=== PATIENT | female | born 1990 | race Caucasian/White ===

== ENCOUNTER 2018-02-11 17:34 | Inpatient (IN) ==
[2018-02-11] MEDS ORDERED: Diphtheria/Tetanus/Pertussis Vaccine Inj 0.5 ML Syringe IM ONE (17:42)
[2018-02-11] MEDS ORDERED: Midazolam Inj 5 MG/ML 1 ML Vial ONE (17:42)
--- NOTE | 2018-02-11 17:49 | XR ---
EXAM DATE: 02/11/2018 5:45 PM EST AGE/SEX: 89 years / Female INDICATIONS: Trauma alert. Seizure and dog attack. CLINICAL DATA: This is the patient's initial encounter. Patient reports that signs and symptoms have been present for 1 day and indicates a pain score of Nonresponsive. MEDICAL/SURGICAL HISTORY: Non-responsive. Non-responsive. COMPARISON: No prior exams available for comparison. FINDINGS: Endotracheal tube has its tip 2 cm above the chilo. The heart is normal. The pulmonary vascular kathryn joseph is normal. The lungs are clear. CONCLUSION: 1. Endotracheal tube in good position 2 cm above the chilo. 2. No acute focal pulmonary infiltrate or pulmonary vascular congestion. Electronically signed by: Michael Jones MD Board Certified Radiologist 02/11/2018 5:47 PM EST
[2018-02-11] MEDS ORDERED: Protamine Sulfate Inj 50 MG/5 ML Vial ONE (17:54)
[2018-02-11] MEDS ORDERED: Heparin 10,000 UNITS/10 ML Vial (for IV use) ONE (17:54)
[2018-02-11] MEDS ORDERED: Heparin - SQ 10,000 UNITS/ML Vial ONE (17:54)
[2018-02-11 17:57] LABS: Baso % (Auto) 0.2 % (0.0-2.0); Eos # (Auto) 0.1 th/mm3 (0.0-0.4); Eos % (Auto) 0.4 % (0.0-4.0); Hematocrit 38.4 % (35.0-46.0); Hemoglobin 13.2 gm/dL (11.6-15.3); Lymph # (Auto) 3.1 th/mm3 (1.0-4.8); Lymph % (Auto) 17.7 % (9.0-44.0); Mean Corpuscular HGB Conc 34.4 % (32.0-36.0); Mean Corpuscular Hemoglobin 33.9 pg (27.0-34.0); Mean Corpuscular Volume 98.4 fL (80.0-100.0); Mean Platelet Volume 8.7 fL (7.0-11.0); Mono # (Auto) 0.9 th/mm3 (0.0-0.9); Mono % (Auto) 5.1 % (0.0-8.0); Neut # (Auto) 13.4 th/mm3 (1.8-7.7); Neut % (Auto) 76.6 % (16.0-70.0); Platelet Count 206 th/mm3 (150-450); Red Cell Distribution Width 12.6 % (11.6-17.2); White Blood Count 17.5 th/mm3 (4.0-11.0)
[2018-02-11 18:10] LABS: Activated Partial Thrombo Time 25.6 sec (23.4-31.7); INR 1.1 Ratio; Prothrombin Time 11.4 sec (9.8-11.6)
--- NOTE | 2018-02-11 18:18 | ED ---
HPI General Stated Complaint: Trauma Alert Time Seen by Provider: 02/11/18 18:06 Source: EMS Mode of arrival: EMS Limitations: other History of Present Illness HPI narrative: The patient is a 27-year-old female who presents to the emergency department via EMS as a trauma alert. According to EMS the patient apparently had a seizure at home, has a known history of seizures, but during the course of the seizure there was several pit bulls in the room. A bystander stated that the pit bulls became excited and 1 of them attacked the patient, biting her in the right neck and left face. EMS states they had to wait approximately 5-10 minutes for the dog to be cleared out of the room prior to assessing the patient. They stated initially the patient was out running around stating she was short of breath. Over the course of the next 5-10 minutes they noted the patient started to deteriorate, became lethargic, and started "gurgling blood "out of the neck and mouth. Therefore, EMS intubated the patient in the field to protect her airway. The patient was noted to be tachycardic in the field with a heart rate in the 120s. EMS did not know if the patient had any allergies to medications or what medication she took for seizures. Upon arrival the patient is unable to answer any questions. Related Data Allergies Allergy/AdvReac Type Severity Reaction Status Date / Time No Allergy Information Allergy Unverified 02/11/18 17:34 Available Review of Systems ROS Unobtainable ROS Unobtainable: unobtainable due to endotracheal tube and other Exam Narrative Exam Narrative: GENERAL: Approximately 33-11[age]-old female who arrives intubated. SKIN: Multiple lacerations and dog bites to the left aspect of the face extending up behind the left ear. Some of these do involve subcutaneous tissue. Multiple puncture wounds to the right aspect of the neck, the most superior one does have a small amount of air bubbles every time the patient has a breath via bag valve mask. HEAD: Multiple dog bites to the left face and right neck. EYES: Pupils equal and round. 3 mm bilateral and reactive. ENT: No nasal bleeding or discharge. Mucous membranes pink and moist. Visible superficial lacerations to the tongue. Tongue ring noted. NECK: Multiple dog bites to the right aspect of the neck. Mild subcutaneous air noted. CARDIOVASCULAR: Regular, tachycardic with a heart rate in the 120s. RESPIRATORY: No accessory muscle use. Clear to auscultation. Breath sounds equal bilaterally. GASTROINTESTINAL: Abdomen soft, non-tender, nondistended. No rigidity noted. MUSCULOSKELETAL: No obvious deformities. No clubbing. No cyanosis. No edema. No visible bites to the extremities. NEUROLOGICAL: Intubated. Eyes closed, nonverbal, does move her arms at times, pulling toward the endotracheal tube prior to sedation. Back: No obvious dog bites to the back. PSYCHIATRIC: Unable to assess. Course Initial Documented Vital Signs Pulse Oximetry 100 02/11/18 18:01 Last Documented Vital Signs Pulse Oximetry 100 02/11/18 18:01 Critical Care Time Critical Care Time: Yes Total Critical Care Time: 35 Attestation: Aggregate critical care time was 35 minutes. Time to perform other separately billable procedures was not included in the critical care time. My time did not include minutes spent treating any other patients simultaneously or on activities that did not directly contribute to the patient's treatment. The services I provided to this patient were to treat and/or prevent clinically significant deterioration that could result in: Anoxia, hypoxia, aspiration, infection, subcutaneous emphysema, air embolism. I provided critical care services requiring my management, as noted below: Chart data review, documentation time, medication orders and management, vital sign assessments/reviewing monitor data, ordering and reviewing lab tests, ordering and interpreting/reviewing x-rays and diagnostic studies, care of the patient and discussion of the patient with the admitting physicians. Medical Decision Making MDM Narrative Medical decision making narrative: Upon arrival the trauma surgeon, Dr. Mccarthy, was present when the patient arrived. The patient was intubated in the field, airway and breathing were intact, there were bilateral breath sounds noted prior to transfer. The patient was transferred to the [facility], 2 large-bore IVs were established, labs are drawn and sent, and the patient was placed on cardiac telemetry monitoring and continuous pulse oximetry monitoring. Chest x- ray was obtained revealing appropriate endotracheal depth, no obvious pneumothorax, small amount of subcutaneous emphysema in the left aspect of the neck noted. The patient was logrolled off the backboard and the back was inspected. The patient received a tetanus shot, Unasyn 3 g intravenously, Keppra 1 g intravenously, IV fluids, propofol 50 mics intravenously, and Versed 5 mg intravenously for sedation. I discussed the patient with the plastic surgeon, Dr. Mireles, who recommended we call [facility] for the complex facial lacerations. Therefore, I discussed the patient with Dr. Severino, F, who will evaluate the patient in the operating room with Dr. Mccarthy. The patient will be admitted to the intensive surgical care unit under the care of the trauma surgeon, Dr. Mccarthy. Medical Screen Exam Complete: Yes Emergency Medical Condition: Yes Differential Diagnosis Differential Diagnosis: Differential diagnosis includes arterial injury, venous injury, esophageal injury, subcutaneous emphysema, complex facial laceration, seizure. Lab Data Result diagrams: 02/11/18 17:36 Lab Results 02/11/18 02/11/18 02/11/18 Range/Units 17:36 17:36 17:36 WBC 17.5 H (4.0-11.0) th/mm3 RBC 3.90 L (4.00-5.30) mil/mm3 Hgb 13.2 (11.6-15.3) gm/dL POC Hgb (Calc) 12.6 (11.6-15.3) g/dL Hct 38.4 (35.0-46.0) % POC Hct 37.0 (35-46.0) % MCV 98.4 (80.0-100.0) fL MCH 33.9 (27.0-34.0) pg MCHC 34.4 (32.0-36.0) % RDW 12.6 (11.6-17.2) % Plt Count 206 (150-450) th/mm3 MPV 8.7 (7.0-11.0) fL Neut % (Auto) 76.6 H (16.0-70.0) % Lymph % (Auto) 17.7 (9.0-44.0) % Payne % (Auto) 5.1 (0.0-8.0) % Eos % (Auto) 0.4 (0.0-4.0) % Baso % (Auto) 0.2 (0.0-2.0) % Neut # (Auto) 13.4 H (1.8-7.7) th/mm3 Lymph # (Auto) 3.1 (1.0-4.8) th/mm3 Payne # (Auto) 0.9 (0.0-0.9) th/mm3 Eos # (Auto) 0.1 (0.0-0.4) th/mm3 Baso # (Auto) 0.0 (0.0-0.2) th/mm3 WBC Differential . Differential Comment Auto diff final PT 11.4 (9.8-11.6) sec INR 1.1 Ratio APTT 25.6 (23.4-31.7) sec POC Sodium 142 (137-144) mmol/L POC Potassium 3.2 L (3.6-5.0) mmol/L POC Chloride 106 (102-111) mmol/L POC BUN 10 (5-21) mg/dL POC Creatinine 0.9 (0.6-1.3) mg/dL POC Glucose 129 H (68-110) mg/dL Imaging Data Attestation: I personally reviewed and interpreted this imaging study as follows : My impression: Chest x-ray reveals endotracheal tube is in good position. No obvious pneumothorax. Radiologist's impression: Chest X-Ray 02/11/18 17:35 CONCLUSION: 1. Endotracheal tube in good position 2 cm above the chilo. 2. No acute focal pulmonary infiltrate or pulmonary vascular congestion. Discharge Plan Discharge Disposition Patient Disposition: ED Admit(ED Internal Use Only) Discharge Condition Condition: Stable Discharge Order Discharge Orders: ED Use Only Admit Order (Routine); Ordered 02/11/18 Ordered By: Félix Martin Discharge Details Diagnosis: Dog bite of multiple sites of scalp and neck Physicians Team ED Provider: Félix Martin Primary Care Provider: UNKNOWN, Attending Provider: Anish Meneses Status ED Status: Admitted Patient
[2018-02-11] MEDS: Ampicillin/Sulbactam Inj 1,500 MG IV.SIG SCH ×2 (18:26)
[2018-02-11] MEDS ORDERED: Post-op Orders (for Pharmacy) OTHER ONE (19:26)
[2018-02-11] MEDS ORDERED: Bisacodyl 10 MG Supp RECTAL PRN (19:26)
[2018-02-11] MEDS ORDERED: Naloxone Inj 0.4 MG/ML Vial IV.PUSH PRN (19:26)
[2018-02-11] MEDS ORDERED: Propofol 1000 mg/100 ml Inj 1,000 MG/100 ML BOTTLE IV.CONT PRN (19:33)
[2018-02-11] MEDS ORDERED: levETIRAcetam 1000mg/100mL Inj 100 ML IV.SIG SCH (19:33)
[2018-02-11] MEDS ORDERED: fentaNYL 10 mcg/mL Premix Drip 2,500 MCG/250 ML BAG IV.SIG PRN (19:34)
[2018-02-11] MEDS ORDERED: Sodium Chloride 0.9% 2 ML Flush PRN IV.FLUSH (19:36)
--- NOTE | 2018-02-11 20:05 | MH ---
cc: Anish Meneses MD DATE OF ADMISSION: 02/11/2018 ADMITTING PHYSICIAN: Anish Meneses MD, of trauma surgery. REASON FOR ADMISSION: Seizure and dog bites to the neck. HISTORY OF PRESENT ILLNESS: This is a 27-year-old female who presents as a priority 1 trauma alert who was brought by EMS. Apparently, the patient had a seizure at home and then was bitten by her dog in the neck numerous times. On arrival, the patient is on a spinal board with a C-collar in place and intubated. PAST MEDICAL HISTORY: Seizures. The patient has been multiple times to this institution. Once I had the name, I looked her up. The patient has been on multiple medications. There is also a medical history of noncompliance with her medications, according to family. PAST SURGICAL HISTORY: I do not see any surgical history in the old records. PHYSICAL EXAMINATION: GENERAL: Reveals a 27-year-old female. HEENT: Normocephalic. No trauma to the head; however, trauma to the face and neck. Pupils are equal and reactive. Extraocular muscles cannot be tested. The patient is orally intubated. NECK: The patient has multiple small lacerations on the left side of the neck which are superficial. On the right side of the neck, the patient has deep lacerations which are bleeding dark venous blood and clearly are located around the area of the jugular and carotid. Dressing is immediately reapplied. CHEST: Bilateral breath sounds. No signs of trauma to the chest. HEART: Regular rhythm. The patient is hemodynamically stable. ABDOMEN: Soft. No rebound. No guarding. No masses. No signs of trauma to the abdomen. The patient does have a bunch of scratches over her chest and abdomen. Some of them are old and some are newer. EXTREMITIES: The patient has bilateral femoral, popliteal, dorsalis pedis and posterior tibial pulses and bilateral brachial, ulnar and radial pulses. BACK: Normal. NEUROLOGIC: The patient is now intubated and ventilated; however, she does move all 4 extremities and tried to rip her tube out. Therefore, she had to be sedated. IMPRESSION AND RECOMMENDATIONS: A patient with multiple dog bites post seizure. The patient will be immediately taken to the operating room due to the depth and bleeding of the right side of the neck injuries. Plastic surgery has been consulted to come up there and help with repair of this. I do not believe initially the patient has any carotid injury, but probably has some branches of the jugular vein injured and I do not know what else. After all well and done, the patient will undergo a CT scan of the head and a CT of the neck soft tissues to evaluate this further. Right now, the patient needs to go to the operating room. CRITICAL CARE TIME: 38 minutes. MD YANCY Lloyd/cheyanne , 07:43 PM , 07:51 PM MTDPolly
--- NOTE | 2018-02-11 20:11 | MP ---
cc: Anish Meneses MD DATE OF OPERATION: 02/11/2018 PREOPERATIVE DIAGNOSIS: Dog bites to the right and left neck, deeper on the right. POSTOPERATIVE DIAGNOSIS: Dog bites to the right and left neck, deeper on the right. OPERATIVE PROCEDURE: Exploration of the right neck with ligation of various branches of the jugular vein and irrigation of the neck tissues with drain placement. SURGEON: Anish Meneses MD ANESTHESIA: General. ESTIMATED BLOOD LOSS: 30 mL. It should be noted that an oral maxillofacial plastic surgeon was treating the left side of the neck and this is described in separate dictation. DESCRIPTION OF PROCEDURE: The patient was prepped and draped in the usual fashion. Then, a right presternocleidomastoid incision was made and deepened down through the platysma to the level of the muscle. The carotid sheath was opened and the common carotid, internal and external carotid arteries are intact. The jugular vein was intact. In the posterior triangle of the neck just between the borders of the trapezius posteriorly, sternocleidomastoid anteriorly and clavicle inferiorly, there were a lot of damaged muscle and fibers torn, probably belonging to the posterior and scalenus muscle and middle scalenus muscle. The splenius muscle was probably also torn. The tears reached down almost to the ligaments of the cervical spine, and in the process, obviously, nerves had been injured as well. I could not locate the accessory nerve here considering the amount of damage. The devitalized muscle was debrided. Small branches of the jugular vein and the carotid artery going posteriorly were clamped and ligated with 2-0 Vicryl and then the area was once more explored. The injuries did not going to the pharynx, which was good. A 7 flat ASHTYN was placed now in the area. Tissues were loosely approximated over it with 3-0 Vicryl in layers and then the skin was closed by plastic surgery. The patient tolerated the procedure well. After the completion of procedure, the patient will go for a CT scan of the head and neck to assess this better, and once she was extubated in the next day, then we will see what the neurologic function is and how much damage was done to the tissues by the bites. MD YANCY Lloyd/cheyanne , 07:47 PM , 07:54 PM
[2018-02-11] MEDS ORDERED: fentaNYL Citrate Inj 100 MCG/2 ML Ampul ONE (21:12)
--- NOTE | 2018-02-11 21:12 | P.OP ---
- Preoperative Diagnosis (1) Dog bite of face (2) Dog bite of multiple sites of scalp and neck - Postoperative Diagnosis (1) Dog bite of multiple sites of scalp and neck (2) Dog bite of face Date of procedure: 02/11/18 Procedure: - Primary closure (layered) of multiple bilateral face and neck lacerations (12- 20cm) Anesthesia: GETA Surgeon: Tee Severino DDS, MD Estimated blood loss (mL): 50 IV fluids (mL): 2,500 Urine output (mL): 100 Pathology: none sent Operation and Findings: Indications for procedure: - The maxillofacial surgery service was consulted intraoperatively for evaluation and management of multiple lacerations to the bilateral neck and face following a dog bite injury. Operative Findings: - Multiple lacerations of the bilateral face and neck extending to the level of the platysma and sternocleidomastoid muscles - Most superior laceration (1cm in length) of the left face extended to the parotid gland. Unable to visualize facial nerve within the wound. - Avulsed tissue in the left post-auricular region. Procedure details: Upon arrival to the operative room, the patient was already intubated oroendotracheally and was positioned supine. Due to the emergent nature of the concomitant neck exploration with the trauma surgery service, informed consent was not obtained preoperatively for closure of the neck and face lacerations. A second timeout was made. The patient was prepped and draped in a usual office supervisor manner. All wounds were then irrigated with copious normal saline. The most superior laceration of the left face was explored and the parotid gland was visualized. No specific facial nerve branches/trunk could be identified. The wounds on the left side of the face were closed in layers with 3-0 Vicryl suture for the deepest layer (platysma and sternocleidomastoid muscle) in an interrupted fashion. The subcutaneous tissue was closed with 4-0 Monocryl in an interrupted fashion. The skin was then reapproximated with 5-0 fast absorbing suture in both a running and interrupted fashion. There appeared to be an avulsive injury of the left post-auricular skin and the tissue was rearranged to obtain primary closure. Next, following exploration of the right neck by the trauma surgery service, attention was turned to the right neck. Multiple superficial lacerations were irrigated with normal saline and closed with 5-0 fast absorbing suture in an interrupted and running fashion. The explored neck wound with a ASHTYN drain that was placed by the trauma surgery service was then closed in layers following irrigation with 3-0 Vicryl, 4-0 Monocryl in an interrupted fashion and 5-0 fast absorbing suture in a running fashion. The ASHTYN drain was secured in place with 1 , 3-0 Nylon drain suture. The remaining lacerations of the right neck were irrigated and closed in layers with 3-0 Vicryl, 4-0 Monocryl sutures in an interrupted fashion and 5-0 fast absorbing suture in a running fashion. The patient was cleansed and dried. Bacitracin was applied to the bilateral neck /face wounds and Xeroform gauze was placed over the bacitracin. Gauze and a Kerlix dressing were placed. The patient was then turned back to the Anesthesia team, where she remained intubated and was transported to the ICU for continued wound care and neurological monitoring.
[2018-02-11] MEDS ORDERED: Propofol Inj 500 MG/50 ML Vial ONE (21:18)
[2018-02-11] MEDS: Sod Chloride 0.9% Inj 1,000 ML IV.CONT SCH (21:30)
[2018-02-11] MEDS: levETIRAcetam 1000mg/100mL Inj 100 ML IV.SIG SCH (21:57)
[2018-02-11] MEDS: Pantoprazole Inj 40 MG Vial IV.PUSH SCH (21:57)
[2018-02-11] MEDS: lamoTRIgine 100 MG Tablet PO SCH (21:58)
[2018-02-11] MEDS: Sodium Chloride 0.9% 2 ML Flush BID IV.FLUSH SCH (21:58)
[2018-02-11] MEDS: Senna/Docusate Sodium 8.6/50 MG Tablet PO SCH (21:58)
[2018-02-11] MEDS: Vancomycin Inj 1,000 MG in Sodium Chlor 0.9% Inj 250 ML IV.SIG SCH (22:26)
--- NOTE | 2018-02-11 23:08 | CT ---
EXAM DATE: 02/11/2018 11:00 PM EST AGE/SEX: 89 years / Female INDICATIONS: Trauma. Seizures with fall. CLINICAL DATA: This is the patient's initial encounter. Patient reports that signs and symptoms have been present for 1 day and indicates a pain score of Nonresponsive. MEDICAL/SURGICAL HISTORY: Non-responsive. Non-responsive. RADIATION DOSE: 38.43 CTDI (mGy) [place]PAR[place] [facility] [place], 02/11/2018. . TECHNIQUE: CT of the head without contrast. Using automated exposure control and adjustment of the mA and/or kV according to patient size, radiation dose was kept as low as reasonably achievable to ob tain optimal diagnostic quality images. DICOM format image data is available electronically for revi ew and comparison. FINDINGS: Cerebrum: The ventricles are normal for age. No evidence of midline shift, mass lesion, hemorrhage o r acute infarction. No extraaxial fluid collections are seen. Posterior Fossa: The cerebellum and brainstem are intact. The 4th ventricle is midline. The cerebe llopontine angle is unremarkable. Extracranial: The visualized portion of the orbits is intact. Subcutaneous emphysema extending from the cervical soft tissues towards the skull base. Skull: The calvaria is intact. No evidence of skull fracture. CONCLUSION: 1. No acute intracranial abnormality. 2. Cervical soft tissue emphysema extending towards the skull base. Please see CT neck report for ad ditional details. . Electronically signed by: Stanley Enrique MD Board Certified Radiologist 02/11/2018 11:06 PM E
--- NOTE | 2018-02-11 23:20 | CT ---
EXAM DATE: 02/11/2018 11:01 PM EST AGE/SEX: 89 years / Female INDICATIONS: Trauma. Dog bite to neck CLINICAL DATA: This is the patient's initial encounter. Patient reports that signs and symptoms have been present for 1 day and indicates a pain score of Nonresponsive. MEDICAL/SURGICAL HISTORY: Non-responsive. Non-responsive. RADIATION DOSE: 15.71 CTDI (mGy) COMPARISON: No prior exams available for comparison. TECHNIQUE: Helical acquisition was performed using a multirow detector CT scanner during the adminis tration of 75 ml Omnipaque 350 (iohexol) nonionic water-soluble contrast as a single exam dose. Usi ng automated exposure control and adjustment of the mA and/or kV according to patient size, radiation dose was kept as low as reasonably achievable to obtain optimal diagnostic quality images. DICOM fo rmat image data is available electronically for review and comparison. FINDINGS: There is extensive subcutaneous emphysema extending from the base of the anterior neck cephalad bilat erally. This reaches the inferior periauricular region on the left and parotid region on the right. S ubcutaneous at the same extends to the parapharyngeal space and oropharynx. There is an apparent ante rior lower cervical soft tissue drain which extends cephalad adjacent to the transverse process of C4 on the right. There is an ET tube in place which terminates at the level of the clavicles. There is obliteration of the laryngeal and oropharyngeal air with obliteration of the tissue planes consistent with diffuse edema. The right thyroid cartilage is displaced posteriorly with respect to the left. T here is no definitive evidence for contrast extravasation. There is circumferential mild to moderate narrowing of the distal right common carotid artery just below the bulb. There is mild luminal irregu larity in the bulb likely reflecting posterior plaque. Carotid branches appear grossly intact. The ju gular veins are patent bilaterally. No evidence for contrast extravasation on delayed imaging. Visual ized lung apices are clear without pneumothorax. Osseous structures appear intact without definitive evidence for acute bony fracture. CONCLUSION: 1. Extensive anterior cervical soft tissue injury with diffuse subcutaneous emphysema extending to n ear the skull base, as described above. 2. There is an ET tube in good position. There is obliteration of the laryngeal and oropharyngeal ai r and fat planes consistent with diffuse edema. 3. Suspect right thyroid cartilage injury which appears displaced posteriorly. 4. Focal circumferential mild to moderate narrowing of the distal right common carotid artery just b elow the bulb. No definitive evidence for dissection or active hemorrhage at this time. Cannot exclud e focal vasospasm. Electronically signed by: Stanley Enrique MD Board Certified Radiologist 02/11/2018 11:18 PM E
[2018-02-12] MEDS ORDERED: Clindamycin 600 mg/NS Premix 600 MG/50 ML PIGGYBACK IV.SIG SCH
[2018-02-12 00:42] LABS: ABG Base Excess -2.7 mmol/L (-2-2); ABG PCO2 41 mmHg (38-42); ABG PO2 219 mmHg (61-120)
[2018-02-12] MEDS ORDERED: Midazolam 100 MG/100 ML Inj 100 MG/100 ML BAG IV.CONT PRN (00:58)
[2018-02-12] MEDS ORDERED: Sod Chloride 0.9% Inj 1,000 ML IV.SIG ONE (01:00)
[2018-02-12] MEDS: Ampicillin/Sulbactam Inj 1,500 MG IV.SIG SCH ×10 (01:43→21:05)
[2018-02-12 05:01] LABS: Baso % (Auto) 0.2 % (0.0-2.0); Hematocrit 27.7 % (35.0-46.0); Lymph # (Auto) 0.9 th/mm3 (1.0-4.8); Lymph % (Auto) 10.8 % (9.0-44.0); Mean Corpuscular Hemoglobin 34.7 pg (27.0-34.0); Mean Corpuscular Volume 96.5 fL (80.0-100.0); Mean Platelet Volume 8.4 fL (7.0-11.0); Mono # (Auto) 0.6 th/mm3 (0.0-0.9); Mono % (Auto) 7.6 % (0.0-8.0); Neut # (Auto) 6.7 th/mm3 (1.8-7.7); Neut % (Auto) 81.4 % (16.0-70.0); Platelet Count 113 th/mm3 (150-450); Red Blood Count 2.87 mil/mm3 (4.00-5.30); Red Cell Distribution Width 12.8 % (11.6-17.2); White Blood Count 8.3 th/mm3 (4.0-11.0)
[2018-02-12 05:27] LABS: Calcium 6.9 mg/dL (8.5-10.1); Carbon Dioxide 23.5 meq/L (21.0-32.0); Potassium 3.9 meq/L (3.5-5.1)
[2018-02-12 05:43] LABS: Albumin 2.8 g/dL (3.4-5.0); Calcium-Albumin Corrected 7.9 mg/dL (8.5-10.1)
--- NOTE | 2018-02-12 07:35 | P.CON ---
History of Present Illness Service: Oral & Maxillofacial Surgery Consult date: 02/11/18 Requesting Physician: Anish Meneses Reason for Consult: Dog bite to face and neck Primary Care Provider: UNKNOWN Chief Complaint: s/p dog bite History of Present Illness: Per report upon arrival to the operating room, the patient is a 29 something year old female with a history of seizure disorder who suffered a seizure and was attacked by one or multiple pit bulls. She was intubated on the scene and transported to [facility]. Due to the continued bleeding from the right neck wounds, she was taken emergently to the operating room for wound exploration. I arrived in the operating room to find the patient intubated and under general anesthetic in the supine position on the operating room table. The Oral & Maxillofacial Surgery Service was consulted for evaluation and management of the multiple facial and neck lacerations sustained during the injury. Review of Systems unobtainable due to endotracheal tube, unobtainable due to mental condition PMFSH - History History Provided By: Patternmaker Sample / EMT Medications and Allergies Active Medications: Active Medications Al Hydroxide/Mg Hydroxide (Milk Of Magnesia Liq) 30 ml PO Q12H PRN PRN Reason: Mild Constipation Albuterol (Duoneb Neb (Prn)) 1 ampul NEB Q2HR NEB PRN PRN Reason: SHORTNESS OF BREATH Albuterol (Duoneb Neb (Valdo)) 1 ampul NEB Q4HR NEB VALDO Bisacodyl (Dulcolax Supp) 10 mg RECTAL DAILY PRN PRN Reason: SEVERE CONSITIPATION Chlorhexidine Gluconate (Peridex 0.12% Oral Kit) 15 ml OROPHARYNG BID@0800, 2000 VALDO Enoxaparin Sodium (Lovenox Inj) 40 mg SQ Q24H VALDO Ampicillin Sodium/Sulbactam Sodium 1,500 mg/ Sodium Chloride 100 mls @ 200 mls/ hr IV.SIG Q6H VALDO Last Infusion: 02/12/18 07:03 Dose: Infused Clindamycin/Sodium Chloride (Cleocin 600 Mg/Ns Premix) 600 mg in 50 mls @ 100 mls/hr IV.SIG Q8H VALDO Stop: 02/12/18 16:29 Last Infusion: 02/12/18 01:43 Dose: Infused Sodium Chloride (Ns Inj) 1,000 mls @ 100 mls/hr IV.CONT .Q10H VALDO Last Admin: 02/11/18 21:30 Dose: 100 mls/hr Vancomycin HCl 1,000 mg/ (Sodium Chloride) 250 mls @ 250 mls/hr IV.SIG Q12H VALDO Stop: 02/12/18 10:59 Last Infusion: 02/11/18 23:49 Dose: Infused Fentanyl (Fentanyl 10 Mcg/Ml Premix Drip) 2,500 mcg in 250 mls @ 5 mls/hr IV.SIG TITRATE PRN; Protocol PRN Reason: Per Protocol Last Titration: 02/12/18 02:15 Dose: 100 mcg/hr, 10 mls/hr Propofol (Diprivan 1000 Mg/100 Ml Inj) 1,000 mg in 100 mls @ 1.893 mls/hr IV.CONT TITRATE PRN; Protocol PRN Reason: Per Protocol Last Titration: 02/12/18 02:15 Dose: 0 mcg/kg/min, 0 mls/hr Levetiracetam (Keppra 1000 Mg/100 Ml Premix) 100 mls @ 400 mls/hr IV.SIG Q12H [facility] Last Infusion: 02/11/18 22:26 Dose: Infused Midazolam HCl (Versed Inj) 100 mg in 100 mls @ 2 mls/hr IV.CONT TITRATE PRN; Protocol PRN Reason: See protocol Last Titration: 02/12/18 07:03 Dose: 4 mg/hr, 4 mls/hr Lactulose (Lactulose Liq) 30 ml PO DAILY PRN PRN Reason: SEVERE CONSITIPATION Lamotrigine (Lamictal) 100 mg PO BID [facility] Last Admin: 02/11/18 21:58 Dose: Not Given Miscellaneous Medication () 1 each OROPHARYNG 0000,0400,1200,1600 [facility] Naloxone HCl (Narcan Inj) 0.4 mg IV.PUSH UNSCH PRN PRN Reason: SEE LABEL COMMENTS Ondansetron HCl (Zofran Inj) 4 mg IV.PUSH Q6H PRN PRN Reason: NAUSEA OR VOMITING Pantoprazole Sodium (Protonix Inj) 40 mg IV.PUSH Q24H [facility] Last Admin: 02/11/18 21:57 Dose: 40 mg Senna/Docusate Sodium (Hanna-Colace) 1 tab PO BID [facility] Last Admin: 02/11/18 21:58 Dose: Not Given Sennosides (Senokot) 17.2 mg PO Q12H PRN PRN Reason: Moderate Constipation Sodium Chloride (Ns Flush) 2 ml IV.FLUSH BID VALDO Last Admin: 02/11/18 21:58 Dose: 2 ml Sodium Chloride (Ns Flush) 2 ml IV.FLUSH PRN PRN PRN Reason: FLUSH AFTER USING IV ACCESS Allergies Allergy/AdvReac Type Severity Reaction Status Date / Time No Allergy Information Allergy Unverified 02/11/18 17:34 Available Physical Exam Vital signs: Vital Signs 02/11/18 18:01 02/11/18 18:09 02/11/18 21:14 Temperature Pulse Rate 84 Respiratory Rate 15 Blood Pressure 101/54 L Pulse Oximetry 100 100 02/11/18 21:15 02/11/18 21:17 02/11/18 21:20 Temperature 98.9 F Pulse Rate 106 H 83 94 H Respiratory Rate 26 H 17 24 Blood Pressure 104/58 L 104/58 L 113/63 Pulse Oximetry 100 100 100 02/11/18 21:23 02/11/18 21:29 02/11/18 22:00 Temperature Pulse Rate 97 H 111 H 87 Respiratory Rate 28 H 46 H 21 Blood Pressure 111/62 122/62 Pulse Oximetry 100 100 100 02/11/18 22:03 02/11/18 23:00 02/12/18 00:00 Temperature 98.3 F Pulse Rate 86 101 H 65 Respiratory Rate 19 37 H 17 Blood Pressure 104/54 L 118/67 93/55 L Pulse Oximetry 100 100 100 02/12/18 00:05 02/12/18 00:36 02/12/18 01:00 Temperature Pulse Rate 62 79 Respiratory Rate 17 16 13 Blood Pressure 91/50 L 105/62 Pulse Oximetry 99 100 100 02/12/18 02:00 02/12/18 03:00 02/12/18 03:19 Temperature Pulse Rate 63 69 Respiratory Rate 16 16 16 Blood Pressure 89/53 L 98/61 L Pulse Oximetry 100 99 100 02/12/18 04:00 02/12/18 05:00 02/12/18 06:00 Temperature 98.2 F Pulse Rate 77 68 73 Respiratory Rate 16 16 16 Blood Pressure 105/67 93/52 L 91/51 L Pulse Oximetry 100 98 100 Intake & Output 02/11/18 02/12/18 02/12/18 18:59 06:59 18:59 Intake Total 1600 / 1600 100 / 100 Output Total 585 / 585 Balance 1015 / 1015 100 / 100 Weight 65.1 kg Intake: IV 1600 / 1600 100 / 100 Unasyn Inj 1,500 MG In NS Inj 200 / 200 100 / 100 100 ML @ 200 mls/hr IV.SIG Q6H VALDO Rx#:[id number] Cleocin 600 mg/NS Premix 600 mg 50 / 50 In 50 ml @ 100 mls/hr IV.SIG Q8H VALDO Rx#:[id number] NS Inj 1,000 ML @ As Directed 1000 / 1000 IV.SIG .Q0M ONE Rx#:[id number] Vancomycin Inj 1,000 MG In NS 250 / 250 Inj 250 ML @ 250 mls/hr IV.SIG Q12H VALDO Rx#:[id number] Keppra 1000 mg/100 mL Premix 100 / 100 100 ML @ 400 mls/hr IV.SIG Q12H VALDO Rx#:[id number] Output: Urine Amount (Catheter) 525 / 525 Indwelling Urethral Catheter 525 / 525 Wound Drainage 60 / 60 # 1 Right Neck 60 / 60 Other: Weight On Admission 63.1 kg Narrative: General: Intubated and under general anesthesia Neurological: Unable to assess cranial nerve function due to patient's mental status HEENT: Head/Face: Multiple lacerations of the bilateral neck and face extending to the level of the platysma, sternocleidomastoid, and left parotid gland, total length between 12-20cm. Unable to visualize facial nerve or any nerve branch involvement at the level of the most superior laceration of the left face, over the cheek. Cardiovascular: Regular rate Pulmonary: Mechanical breath sounds Abdomen: Soft, non-distended. Extremities: Warm, well perfused. - Urinary Catheter Management Indwelling Urethral Catheter Cath placed during this visit: yes Reason for continuing: Hourly intake/output Insertion date: 02/11/18 Results - Labs CBC & Chem 7: 02/12/18 04:50 02/12/18 04:50 Labs: Laboratory Results - last 24 hr 02/11/18 02/11/18 02/11/18 17:36 17:36 17:36 WBC 17.5 H RBC 3.90 L Hgb 13.2 POC Hgb (Calc) 12.6 Hct 38.4 POC Hct 37.0 MCV 98.4 MCH 33.9 MCHC 34.4 RDW 12.6 Plt Count 206 MPV 8.7 Prelim Diff (Auto) Neut % (Auto) 76.6 H Lymph % (Auto) 17.7 Dubois % (Auto) 5.1 Eos % (Auto) 0.4 Baso % (Auto) 0.2 Neut # (Auto) 13.4 H Lymph # (Auto) 3.1 Dubois # (Auto) 0.9 Eos # (Auto) 0.1 Baso # (Auto) 0.0 WBC Differential . Diff Scan Differential Comment Auto diff final PT 11.4 INR 1.1 APTT 25.6 Puncture Site Patient Temperature O2 Saturation ABG pH ABG pCO2 ABG pO2 ABG HCO3 ABG O2 Content ABG Base Excess ABG Methemoglobin Hemoglobin Carboxyhemoglobin O2 Delivery Device Vent Setting Inspired O2 Critical Value POC Sodium 142 Sodium POC Potassium 3.2 L Potassium POC Chloride 106 Chloride Carbon Dioxide Anion Gap POC BUN 10 BUN Creatinine POC Creatinine 0.9 Estimated GFR POC Glucose 129 H Random Glucose Calcium Calcium Adj for Albumin Albumin Blood Type Antibody Screen 02/11/18 02/12/18 02/12/18 17:36 00:25 04:50 WBC 8.3 D RBC 2.87 L Hgb 10.0 L D POC Hgb (Calc) Hct 27.7 L POC Hct MCV 96.5 MCH 34.7 H MCHC 36.0 RDW 12.8 Plt Count 113 L D MPV 8.4 Prelim Diff (Auto) Slide review pending Neut % (Auto) 81.4 H Lymph % (Auto) 10.8 Dubois % (Auto) 7.6 Eos % (Auto) 0.0 Baso % (Auto) 0.2 Neut # (Auto) 6.7 Lymph # (Auto) 0.9 L Dubois # (Auto) 0.6 Eos # (Auto) 0.0 Baso # (Auto) 0.0 WBC Differential . Diff Scan Auto diff confirmed Differential Comment . PT INR APTT Puncture Site Art line Patient Temperature 98.6 O2 Saturation 97 ABG pH 7.35 L ABG pCO2 41 ABG pO2 219 H ABG HCO3 22 ABG O2 Content 14.5 ABG Base Excess -2.7 L ABG Methemoglobin 1.5 Hemoglobin 10.3 L Carboxyhemoglobin 1.1 O2 Delivery Device Ventilator Vent Setting Prvc/ac Inspired O2 50 Critical Value No POC Sodium Sodium POC Potassium Potassium POC Chloride Chloride Carbon Dioxide Anion Gap POC BUN BUN Creatinine POC Creatinine Estimated GFR POC Glucose Random Glucose Calcium Calcium Adj for Albumin Albumin Blood Type A Positive Antibody Screen Negative 02/12/18 04:50 WBC RBC Hgb POC Hgb (Calc) Hct POC Hct MCV MCH MCHC RDW Plt Count MPV Prelim Diff (Auto) Neut % (Auto) Lymph % (Auto) Dubois % (Auto) Eos % (Auto) Baso % (Auto) Neut # (Auto) Lymph # (Auto) Dubois # (Auto) Eos # (Auto) Baso # (Auto) WBC Differential Diff Scan Differential Comment PT INR APTT Puncture Site Patient Temperature O2 Saturation ABG pH ABG pCO2 ABG pO2 ABG HCO3 ABG O2 Content ABG Base Excess ABG Methemoglobin Hemoglobin Carboxyhemoglobin O2 Delivery Device Vent Setting Inspired O2 Critical Value POC Sodium Sodium 144 POC Potassium Potassium 3.9 POC Chloride Chloride 114 H Carbon Dioxide 23.5 Anion Gap 7 POC BUN BUN 12 Creatinine 0.72 POC Creatinine Estimated GFR 70 L POC Glucose Random Glucose 134 H Calcium 6.9 L* Calcium Adj for Albumin 7.9 L Albumin 2.8 L Blood Type Antibody Screen - Imaging Impressions Head CT 02/11/18 00:00 CONCLUSION: 1. No acute intracranial abnormality. 2. Cervical soft tissue emphysema extending towards the skull base. Please see CT neck report for additional details. . Soft Tissue Neck CT 02/11/18 00:00 CONCLUSION: 1. Extensive anterior cervical soft tissue injury with diffuse subcutaneous emphysema extending to near the skull base, as described above. 2. There is an ET tube in good position. There is obliteration of the laryngeal and oropharyngeal air and fat planes consistent with diffuse edema. 3. Suspect right thyroid cartilage injury which appears displaced posteriorly. 4. Focal circumferential mild to moderate narrowing of the distal right common carotid artery just below the bulb. No definitive evidence for dissection or active hemorrhage at this time. Cannot exclude focal vasospasm. Chest X-Ray 02/11/18 17:35 CONCLUSION: 1. Endotracheal tube in good position 2 cm above the chilo. 2. No acute focal pulmonary infiltrate or pulmonary vascular congestion. Assessment and Plan - Assessment (1) Dog bite of face Code(s): S01.85XA - Open bite of other part of head, initial encounter; W54.0XXA - Bitten by dog, initial encounter Status: Acute (2) Dog bite of multiple sites of scalp and neck Code(s): S01.05XA - Open bite of scalp, initial encounter; S11.95XA - Open bite of unspecified part of neck, initial encounter; W54.0XXA - Bitten by dog, initial encounter Status: Acute - Plan 29 something y/o F with a history of seizure disorder who suffered a dog bite injury with multiple lacerations to the bilateral neck and face. Patient is now s/p exploration of the right neck and primary closure of bilateral neck and face lacerations on 02/11/18. A ASHTYN drain was also placed in the right neck. Recommendations: - Bacitracin, Xeroform, gauze and Kerlix to bilateral neck, change dressing once a day. - Continue antibiotic prophylaxis, if allergy status can be confirmed and patient is not allergic to penicillins, would prefer to use Unasyn 3g IV q6h with transition to PO Augmentin at discharge. If PCN allergic, OK with clindamycin - ASHTYN drain to be managed by trauma surgery service - Pain management per primary service. Thank you for this consultation. Please do not hesitate to contact me with any questions or concerns at [phone]. Tee Severino DDS, (2) Dog bite of multiple sites of scalp and neck Qualifiers: Encounter type: initial encounter Qualified Code(s): S01.05XA - Open bite of scalp, initial encounter; S11.95XA - Open bite of unspecified part of neck, initial encounter; W54.0XXA - Bitten by dog, initial encounter
[2018-02-12] MEDS: levETIRAcetam 1000mg/100mL Inj 100 ML IV.SIG SCH ×2 (07:54→20:57)
[2018-02-12] MEDS ORDERED: Chlorhexidine 0.12% Oral Kit 15 ML UDC OROPHARYNG SCH (08:00)
--- NOTE | 2018-02-12 11:53 | MB ---
cc: Althea Carrasco MD DATE: 02/12/2018 REASON FOR CONSULTATION: History of epilepsy. HISTORY OF PRESENT ILLNESS: This is a 27-year-old woman who came in as a trauma alert, status post dog bite, severe injury to her neck, intubated. Apparently had a seizure at home and brought in after the dog bite. She has on a spinal board with a C-collar and intubated. She has been here in the past, untold for epilepsy. Her mother states that her neurologist is in [place], and she has been sent to [place] for prolonged EEG. The results of that are unknown. She is ready to be extubated. PHYSICAL EXAMINATION: She is awake and alert. She is following commands. The pupils are reactive. The face looks fairly symmetrical. Cannot assess speech. Her neck is covered with bandages postop of wounds. She is moving everything equally. Follows commands as well. LABORATORY DATA: Labs were reviewed. Her hemoglobin today is 10. Chemistries: Calcium 6.9, adjusted for albumin 7.9, albumin is 2.8, glucose 134. IMAGING: CT head, nothing acute noted. She is placed on Keppra as she was n.p.o. 1 g every 12 hours. She also apparently takes lamotrigine 100 mg b.i.d. and possibly Trileptal, which really is unknown dose. Apparently, her boyfriend administers this medicine. She has a therapist who can verify that she takes that, but unfortunately on the phone the therapist was driving and could not call back. IMPRESSION: A 27-year-old woman with a possible history of epilepsy. Really unknown the extent of her epilepsy, but since childhood I am told. The patient will did undergo an EEG. Certainly, we can get an MRI. I see no problem from that perspective to get an MRI of the brain to make sure that there is nothing abnormal from that perspective. Last MRI on file here is from 2008. I will continue her lamotrigine 100 mg b.i.d. Continue her Keppra for now and if someone calls back and give us her medicine dose of Trileptal, consider restarting that. At some point in time, if she has a prolonged stay in the hospital those records from her neurologist at [place] should be sent over so we can see the final outcome of her prolonged EEG. Continue current medical care. Monitor for seizure and seizure precautions. Ativan to be used p.r.n. for any witnessed prolonged seizure. As stated, please restart her lamotrigine as soon as she is extubated and able to swallow, and if she is in fact on Trileptal restart that at her dose. MD KALIN Grider/shanelle , 11:29 AM , 11:35 AM
--- NOTE | 2018-02-12 11:54 | P.PNCC ---
Subjective Brief History: A patient with multiple dog bites post seizure. The patient will be immediately taken to the operating room due to the depth and bleeding of the right side of the neck injuries. Plastic surgery has been consulted to come up there and help with repair of this. I do not believe initially the patient has any carotid injury, but probably has some branches of the jugular vein injured and I do not know what else. After all well and done, the patient will undergo a CT scan of the head and a CT of the neck soft tissues to evaluate this further. Patient was taken to the operating room and underwent complex exploration of the right neck with exploration of carotid artery and ligation of various branches of same and jugular vein Noted was distraction of the muscular and nerve structures in the posterior triangle of the neck Patient is now in the ICU intubated ventilated and sedated Neurology was consulted for seizures and expert help from oromaxillofacial plastic surgery is greatly appreciated 24 Hour Review/Hospital Course: 02/12/2018 Sedation stopped patient is awake alert Successfully extubated Bilateral breath sounds good pulmonary function and hemodynamically stable Right pre-sternocleidomastoid incision is clean and dry Plastic surgery work appears to be very nice and clean DC ASHTYN Neurologic injuries to the right brachial plexus and surrounding structures will need to be assessed once patient is fully awake Neurology consult is greatly appreciated Seizure workup in progress Patient remains on Keppra and Lamictal and any other medications have been be deemed necessary by neurology We will start on diet Objective Vital Signs / I&O: Vital Signs 02/11/18 18:01 02/11/18 18:09 02/11/18 21:14 Temperature Pulse Rate 84 Respiratory Rate 15 Blood Pressure 101/54 L Pulse Oximetry 100 100 02/11/18 21:15 02/11/18 21:17 02/11/18 21:20 Temperature 98.9 F Pulse Rate 106 H 83 94 H Respiratory Rate 26 H 17 24 Blood Pressure 104/58 L 104/58 L 113/63 Pulse Oximetry 100 100 100 02/11/18 21:23 02/11/18 21:29 02/11/18 22:00 Temperature Pulse Rate 97 H 111 H 87 Respiratory Rate 28 H 46 H 21 Blood Pressure 111/62 122/62 Pulse Oximetry 100 100 100 02/11/18 22:03 02/11/18 23:00 02/12/18 00:00 Temperature 98.3 F Pulse Rate 86 101 H 65 Respiratory Rate 19 37 H 17 Blood Pressure 104/54 L 118/67 93/55 L Pulse Oximetry 100 100 100 02/12/18 00:05 02/12/18 00:36 02/12/18 01:00 Temperature Pulse Rate 62 79 Respiratory Rate 17 16 13 Blood Pressure 91/50 L 105/62 Pulse Oximetry 99 100 100 02/12/18 02:00 02/12/18 03:00 02/12/18 03:19 Temperature Pulse Rate 63 69 Respiratory Rate 16 16 16 Blood Pressure 89/53 L 98/61 L Pulse Oximetry 100 99 100 02/12/18 04:00 02/12/18 05:00 02/12/18 06:00 Temperature 98.2 F Pulse Rate 77 68 73 Respiratory Rate 16 16 16 Blood Pressure 105/67 93/52 L 91/51 L Pulse Oximetry 100 98 100 02/12/18 07:00 02/12/18 08:00 02/12/18 08:11 Temperature 98.4 F Pulse Rate 91 H 112 H 77 Respiratory Rate 25 H 34 H 14 Blood Pressure 98/52 L 125/56 L Pulse Oximetry 100 100 02/12/18 09:00 02/12/18 10:00 Temperature Pulse Rate 78 78 Respiratory Rate 14 Blood Pressure 97/56 L Pulse Oximetry 100 Intake & Output 02/11/18 02/12/18 02/12/18 18:59 06:59 18:59 Intake Total 1600 / 1600 100 / 100 Output Total 585 / 585 Balance 1015 / 1015 100 / 100 Weight 65.1 kg Intake: IV 1600 / 1600 100 / 100 Unasyn Inj 1,500 MG In NS Inj 200 / 200 100 / 100 100 ML @ 200 mls/hr IV.SIG Q6H MARY Rx#:[id number] Cleocin 600 mg/NS Premix 600 mg 50 / 50 In 50 ml @ 100 mls/hr IV.SIG Q8H MARY Rx#:[id number] NS Inj 1,000 ML @ As Directed 1000 / 1000 IV.SIG .Q0M ONE Rx#:[id number] Vancomycin Inj 1,000 MG In NS 250 / 250 Inj 250 ML @ 250 mls/hr IV.SIG Q12H MARY Rx#:[id number] Keppra 1000 mg/100 mL Premix 100 / 100 100 ML @ 400 mls/hr IV.SIG Q12H MARY Rx#:[id number] Output: Urine Amount (Catheter) 525 / 525 Indwelling Urethral Catheter 525 / 525 Wound Drainage 60 / 60 # 1 Right Neck 60 / 60 Other: Weight On Admission 63.1 kg Result Diagrams: 02/12/18 04:50 02/12/18 04:50 Imaging: Impressions Head CT 02/11/18 00:00 CONCLUSION: 1. No acute intracranial abnormality. 2. Cervical soft tissue emphysema extending towards the skull base. Please see CT neck report for additional details. . Soft Tissue Neck CT 02/11/18 00:00 CONCLUSION: 1. Extensive anterior cervical soft tissue injury with diffuse subcutaneous emphysema extending to near the skull base, as described above. 2. There is an ET tube in good position. There is obliteration of the laryngeal and oropharyngeal air and fat planes consistent with diffuse edema. 3. Suspect right thyroid cartilage injury which appears displaced posteriorly. 4. Focal circumferential mild to moderate narrowing of the distal right common carotid artery just below the bulb. No definitive evidence for dissection or active hemorrhage at this time. Cannot exclude focal vasospasm. Chest X-Ray 02/11/18 17:35 CONCLUSION: 1. Endotracheal tube in good position 2 cm above the chilo. 2. No acute focal pulmonary infiltrate or pulmonary vascular congestion. Disinhibition Score: 26.25 Aggression Score: 28.00 Lability Score: 23.32 Agitated Behavior Total Score: 25 Assessment and Plan Attestation: Critical care 34 minutes
[2018-02-12] MEDS ORDERED: Oral Hygiene Kit OROPHARYNG SCH (12:00)
[2018-02-12] MEDS: Vancomycin Inj 1,000 MG in Sodium Chlor 0.9% Inj 250 ML IV.SIG SCH (12:47)
[2018-02-12] MEDS: lamoTRIgine 100 MG Tablet PO SCH ×2 (12:48→20:59)
--- NOTE | 2018-02-12 12:58 | P.PN ---
Subjective Interval history: Extubated today, doing well on face mask. Reports some discomfort in her neck. AAOx3. Physical Exam Vital signs: Vital Signs 02/11/18 18:01 02/11/18 18:09 02/11/18 21:14 Temperature Pulse Rate 84 Respiratory Rate 15 Blood Pressure 101/54 L Pulse Oximetry 100 100 02/11/18 21:15 02/11/18 21:17 02/11/18 21:20 Temperature 98.9 F Pulse Rate 106 H 83 94 H Respiratory Rate 26 H 17 24 Blood Pressure 104/58 L 104/58 L 113/63 Pulse Oximetry 100 100 100 02/11/18 21:23 02/11/18 21:29 02/11/18 22:00 Temperature Pulse Rate 97 H 111 H 87 Respiratory Rate 28 H 46 H 21 Blood Pressure 111/62 122/62 Pulse Oximetry 100 100 100 02/11/18 22:03 02/11/18 23:00 02/12/18 00:00 Temperature 98.3 F Pulse Rate 86 101 H 65 Respiratory Rate 19 37 H 17 Blood Pressure 104/54 L 118/67 93/55 L Pulse Oximetry 100 100 100 02/12/18 00:05 02/12/18 00:36 02/12/18 01:00 Temperature Pulse Rate 62 79 Respiratory Rate 17 16 13 Blood Pressure 91/50 L 105/62 Pulse Oximetry 99 100 100 02/12/18 02:00 02/12/18 03:00 02/12/18 03:19 Temperature Pulse Rate 63 69 Respiratory Rate 16 16 16 Blood Pressure 89/53 L 98/61 L Pulse Oximetry 100 99 100 02/12/18 04:00 02/12/18 05:00 02/12/18 06:00 Temperature 98.2 F Pulse Rate 77 68 73 Respiratory Rate 16 16 16 Blood Pressure 105/67 93/52 L 91/51 L Pulse Oximetry 100 98 100 02/12/18 07:00 02/12/18 08:00 02/12/18 08:11 Temperature 98.4 F Pulse Rate 91 H 112 H 77 Respiratory Rate 25 H 34 H 14 Blood Pressure 98/52 L 125/56 L Pulse Oximetry 100 100 02/12/18 09:00 02/12/18 10:00 02/12/18 12:15 Temperature Pulse Rate 78 78 88 Respiratory Rate 14 12 Blood Pressure 97/56 L Pulse Oximetry 100 Intake & Output 02/11/18 02/12/18 02/12/18 18:59 06:59 18:59 Intake Total 1600 / 1600 100 / 100 Output Total 585 / 585 Balance 1015 / 1015 100 / 100 Weight 65.1 kg Intake: IV 1600 / 1600 100 / 100 Unasyn Inj 1,500 MG In NS Inj 200 / 200 100 / 100 100 ML @ 200 mls/hr IV.SIG Q6H MARY Rx#:[id number] Cleocin 600 mg/NS Premix 600 mg 50 / 50 In 50 ml @ 100 mls/hr IV.SIG Q8H MARY Rx#:[id number] NS Inj 1,000 ML @ As Directed 1000 / 1000 IV.SIG .Q0M ONE Rx#:[id number] Vancomycin Inj 1,000 MG In NS 250 / 250 Inj 250 ML @ 250 mls/hr IV.SIG Q12H MARY Rx#:[id number] Keppra 1000 mg/100 mL Premix 100 / 100 100 ML @ 400 mls/hr IV.SIG Q12H MARY Rx#:[id number] Output: Urine Amount (Catheter) 525 / 525 Indwelling Urethral Catheter 525 / 525 Wound Drainage 60 / 60 # 1 Right Neck 60 / 60 Other: Weight On Admission 63.1 kg Narrative: General: Awake, following commands. Neurological: CNV and CNVII intact bilaterally. HEENT: Head/Face: Repaired lacerations of the bilateral neck and face, sutures in place , hemostatic. Intraorally, no lacerations appreciated, normal salivary flow. Dental caries present on left mandibular molars. ASHTYN drain in place on right neck with sanguinous output. Cardiovascular: Regular rate Pulmonary: Normal work of breathing on face mask Abdomen: Soft, non-distended. Extremities: Warm, well perfused. - Urinary Catheter Management Indwelling Urethral Catheter Cath placed during this visit: yes Reason for continuing: Hourly intake/output Insertion date: 02/11/18 Results - Labs CBC & Chem 7: 02/12/18 04:50 02/12/18 04:50 Laboratory Results - last 24 hr 02/11/18 02/11/18 02/11/18 17:36 17:36 17:36 WBC 17.5 H RBC 3.90 L Hgb 13.2 POC Hgb (Calc) 12.6 Hct 38.4 POC Hct 37.0 MCV 98.4 MCH 33.9 MCHC 34.4 RDW 12.6 Plt Count 206 MPV 8.7 Prelim Diff (Auto) Neut % (Auto) 76.6 H Lymph % (Auto) 17.7 [place] % (Auto) 5.1 Eos % (Auto) 0.4 Baso % (Auto) 0.2 Neut # (Auto) 13.4 H Lymph # (Auto) 3.1 [place] # (Auto) 0.9 Eos # (Auto) 0.1 Baso # (Auto) 0.0 WBC Differential . Diff Scan Differential Comment Auto diff final PT 11.4 INR 1.1 APTT 25.6 Puncture Site Patient Temperature O2 Saturation ABG pH ABG pCO2 ABG pO2 ABG HCO3 ABG O2 Content ABG Base Excess ABG Methemoglobin Hemoglobin Carboxyhemoglobin O2 Delivery Device Vent Setting Inspired O2 Critical Value POC Sodium 142 Sodium POC Potassium 3.2 L Potassium POC Chloride 106 Chloride Carbon Dioxide Anion Gap POC BUN 10 BUN Creatinine POC Creatinine 0.9 Estimated GFR POC Glucose 129 H Random Glucose Calcium Calcium Adj for Albumin Albumin Nasal Screen MRSA (PCR) Blood Type Antibody Screen 02/11/18 02/11/18 02/12/18 17:36 21:20 00:25 WBC RBC Hgb POC Hgb (Calc) Hct POC Hct MCV MCH MCHC RDW Plt Count MPV Prelim Diff (Auto) Neut % (Auto) Lymph % (Auto) [place] % (Auto) Eos % (Auto) Baso % (Auto) Neut # (Auto) Lymph # (Auto) [place] # (Auto) Eos # (Auto) Baso # (Auto) WBC Differential Diff Scan Differential Comment PT INR APTT Puncture Site Art line Patient Temperature 98.6 O2 Saturation 97 ABG pH 7.35 L ABG pCO2 41 ABG pO2 219 H ABG HCO3 22 ABG O2 Content 14.5 ABG Base Excess -2.7 L ABG Methemoglobin 1.5 Hemoglobin 10.3 L Carboxyhemoglobin 1.1 O2 Delivery Device Ventilator Vent Setting Prvc/ac Inspired O2 50 Critical Value No POC Sodium Sodium POC Potassium Potassium POC Chloride Chloride Carbon Dioxide Anion Gap POC BUN BUN Creatinine POC Creatinine Estimated GFR POC Glucose Random Glucose Calcium Calcium Adj for Albumin Albumin Nasal Screen MRSA (PCR) Not detected Blood Type A Positive Antibody Screen Negative 02/12/18 02/12/18 04:50 04:50 WBC 8.3 D RBC 2.87 L Hgb 10.0 L D POC Hgb (Calc) Hct 27.7 L POC Hct MCV 96.5 MCH 34.7 H MCHC 36.0 RDW 12.8 Plt Count 113 L D MPV 8.4 Prelim Diff (Auto) Slide review pending Neut % (Auto) 81.4 H Lymph % (Auto) 10.8 [place] % (Auto) 7.6 Eos % (Auto) 0.0 Baso % (Auto) 0.2 Neut # (Auto) 6.7 Lymph # (Auto) 0.9 L [place] # (Auto) 0.6 Eos # (Auto) 0.0 Baso # (Auto) 0.0 WBC Differential . Diff Scan Auto diff confirmed Differential Comment . PT INR APTT Puncture Site Patient Temperature O2 Saturation ABG pH ABG pCO2 ABG pO2 ABG HCO3 ABG O2 Content ABG Base Excess ABG Methemoglobin Hemoglobin Carboxyhemoglobin O2 Delivery Device Vent Setting Inspired O2 Critical Value POC Sodium Sodium 144 POC Potassium Potassium 3.9 POC Chloride Chloride 114 H Carbon Dioxide 23.5 Anion Gap 7 POC BUN BUN 12 Creatinine 0.72 POC Creatinine Estimated GFR 70 L POC Glucose Random Glucose 134 H Calcium 6.9 L* Calcium Adj for Albumin 7.9 L Albumin 2.8 L Nasal Screen MRSA (PCR) Blood Type Antibody Screen - Imaging Impressions Head CT 02/11/18 00:00 CONCLUSION: 1. No acute intracranial abnormality. 2. Cervical soft tissue emphysema extending towards the skull base. Please see CT neck report for additional details. . Soft Tissue Neck CT 02/11/18 00:00 CONCLUSION: 1. Extensive anterior cervical soft tissue injury with diffuse subcutaneous emphysema extending to near the skull base, as described above. 2. There is an ET tube in good position. There is obliteration of the laryngeal and oropharyngeal air and fat planes consistent with diffuse edema. 3. Suspect right thyroid cartilage injury which appears displaced posteriorly. 4. Focal circumferential mild to moderate narrowing of the distal right common carotid artery just below the bulb. No definitive evidence for dissection or active hemorrhage at this time. Cannot exclude focal vasospasm. Chest X-Ray 02/11/18 17:35 CONCLUSION: 1. Endotracheal tube in good position 2 cm above the chilo. 2. No acute focal pulmonary infiltrate or pulmonary vascular congestion. Assessment and Plan - Assessment (1) Dog bite of face Code(s): S01.85XA - Open bite of other part of head, initial encounter; W54.0XXA - Bitten by dog, initial encounter Status: Acute (2) Dog bite of multiple sites of scalp and neck Code(s): S01.05XA - Open bite of scalp, initial encounter; S11.95XA - Open bite of unspecified part of neck, initial encounter; W54.0XXA - Bitten by dog, initial encounter Status: Acute - Plan 29 something y/o F with a history of seizure disorder who suffered a dog bite injury with multiple lacerations to the bilateral neck and face. Patient is now s/p exploration of the right neck and primary closure of bilateral neck and face lacerations on 02/11/18. A ASHTYN drain was also placed in the right neck. Recommendations: - Bacitracin, Xeroform, gauze and Kerlix to bilateral neck, change dressing once a day. Upon discharge, bacitracin for total of 5 days to the bilateral neck. Do not submerge incision for at least two weeks. OK to shower but do not direct shower stream to neck. - Continue antibiotic prophylaxis, if allergy status can be confirmed and patient is not allergic to penicillins, would prefer to use Unasyn 3g IV q6h with transition to PO Augmentin at discharge. If PCN allergic, OK with clindamycin - ASHTYN drain to be managed by trauma surgery service - Pain management per primary service. - Patient to follow-up 1 week after discharge [facility] with [facility] ([facility] [place] [address], ) Thank you for this consultation. Please do not hesitate to contact me with any questions or concerns at [phone]. Tee Seevrino DDS, (2) Dog bite of multiple sites of scalp and neck Qualifiers: Encounter type: initial encounter Qualified Code(s): S01.05XA - Open bite of scalp, initial encounter; S11.95XA - Open bite of unspecified part of neck, initial encounter; W54.0XXA - Bitten by dog, initial encounter
[2018-02-12] MEDS ORDERED: Influenza (Quadrivalent) Vaccine 0.5 ML Syringe IM ONE (15:30)
[2018-02-12] MEDS: Senna/Docusate Sodium 8.6/50 MG Tablet PO SCH ×2 (16:32→20:59)
[2018-02-12] MEDS: Sodium Chloride 0.9% 2 ML Flush BID IV.FLUSH SCH ×2 (16:33→20:59)
[2018-02-12] MEDS: Morphine Inj 4 MG/ML Vial IV.PUSH PRN ×2 (17:09→21:22)
--- NOTE | 2018-02-12 17:20 | MG ---
cc: Ole Wilkinson MD, PhD TEST NUMBER: [id number] TECHNIQUE: A 17-channel EEG. DESCRIPTION: The background rhythm shows generalized slowing in the delta frequency. There is a faster rhythm superimposed on this, which is beta activity, which I suspect is due to medication effect. I do not see any true epileptiform discharges or lateralizing features. INTERPRETATION: This is an abnormal study consistent with his significant encephalopathy. There is beta activity superimposed which I think is most likely medication effect. Ole Wilkinson MD, PhD MONIKA/ct , 04:41 PM , 04:46 PM
[2018-02-12] MEDS: Pantoprazole Inj 40 MG Vial IV.PUSH SCH (20:59)
[2018-02-12] MEDS: Enoxaparin Inj 40 MG/0.4 ML Syringe SQ SCH (21:05)
[2018-02-13] MEDS: Ampicillin/Sulbactam Inj 1,500 MG IV.SIG SCH ×8 (01:07→18:01)
[2018-02-13] MEDS: Morphine Inj 4 MG/ML Vial IV.PUSH PRN ×6 (01:11→20:27)
--- NOTE | 2018-02-13 02:12 | XR ---
EXAM DATE: 02/13/2018 2:02 AM EST AGE/SEX: 27 years / Female INDICATIONS: Shortness of breath. CLINICAL DATA: This is the patient's subsequent encounter. Patient reports that signs and symptoms h ave been present for 3 days and indicates a pain score of Nonresponsive. MEDICAL/SURGICAL HISTORY: Non-responsive. Non-responsive. COMPARISON: C, CHEST 1V SINGLE AP, 02/11/2018. . FINDINGS: No significant new focal pleural or parenchymal opacities. Patient has been extubated. The cardiomedi astinal contours are unremarkable. Osseous structures are intact. CONCLUSION: 1. Status post extubation without acute abnormality. Electronically signed by: Stanley Enrique MD Board Certified Radiologist 02/13/2018 2:10 AM PIERRE Dodd
[2018-02-13 04:00] LABS: Baso % (Auto) 0.4 % (0.0-2.0); Eos % (Auto) 0.6 % (0.0-4.0); Hematocrit 26.3 % (35.0-46.0); Hemoglobin 9.2 gm/dL (11.6-15.3); Lymph # (Auto) 1.2 th/mm3 (1.0-4.8); Lymph % (Auto) 24.3 % (9.0-44.0); Mean Corpuscular Hemoglobin 34.3 pg (27.0-34.0); Mean Platelet Volume 9.5 fL (7.0-11.0); Mono # (Auto) 0.4 th/mm3 (0.0-0.9); Mono % (Auto) 8.4 % (0.0-8.0); Neut # (Auto) 3.2 th/mm3 (1.8-7.7); Neut % (Auto) 66.3 % (16.0-70.0); Platelet Count 93 th/mm3 (150-450); Red Blood Count 2.69 mil/mm3 (4.00-5.30); White Blood Count 4.9 th/mm3 (4.0-11.0)
[2018-02-13 04:30] LABS: Anion Gap 9 meq/L (5-15); Blood Urea Nitrogen 6 mg/dL (7-18); Calcium 7.4 mg/dL (8.5-10.1); Carbon Dioxide 23.2 meq/L (21.0-32.0); Chloride 111 meq/L (98-107); Glomerular Filtration Rate Greater Than 89 mL/min (>89); Glucose,Random 92 mg/dL (74-106); Sodium 143 meq/L (136-145)
[2018-02-13 04:31] LABS: Potassium 2.8 meq/L (3.5-5.1)
[2018-02-13 04:41] LABS: Albumin 2.8 g/dL (3.4-5.0); Calcium-Albumin Corrected 8.4 mg/dL (8.5-10.1)
[2018-02-13] MEDS ORDERED: Magnesium Sulfate Inj 4 GM in Sodium Chlor 0.9% Inj 92 ML IV.SIG PRN (04:53)
[2018-02-13] MEDS ORDERED: Magnesium Oxide 400 MG Tablet PO PRN (04:53)
[2018-02-13] MEDS ORDERED: Potassium Chloride 25 MEQ Effervescent Tablet PO PRN (04:53)
[2018-02-13] MEDS ORDERED: Potassium Phosphate 500 MG Soluble Tablet PO PRN ×2 (04:53)
[2018-02-13] MEDS ORDERED: Sodium Phosphate Inj 30 MMOL in Sodium Chlor 0.9% Inj 250 ML IV.SIG PRN (04:53)
[2018-02-13] MEDS ORDERED: Potassium Chlor 40 mEq Premix 40 MEQ/100 ML PIGGYBACK IV.SIG PRN ×2 (04:53)
[2018-02-13] MEDS ORDERED: Magnesium Sulfate Inj 2 GM in Sodium Chlor 0.9% Inj 96 ML IV.SIG PRN (04:53)
[2018-02-13] MEDS ORDERED: Potassium Phosphate Inj 30 MMOL in Sodium Chlor 0.9% Inj 250 ML IV.SIG PRN (04:53)
[2018-02-13] MEDS ORDERED: Potassium Chlor 20 mEq Premix 20 MEQ/100 ML PIGGYBACK IV.SIG PRN (04:53)
[2018-02-13] MEDS: Potassium Chlor 20 mEq Premix 20 MEQ/100 ML PIGGYBACK IV.SIG PRN ×2 (05:02→07:11)
[2018-02-13 05:39] LABS: Platelet Morphology Normal (Normal)
--- NOTE | 2018-02-13 06:48 | P.PN ---
Subjective Interval history: Afebrile. No acute events overnight. Patient is extubated and on room air. Physical Exam Vital signs: Vital Signs 02/12/18 07:00 02/12/18 08:00 02/12/18 08:11 Temperature 98.4 F Pulse Rate 91 H 112 H 77 Respiratory Rate 25 H 34 H 14 Blood Pressure 98/52 L 125/56 L Pulse Oximetry 100 100 02/12/18 09:00 02/12/18 10:00 02/12/18 11:00 Temperature Pulse Rate 78 105 H 84 Respiratory Rate 14 20 13 Blood Pressure 97/56 L 99/58 L 98/58 L Pulse Oximetry 100 100 100 02/12/18 11:30 02/12/18 12:00 02/12/18 12:15 Temperature 98 F Pulse Rate 93 H 88 88 Respiratory Rate 17 13 12 Blood Pressure 102/60 99/56 L Pulse Oximetry 98 99 02/12/18 12:30 02/12/18 13:00 02/12/18 14:00 Temperature Pulse Rate 96 H 105 H 110 H Respiratory Rate 17 24 19 Blood Pressure 110/58 L 106/59 L 105/58 L Pulse Oximetry 100 100 100 02/12/18 14:30 02/12/18 15:00 02/12/18 15:30 Temperature Pulse Rate 118 H 99 H 98 H Respiratory Rate 28 H 22 20 Blood Pressure 102/82 93/77 L 106/59 L Pulse Oximetry 100 100 100 02/12/18 16:00 02/12/18 16:04 02/12/18 16:27 Temperature Pulse Rate 100 H 121 H 100 H Respiratory Rate 38 H 24 Blood Pressure 111/73 Pulse Oximetry 97 97 02/12/18 16:48 02/12/18 17:00 02/12/18 18:00 Temperature Pulse Rate 100 H 116 H 103 H Respiratory Rate 18 35 H 27 H Blood Pressure 112/70 112/60 Pulse Oximetry 99 97 02/12/18 19:00 02/12/18 20:00 02/12/18 21:00 Temperature 98.3 F Pulse Rate 108 H 106 H 102 H Respiratory Rate 7 L 16 21 Blood Pressure 121/59 L 118/65 108/63 Pulse Oximetry 95 99 97 02/12/18 21:04 02/12/18 22:00 02/12/18 23:00 Temperature Pulse Rate 98 H 111 H 111 H Respiratory Rate 20 18 27 H Blood Pressure 101/60 100/57 L Pulse Oximetry 96 96 02/12/18 23:50 02/13/18 00:00 02/13/18 01:00 Temperature 99.4 F Pulse Rate 101 H 98 H 97 H Respiratory Rate 16 23 21 Blood Pressure 106/63 107/66 Pulse Oximetry 97 98 02/13/18 02:00 02/13/18 03:00 02/13/18 04:00 Temperature 99.3 F Pulse Rate 91 H 112 H 91 H Respiratory Rate 15 28 H 20 Blood Pressure 107/62 111/70 107/68 Pulse Oximetry 93 L 96 98 02/13/18 04:03 02/13/18 05:00 02/13/18 06:00 Temperature Pulse Rate 83 86 93 H Respiratory Rate 19 23 17 Blood Pressure 102/68 Pulse Oximetry 98 97 Intake & Output 02/12/18 02/12/18 02/13/18 06:59 18:59 06:59 Intake Total 1600 / 1600 1154 / 1154 300 / 300 Output Total 585 / 585 750 / 750 20 / 20 Balance 1015 / 1015 404 / 404 280 / 280 Weight 65.1 kg 63 kg 64.5 kg Intake: IV 1600 / 1600 504 / 504 300 / 300 Unasyn Inj 1,500 MG In NS Inj 200 / 200 300 / 300 200 / 200 100 ML @ 200 mls/hr IV.SIG Q6H MARY Rx#:[id number] Cleocin 600 mg/NS Premix 600 mg 50 / 50 In 50 ml @ 100 mls/hr IV.SIG Q8H MARY Rx#:[id number] Cleocin Inj 600 MG In NS Inj 104 / 104 100 ML @ 100 mls/hr IV.SIG Q8H MARY Rx#:[id number] NS Inj 1,000 ML @ As Directed 1000 / 1000 IV.SIG .Q0M ONE Rx#:[id number] Vancomycin Inj 1,000 MG In NS 250 / 250 Inj 250 ML @ 250 mls/hr IV.SIG Q12H MARY Rx#:[id number] Keppra 1000 mg/100 mL Premix 100 / 100 100 / 100 100 / 100 100 ML @ 400 mls/hr IV.SIG Q12H MARY Rx#:[id number] Oral 650 / 650 Output: Urine Amount (Catheter) 525 / 525 700 / 700 Indwelling Urethral Catheter 525 / 525 700 / 700 Wound Drainage 60 / 60 50 / 50 20 / 20 # 1 Right Neck 60 / 60 50 / 50 20 / 20 Other: # Voids 2 3 Weight On Admission 63.1 kg Narrative: General: Awake, following commands. Neurological: CNV and CNVII intact bilaterally. HEENT: Head/Face: Repaired lacerations of the bilateral neck and face, sutures in place , hemostatic. Intraorally, no lacerations appreciated, normal salivary flow. Dental caries present on left mandibular molars. ASHTYN drain in place on right neck with mild sanguinous output. Cardiovascular: Regular rate Pulmonary: Normal work of breathing on room air Abdomen: Soft, non-distended. Extremities: Warm, well perfused. - Urinary Catheter Management Indwelling Urethral Catheter Cath placed during this visit: yes Reason for continuing: Hourly intake/output Insertion date: 02/11/18 Results - Labs CBC & Chem 7: 02/13/18 03:11 02/13/18 03:11 Laboratory Results - last 24 hr 02/11/18 02/12/18 02/13/18 21:20 04:50 03:11 WBC 4.9 RBC 2.69 L Hgb 9.2 L Hct 26.3 L MCV 98.0 MCH 34.3 H MCHC 35.0 RDW 13.0 Plt Count 93 L MPV 9.5 Prelim Diff (Auto) Slide review pending Neut % (Auto) 66.3 Lymph % (Auto) 24.3 [place] % (Auto) 8.4 H Eos % (Auto) 0.6 Baso % (Auto) 0.4 Neut # (Auto) 3.2 Lymph # (Auto) 1.2 [place] # (Auto) 0.4 Eos # (Auto) 0.0 Baso # (Auto) 0.0 WBC Differential . . Diff Scan Auto diff confirmed Auto diff confirmed Differential Comment . Platelet Estimate Low L Platelet Morphology Normal Sodium Potassium Chloride Carbon Dioxide Anion Gap BUN Creatinine Estimated GFR Random Glucose Calcium Calcium Adj for Albumin Albumin Nasal Screen MRSA (PCR) Not detected 02/13/18 03:11 WBC RBC Hgb Hct MCV MCH MCHC RDW Plt Count MPV Prelim Diff (Auto) Neut % (Auto) Lymph % (Auto) [place] % (Auto) Eos % (Auto) Baso % (Auto) Neut # (Auto) Lymph # (Auto) [place] # (Auto) Eos # (Auto) Baso # (Auto) WBC Differential Diff Scan Differential Comment Platelet Estimate Platelet Morphology Sodium 143 Potassium 2.8 L* D Chloride 111 H Carbon Dioxide 23.2 Anion Gap 9 BUN 6 L Creatinine 0.60 Estimated GFR Greater than 89 Random Glucose 92 Calcium 7.4 L* Calcium Adj for Albumin 8.4 L Albumin 2.8 L Nasal Screen MRSA (PCR) - Imaging Impressions Chest X-Ray 02/13/18 06:00 CONCLUSION: 1. Status post extubation without acute abnormality. Assessment and Plan - Assessment (1) Dog bite of face Code(s): S01.85XA - Open bite of other part of head, initial encounter; W54.0XXA - Bitten by dog, initial encounter Status: Acute (2) Dog bite of multiple sites of scalp and neck Code(s): S01.05XA - Open bite of scalp, initial encounter; S11.95XA - Open bite of unspecified part of neck, initial encounter; W54.0XXA - Bitten by dog, initial encounter Status: Acute - Plan 29 something y/o F with a history of seizure disorder who suffered a dog bite injury with multiple lacerations to the bilateral neck and face. Patient is now s/p exploration of the right neck and primary closure of bilateral neck and face lacerations on 02/11/18. A ASHTYN drain was also placed in the right neck. Recommendations: - Bacitracin, Xeroform, gauze and Kerlix to bilateral neck, change dressing once a day. Upon discharge, bacitracin for total of 5 days to the bilateral neck. Do not submerge incision for at least two weeks. OK to shower but do not direct shower stream to neck. - Continue antibiotic prophylaxis, if allergy status can be confirmed and patient is not allergic to penicillins, would prefer to use Unasyn 3g IV q6h with transition to PO Augmentin at discharge. If PCN allergic, OK with clindamycin - ASHTYN drain to be managed by trauma surgery service - Pain management per primary service. - Patient to follow-up 1 week after discharge in office with me ([facility], [address] [place] [id number], [phone]) Thank you for this consultation. Please do not hesitate to contact me with any questions or concerns at [phone]. Tee Severino DDS, MD (2) Dog bite of multiple sites of scalp and neck Qualifiers: Encounter type: initial encounter Qualified Code(s): S01.05XA - Open bite of scalp, initial encounter; S11.95XA - Open bite of unspecified part of neck, initial encounter; W54.0XXA - Bitten by dog, initial encounter
[2018-02-13] MEDS: lamoTRIgine 100 MG Tablet PO SCH ×2 (08:52→20:27)
[2018-02-13] MEDS: Sodium Chloride 0.9% 2 ML Flush BID IV.FLUSH SCH ×2 (08:53→20:28)
[2018-02-13] MEDS: Senna/Docusate Sodium 8.6/50 MG Tablet PO SCH (08:53)
[2018-02-13] MEDS: levETIRAcetam 1000mg/100mL Inj 100 ML IV.SIG SCH ×2 (08:53→21:58)
[2018-02-13] MEDS ORDERED: Potassium Chloride 25 MEQ Effervescent Tablet PO ONE (09:49)
--- NOTE | 2018-02-13 11:44 | P.NPEVAL ---
Patient History - Record/History Review Reason for Referral: The patient is a 27 year old presumed right handed woman status post multitraumatic event from a dog bit to the neck and face. The patient experienced a seizure and the dog bit her. She is referred for baseline neurobehavioral status examination per trauma protocol to assess cognitive, behavioral and emotional aspects of the injury and to provide treatment recommendations. PMF - History History Provided By: Patient, Family Member - Medical History Medical History: Medical History (Last Reviewed 02/13/18 @ 10:53 by Kristan Landry Accounts Manager, WRITING TUTOR) Cholecystectomy planned Seizures - Tobacco History Second Hand Smoke Exposure: Yes Tobacco Use In Past 30 Days: Yes Smoking Status: Heavy tobacco smoker Tobacco Type: Cigarettes - Alcohol History How Often Do You Have a Drink Containing Alcohol: Never - Substance Use History Substance History: Past History - Substance Use Type Alcohol Status: Sustained Remission Route Used: By Mouth Reason for Use: Socialization Comment: Partyed - Immunization History Tetanus Immunization: Unsure Hx Influenza Vaccine This Season: No Medications Active Medications Al Hydroxide/Mg Hydroxide (Milk Of Magnclyde Liq) 30 ml PO Q12H PRN PRN Reason: Mild Constipation Albuterol (Duoneb Neb (Prn)) 1 ampul NEB Q2HR NEB PRN PRN Reason: SHORTNESS OF BREATH Albuterol (Duoneb Neb (Valdo)) 1 ampul NEB Q4HR NEB [facility] Last Admin: 02/13/18 08:06 Dose: 1 ampul Bacitracin (Baciguent Oint) 1 applicatio TOPICAL BID [facility] Last Admin: 02/13/18 08:53 Dose: 1 applicatio Bisacodyl (Dulcolax Supp) 10 mg RECTAL DAILY PRN PRN Reason: SEVERE CONSITIPATION Enoxaparin Sodium (Lovenox Inj) 40 mg SQ Q24H [facility] Last Admin: 02/12/18 21:05 Dose: 40 mg Ampicillin Sodium/Sulbactam Sodium 1,500 mg/ Sodium Chloride 100 mls @ 200 mls/ hr IV.SIG Q6H [facility] Last Infusion: 02/13/18 07:10 Dose: Infused Sodium Chloride (Ns Inj) 1,000 mls @ 50 mls/hr IV.CONT .Q20H [facility] Last Admin: 02/11/18 21:30 Dose: 100 mls/hr Levetiracetam (Keppra 1000 Mg/100 Ml Premix) 100 mls @ 400 mls/hr IV.SIG Q12H [facility] Last Infusion: 02/13/18 09:32 Dose: Infused Magnesium Sulfate 4 gm/ Sodium (Chloride) 100 mls @ 50 mls/hr IV.SIG UNSCH PRN PRN Reason: For Magnesium 0.9 - 1.1 mg/dL Magnesium Sulfate 2 gm/ Sodium (Chloride) 100 mls @ 50 mls/hr IV.SIG UNSCH PRN PRN Reason: For Magnesium 1.2 - 1.6 mg/dL Potassium Chloride (Kcl 40 Meq Premix Inj) 40 meq in 100 mls @ 25 mls/hr IV.SIG Q2H PRN PRN Reason: For Potassium 2.8 - 3.2 mEq/L Potassium Chloride (Kcl 20 Meq Premix Inj) 20 meq in 100 mls @ 50 mls/hr IV.SIG Q2H PRN PRN Reason: For Potassium 3.3 - 3.5 mEq/L Last Admin: 02/13/18 08:53 Dose: 50 mls/hr Potassium Chloride (Kcl 40 Meq Premix Inj) 40 meq in 100 mls @ 25 mls/hr IV.SIG UNSCH PRN PRN Reason: For Potassium 3.3 - 3.5 mEq/L Potassium Chloride (Kcl 20 Meq Premix Inj) 20 meq in 100 mls @ 50 mls/hr IV.SIG Q2H PRN PRN Reason: For Potassium 2.8 - 3.2 mEq/L Last Admin: 02/13/18 07:11 Dose: 50 mls/hr Potassium Phosphate 30 mmol/ (Sodium Chloride) 260 mls @ 42 mls/hr IV.SIG UNSCH PRN PRN Reason: SEE LABEL COMMENTS Sodium Phosphate 30 mmol/ (Sodium Chloride) 260 mls @ 42 mls/hr IV.SIG UNSCH PRN PRN Reason: For Phosphorus < 2.5 mg/dL Lactulose (Lactulose Liq) 30 ml PO DAILY PRN PRN Reason: SEVERE CONSITIPATION Lamotrigine (Lamictal) 100 mg PO BID [facility] Last Admin: 02/13/18 08:52 Dose: 100 mg Magnesium Oxide (Mag-Ox) 800 mg PO UNSCH PRN PRN Reason: For Magnesium 1.2 - 1.6 mg/dL Morphine Sulfate (Morphine Inj) 4 mg IV.PUSH Q3H PRN PRN Reason: BREAKTHROUGH PAIN Last Admin: 02/13/18 08:52 Dose: 4 mg Naloxone HCl (Narcan Inj) 0.4 mg IV.PUSH UNSCH PRN PRN Reason: SEE LABEL COMMENTS Ondansetron HCl (Zofran Inj) 4 mg IV.PUSH Q6H PRN PRN Reason: NAUSEA OR VOMITING Oxycodone HCl (Roxicodone Intensol Liq) 5 mg PO Q4H PRN PRN Reason: PAIN SCALE 3 TO 5 Oxycodone HCl (Roxicodone Intensol Liq) 10 mg PO Q4H PRN PRN Reason: PAIN SCALE 6 TO 10 Pantoprazole Sodium (Protonix Inj) 40 mg IV.PUSH Q24H [facility] Last Admin: 02/12/18 20:59 Dose: 40 mg Potassium Bicarb/Potassium Chloride (K-Lyte Cl Eff) 50 meq PO UNSCH PRN PRN Reason: For Potassium 3.3 - 3.5 mEq/L Potassium Phosphate (K-Phos Original) 2,000 mg PO UNSCH PRN PRN Reason: SEE LABEL COMMENTS Potassium Phosphate (K-Phos Original) 2,000 mg PO Q4H PRN PRN Reason: Phosphorus Less Than 2.5 mg/dL Senna/Docusate Sodium (Hanna-Colace) 1 tab PO BID [facility] Last Admin: 02/13/18 08:53 Dose: 1 tab Sennosides (Senokot) 17.2 mg PO Q12H PRN PRN Reason: Moderate Constipation Sodium Chloride (Ns Flush) 2 ml IV.FLUSH BID [facility] Last Admin: 02/13/18 08:53 Dose: Not Given Sodium Chloride (Ns Flush) 2 ml IV.FLUSH PRN PRN PRN Reason: FLUSH AFTER USING IV ACCESS Mental Status Assessment - Mental Status Orientation: oriented to: Self, Place, Time, Situation Mental Status: Variable: Language/interactions, Impaired: Thought processing Absent: Hallucinations, Delusions Adjustment/Coping Assessment - Observation In terms of emotional functioning, the patient demonstrated challenges. This patient demonstrated no signs of agitation, impulsivity or disinhibition, nor was there remarkable evidence of a formal thought disorder or psychosis. There was questionable evidence of depression or anxiety. Thought content was free from suicidal, homicidal or paranoid ideation, and thought processes were logical but bradyphrenic. The patients mood was guarded, and her affect was flat. The patient appears to possess questionable insight and awareness into their situation and within the limits of this brief evaluation, questionable judgment. - Goals/Team Members LTG Status: Deferred STG Status: Deferred Team Members: Neuropsychologist Behavior - Behavior Treatment Engagement: Minimal - Observation Behaviorally, the patient demonstrated no signs of agitation, impulsivity or disinhibition. There was no remarkable evidence of a formal thought disorder or psychosis. 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 Disinhibition Score: 14.00 Aggression Score: 14.00 Lability Score: 14.00 Agitated Behavior Total Score: 14 Maximizing Acute Care Outcome: It is recommended that the patient be monitored for emergent behavioral impulsivity as the medical condition evolves. This patients neuropathological challenges may limit rehabilitation potential going forward, and these challenges will require specialized therapeutic skills to maximize outcome. Additionally, the patients family is experiencing ongoing issues of adjustment given the traumatic nature of the injury, and they may benefit from ongoing psychological assistance. At this point in the recovery process, the patient does have cognitive capacity as the patient is able to understand a situation and its likely consequences, and she is able to manipulate information rationally. Cognitive capacity will be assessed throughout the recovery process. - Discharge Planning Anticipated Problems: Ongoing areas of concern will include behavioral impulsivity, lack of insight and judgment, which is expected to improve with time and treatment. Treatment Plan: This clinician will continue to follow with you throughout the course of this patients critical care treatment, and I will be available to meet with the patients family/support system to facilitate their understanding and the ongoing care of their family member. The goals of neuropsychological intervention shall be both educational and supportive to the family/support system as is deemed clinically appropriate. Thank you for the opportunity to assist in this patients care. Neeraj Sheldon, Ph.D., ABPP Board Certified in Clinical Neuropsychology [place] [employer] [place] Licensed Psychologist #[id number]
--- NOTE | 2018-02-13 11:54 | P.PNCC ---
Subjective Brief History: A patient with multiple dog bites post seizure. The patient will be immediately taken to the operating room due to the depth and bleeding of the right side of the neck injuries. Plastic surgery has been consulted to come up there and help with repair of this. I do not believe initially the patient has any carotid injury, but probably has some branches of the jugular vein injured and I do not know what else. After all well and done, the patient will undergo a CT scan of the head and a CT of the neck soft tissues to evaluate this further. Patient was taken to the operating room and underwent complex exploration of the right neck with exploration of carotid artery and ligation of various branches of same and jugular vein Noted was distraction of the muscular and nerve structures in the posterior triangle of the neck Patient is now in the ICU intubated ventilated and sedated Neurology was consulted for seizures and expert help from oromaxillofacial plastic surgery is greatly appreciated 24 Hour Review/Hospital Course: 02/12/2018 Sedation stopped patient is awake alert Successfully extubated Bilateral breath sounds good pulmonary function and hemodynamically stable Right pre-sternocleidomastoid incision is clean and dry Plastic surgery work appears to be very nice and clean DC ASHTYN Neurologic injuries to the right brachial plexus and surrounding structures will need to be assessed once patient is fully awake Neurology consult is greatly appreciated Seizure workup in progress Patient remains on Keppra and Lamictal and any other medications have been be deemed necessary by neurology We will start on diet 02/13/2017 Patient is awake alert and oriented but not answering too many questions States her throat hurts Incisions in the neck are clean and dry and this is a beautiful work by Dr. Severino. Bilateral carotid pulses ASHTYN drainage is minimal and I will remove the drain Patient should remain on Unasyn for another few days Greatly appreciate neurology and neuro behavioral neuropsychology input and management of this patient She is to transfer to floor today Noted to add from surgical point at this time Objective Vital Signs / I&O: Vital Signs 02/12/18 12:00 02/12/18 12:15 02/12/18 12:30 Temperature 98 F Pulse Rate 88 88 96 H Respiratory Rate 13 12 17 Blood Pressure 99/56 L 110/58 L Pulse Oximetry 99 100 02/12/18 13:00 02/12/18 14:00 02/12/18 14:30 Temperature Pulse Rate 105 H 110 H 118 H Respiratory Rate 24 19 28 H Blood Pressure 106/59 L 105/58 L 102/82 Pulse Oximetry 100 100 100 02/12/18 15:00 02/12/18 15:30 02/12/18 16:00 Temperature Pulse Rate 99 H 98 H 100 H Respiratory Rate 22 20 Blood Pressure 93/77 L 106/59 L Pulse Oximetry 100 100 02/12/18 16:04 02/12/18 16:27 02/12/18 16:48 Temperature Pulse Rate 121 H 100 H 100 H Respiratory Rate 38 H 24 18 Blood Pressure 111/73 Pulse Oximetry 97 97 02/12/18 17:00 02/12/18 18:00 02/12/18 19:00 Temperature Pulse Rate 116 H 103 H 108 H Respiratory Rate 35 H 27 H 7 L Blood Pressure 112/70 112/60 121/59 L Pulse Oximetry 99 97 95 02/12/18 20:00 02/12/18 21:00 02/12/18 21:04 Temperature 98.3 F Pulse Rate 106 H 102 H 98 H Respiratory Rate 16 21 20 Blood Pressure 118/65 108/63 Pulse Oximetry 99 97 02/12/18 22:00 02/12/18 23:00 02/12/18 23:50 Temperature Pulse Rate 111 H 111 H 101 H Respiratory Rate 18 27 H 16 Blood Pressure 101/60 100/57 L Pulse Oximetry 96 96 02/13/18 00:00 02/13/18 01:00 02/13/18 02:00 Temperature 99.4 F Pulse Rate 98 H 97 H 91 H Respiratory Rate 23 21 15 Blood Pressure 106/63 107/66 107/62 Pulse Oximetry 97 98 93 L 02/13/18 03:00 02/13/18 04:00 02/13/18 04:03 Temperature 99.3 F Pulse Rate 112 H 91 H 83 Respiratory Rate 28 H 20 19 Blood Pressure 111/70 107/68 Pulse Oximetry 96 98 02/13/18 05:00 02/13/18 06:00 02/13/18 07:00 Temperature Pulse Rate 86 93 H 89 Respiratory Rate 23 17 12 Blood Pressure 102/68 104/62 Pulse Oximetry 98 97 96 02/13/18 08:00 02/13/18 08:09 02/13/18 09:00 Temperature 99 F Pulse Rate 87 85 88 Respiratory Rate 13 10 L 16 Blood Pressure 101/62 101/60 Pulse Oximetry 97 98 98 02/13/18 10:00 02/13/18 11:50 Temperature Pulse Rate 100 H 82 Respiratory Rate 31 H 22 Blood Pressure 102/60 Pulse Oximetry 99 Intake & Output 02/12/18 02/13/18 02/13/18 18:59 06:59 18:59 Intake Total 1154 / 1154 300 / 300 300 / 300 Output Total 750 / 750 20 / 20 Balance 404 / 404 280 / 280 300 / 300 Weight 63 kg 64.5 kg Intake: IV 504 / 504 300 / 300 300 / 300 Unasyn Inj 1,500 MG In NS Inj 300 / 300 200 / 200 100 / 100 100 ML @ 200 mls/hr IV.SIG Q6H [facility] Rx#:[id number] Cleocin Inj 600 MG In NS Inj 104 / 104 100 ML @ 100 mls/hr IV.SIG Q8H [facility] Rx#:[id number] KCl 20 mEq Premix Inj 20 meq In 100 / 100 100 ml @ 50 mls/hr IV.SIG Q2H PRN Rx#:[id number] Keppra 1000 mg/100 mL Premix 100 / 100 100 / 100 100 / 100 100 ML @ 400 mls/hr IV.SIG Q12H [facility] Rx#:[id number] Oral 650 / 650 Output: Urine Amount (Catheter) 700 / 700 Indwelling Urethral Catheter 700 / 700 Wound Drainage 50 / 50 20 / 20 # 1 Right Neck 50 / 50 20 / 20 Other: # Voids 2 3 Result Diagrams: 02/13/18 03:11 02/13/18 03:11 Imaging: Impressions Chest X-Ray 02/13/18 06:00 CONCLUSION: 1. Status post extubation without acute abnormality. Disinhibition Score: 14.00 Aggression Score: 14.00 Lability Score: 14.00 Agitated Behavior Total Score: 14
--- NOTE | 2018-02-13 15:51 | P.DIET ---
Nutritional Evaluation Type of nutrition evaluation: initial Nutrition consult regarding: Diet Evaluation Nutrition screening: Poor PO Intake Screening comments: 02/13 [facility] for Poor PO intake Trauma alert Subjective Subjective Comments: Pt stated feels pain in neck area when she eats. Objective - Diagnosis trauma alert, dog bite R neck and L face - Objective Body Mass Index: 23.0 % IBW: 109 (IBW = 130lb) Body Weight Used for Calculations: Actual (64.5kg) Energy Needs - Lower Range (kCal/kg): 28 Energy Needs - Upper Range (kCal/kg): 32 Lower Limit kCal/kg (kCals): 1,806 Upper Limit kCal/kg (kCals): 2,064 Lower Limit Protein Factor (Grams per Kg): 1.2 Upper Limit Protein Factor (Grams per Kg): 1.5 Lower Protein Needs (Protein): 77 Upper Protein Needs (Protein): 97 Dietitian Reviewed in Medical Record: Current diet, Curent medications, Intake & Output, Labs, Medical history Diet Order: pureed, thin liquid Oral Diet Intake Amount: Poor <50% Objective Comments: PMH: seizures Labs: K+ 2.8, BUN 6, Ca+ 7.4 Assessment Assessment: Pt currently at nutritional risk r/t reported poor PO intake. Pt s/p trauma to throat and face from dog attack. Pts mom present during RD visit, she mentioned that pt is able to chew the kennedy crackers and swallow the applesauce during ST PO trials. Pt stated that she swallows fine but her neck wounds still hurt when she does. RD to recommend Ensure Enlive TID for pt for additional nutrition. Spoke w/ STEPHON Cho about pts diet status and swallowing, per RN pt able to swallow but will require additional swallowing reassessments. Continue to monitor PO/supplement intake and tolerance. Labs reviewed, dietitian following. Recommendations: 1. RD to recommend Ensure Enlive TID for pt for additional nutrition 2. Continue to monitor PO/supplement intake and tolerance 3. Dietitian following Dietitian to Monitor: Lab values, Supplement acceptance, Intake & Output, Diet tolerance, Weight change, PO Intake, Wound/skin status, Swallow recommendations , Medical course
[2018-02-13] MEDS: Sod Chloride 0.9% Inj 1,000 ML IV.CONT SCH (16:11)
[2018-02-13] MEDS: Enoxaparin Inj 40 MG/0.4 ML Syringe SQ SCH (20:27)
[2018-02-13] MEDS: Pantoprazole Inj 40 MG Vial IV.PUSH SCH (20:28)
[2018-02-14] MEDS: Ampicillin/Sulbactam Inj 1,500 MG IV.SIG SCH ×8 (01:51→18:21)
[2018-02-14 04:12] LABS: Baso % (Auto) 0.5 % (0.0-2.0); Eos # (Auto) 0.1 th/mm3 (0.0-0.4); Eos % (Auto) 1.7 % (0.0-4.0); Hematocrit 25.3 % (35.0-46.0); Hemoglobin 8.7 gm/dL (11.6-15.3); Lymph # (Auto) 0.8 th/mm3 (1.0-4.8); Lymph % (Auto) 22.4 % (9.0-44.0); Mean Corpuscular HGB Conc 34.4 % (32.0-36.0); Mean Corpuscular Volume 98.9 fL (80.0-100.0); Mean Platelet Volume 8.6 fL (7.0-11.0); Mono # (Auto) 0.3 th/mm3 (0.0-0.9); Mono % (Auto) 8.5 % (0.0-8.0); Neut # (Auto) 2.4 th/mm3 (1.8-7.7); Neut % (Auto) 66.9 % (16.0-70.0); Platelet Count 107 th/mm3 (150-450); Red Blood Count 2.56 mil/mm3 (4.00-5.30); Red Cell Distribution Width 12.3 % (11.6-17.2); White Blood Count 3.6 th/mm3 (4.0-11.0)
[2018-02-14 04:33] LABS: Anion Gap 7 meq/L (5-15); Blood Urea Nitrogen 3 mg/dL (7-18); Calcium 7.8 mg/dL (8.5-10.1); Carbon Dioxide 24.6 meq/L (21.0-32.0); Chloride 111 meq/L (98-107); Glomerular Filtration Rate Greater Than 89 mL/min (>89); Glucose,Random 98 mg/dL (74-106); Potassium 3.7 meq/L (3.5-5.1); Sodium 143 meq/L (136-145)
--- NOTE | 2018-02-14 07:04 | P.PN ---
Subjective Interval history: Elevated temp overnight to 100. ASHTYN drain removed yesterday. Patient using incentive spirometer at bedside. Physical Exam Vital signs: Vital Signs 02/13/18 08:00 02/13/18 08:09 02/13/18 09:00 Temperature 99 F Pulse Rate 87 85 88 Respiratory Rate 13 10 L 16 Blood Pressure 101/62 101/60 Pulse Oximetry 97 98 98 02/13/18 10:00 02/13/18 11:00 02/13/18 11:50 Temperature Pulse Rate 100 H 99 H 82 Respiratory Rate 31 H 19 22 Blood Pressure 102/60 106/66 Pulse Oximetry 99 100 02/13/18 12:00 02/13/18 13:00 02/13/18 14:00 Temperature 98.9 F Pulse Rate 92 H 94 H 128 H Respiratory Rate 18 16 23 Blood Pressure 114/64 105/61 114/69 Pulse Oximetry 87 L 98 100 02/13/18 16:48 02/13/18 20:00 02/13/18 23:58 Temperature 98.3 F 99.8 F H Pulse Rate 111 H 95 H 89 Respiratory Rate 20 20 17 Blood Pressure 114/60 109/57 L Pulse Oximetry 100 98 02/14/18 00:00 02/14/18 03:57 02/14/18 04:00 Temperature 100.4 F H 100 F H Pulse Rate 89 101 H 90 Respiratory Rate 18 18 17 Blood Pressure 107/60 103/62 Pulse Oximetry 97 95 94 L Intake & Output 02/13/18 02/14/18 02/14/18 18:59 06:59 18:59 Intake Total 1220 / 1220 480 / 480 Balance 1220 / 1220 480 / 480 Weight 66.1 kg Intake: IV 500 / 500 Unasyn Inj 1,500 MG In NS Inj 300 / 300 100 ML @ 200 mls/hr IV.SIG Q6H [facility] Rx#:[id number] KCl 20 mEq Premix Inj 20 meq In 100 / 100 100 ml @ 50 mls/hr IV.SIG Q2H PRN Rx#:[id number] Keppra 1000 mg/100 mL Premix 100 / 100 100 ML @ 400 mls/hr IV.SIG Q12H [facility] Rx#:[id number] Oral 720 / 720 480 / 480 Other: # Voids 1 3 Narrative: General: Awake, following commands. Neurological: CNV and CNVII intact bilaterally. HEENT: Head/Face: Repaired lacerations of the bilateral neck and face, sutures in place , hemostatic, no drainage appreciated from neck wounds. Intraorally, no lacerations appreciated, normal salivary flow. Dental caries present on left mandibular molars. Cardiovascular: Regular rate Pulmonary: Normal work of breathing on room air Abdomen: Soft, non-distended. Extremities: Warm, well perfused. - Urinary Catheter Management Indwelling Urethral Catheter Cath placed during this visit: yes Reason for continuing: Hourly intake/output Insertion date: 02/11/18 Results - Labs CBC & Chem 7: 02/14/18 03:52 02/14/18 03:52 Laboratory Results - last 24 hr 02/14/18 02/14/18 03:52 03:52 WBC 3.6 L RBC 2.56 L Hgb 8.7 L Hct 25.3 L MCV 98.9 MCH 34.0 MCHC 34.4 RDW 12.3 Plt Count 107 L MPV 8.6 Neut % (Auto) 66.9 Lymph % (Auto) 22.4 [place] % (Auto) 8.5 H Eos % (Auto) 1.7 Baso % (Auto) 0.5 Neut # (Auto) 2.4 Lymph # (Auto) 0.8 L [place] # (Auto) 0.3 Eos # (Auto) 0.1 Baso # (Auto) 0.0 WBC Differential . Differential Comment Auto diff final Sodium 143 Potassium 3.7 D Chloride 111 H Carbon Dioxide 24.6 Anion Gap 7 BUN 3 L Creatinine 0.51 Estimated GFR Greater than 89 Random Glucose 98 Calcium 7.8 L Assessment and Plan - Assessment (1) Dog bite of face Code(s): S01.85XA - Open bite of other part of head, initial encounter; W54.0XXA - Bitten by dog, initial encounter Status: Acute (2) Dog bite of multiple sites of scalp and neck Code(s): S01.05XA - Open bite of scalp, initial encounter; S11.95XA - Open bite of unspecified part of neck, initial encounter; W54.0XXA - Bitten by dog, initial encounter Status: Acute - Plan 29 something y/o F with a history of seizure disorder who suffered a dog bite injury with multiple lacerations to the bilateral neck and face. Patient is now s/p exploration of the right neck and primary closure of bilateral neck and face lacerations on 02/11/18. A ASHTYN drain was also placed in the right neck which has been subsequently removed. Recommendations: - OK to use bacitracin to the bilateral neck for 3 more days. No need for Xeroform or gauze coverage. Patient may leave lacerations open to air. Do not submerge incision for at least two weeks. OK to shower but do not direct shower stream to neck. - Continue antibiotic prophylaxis with Unasyn 3g IV q6h with transition to PO Augmentin 875-125mg bid at discharge for a total antibiotic course of 7 days. - Pain management per primary service. - Patient to follow-up 1 week after discharge [facility] with [facility] [place] [place] [address], ) Thank you for this consultation. Please do not hesitate to contact me with any questions or concerns at [phone]. Tee Severino DDS, (2) Dog bite of multiple sites of scalp and neck Qualifiers: Encounter type: initial encounter Qualified Code(s): S01.05XA - Open bite of scalp, initial encounter; S11.95XA - Open bite of unspecified part of neck, initial encounter; W54.0XXA - Bitten by dog, initial encounter
--- NOTE | 2018-02-14 08:15 | P.PNNPSY ---
- Behavior Intact: Coping/acceptance, Cooperative with treatment, Motivation, Frustration tolerance/oppositional, Impulsive/agitated - Cognitive Intact: Cognitive, Attention/concentration, Confused/orientation, Insight/ awareness, Judgment/problem solving, Memory - Psychosocial Intact: Psychosocial, Family/other adjustment, Realistic expectation - Progress Notes/Response to Treatment Contents of Sessions: Adjustment, Level of consciousness Time with Patient: 15 minutes Premorbid Psychological Status: Premorbid Cognitive, Emotional and Behavioral Status: Tenuous. The patient has high school years of education and a sporadic work history prior to this injury. The patient has no known prior psychiatric difficulties, as described above. Substance abuse history is unclear. Behavioral Reactions of Patient and Family/Support System: Stable. The patient s family is experiencing ongoing issues of adjustment given the nature of the injury, and this aspect of recovery will require ongoing monitoring. Emotional/Behavioral Status of Patient and Family/Support System: Stable. Pertinent issues, if appropriate to this patients clinical care, are described in detail above. Maximizing Acute Care Outcome: It is recommended that the patient be monitored for emergent behavioral impulsivity as the medical condition evolves. This patients neuropathological challenges may limit rehabilitation potential going forward, and these challenges will require specialized therapeutic skills to maximize outcome. Additionally, the patients family is experiencing ongoing issues of adjustment given the traumatic nature of the injury, and they may benefit from ongoing psychological assistance. At this point in the recovery process, the patient does have cognitive capacity as the patient is able to understand a situation and its likely consequences, and she is able to manipulate information rationally. Cognitive capacity will be assessed throughout the recovery process. Anticipated Problems: Ongoing areas of concern will include behavioral impulsivity, lack of insight and judgment, which is expected to improve with time and treatment. Treatment Plan: This clinician will continue to follow with you throughout the course of this patients acute care treatment, and I will be available to meet with the patient s family/support system to facilitate their understanding and the ongoing care of their family member. The goals of neuropsychological intervention shall be both educational and supportive to the family/support system as is deemed clinically appropriate. 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 Progress Note Narrative: PTD 3. The patient is neurobehaviorally stable, with no agitation/ restlessness. She is calm and cooperative. I will follow.
[2018-02-14] MEDS: levETIRAcetam 1000mg/100mL Inj 100 ML IV.SIG SCH ×2 (09:27→20:00)
[2018-02-14] MEDS: Sertraline 50 MG Tablet PO SCH (09:28)
[2018-02-14] MEDS: lamoTRIgine 100 MG Tablet PO SCH ×2 (09:28→20:00)
[2018-02-14] MEDS: Polyethylene Glycol 3350 17 GM Packet PO SCH (09:28)
[2018-02-14] MEDS: Sodium Chloride 0.9% 2 ML Flush BID IV.FLUSH SCH ×2 (09:29→20:01)
[2018-02-14] MEDS: Morphine Inj 4 MG/ML Vial IV.PUSH PRN ×2 (12:14→15:57)
[2018-02-14] MEDS: Sod Chloride 0.9% Inj 1,000 ML IV.CONT SCH ×3 (12:15→19:56)
--- NOTE | 2018-02-14 12:33 | P.PN ---
Subjective Interval history: T-max 100.4 Pain controlled Mother requesting MRI head, defer to neurology Physical Exam Vital signs: Vital Signs 02/13/18 13:00 02/13/18 14:00 02/13/18 16:48 Temperature 98.3 F Pulse Rate 94 H 128 H 111 H Respiratory Rate 16 23 20 Blood Pressure 105/61 114/69 114/60 Pulse Oximetry 98 100 100 02/13/18 20:00 02/13/18 23:58 02/14/18 00:00 Temperature 99.8 F H 100.4 F H Pulse Rate 95 H 89 89 Respiratory Rate 20 17 18 Blood Pressure 109/57 L 107/60 Pulse Oximetry 98 97 02/14/18 03:57 02/14/18 04:00 02/14/18 07:50 Temperature 100 F H Pulse Rate 101 H 90 100 H Respiratory Rate 18 17 18 Blood Pressure 103/62 Pulse Oximetry 95 94 L 02/14/18 08:00 Temperature 98.2 F Pulse Rate 75 Respiratory Rate 17 Blood Pressure 111/57 L Pulse Oximetry 92 L Intake & Output 02/13/18 02/14/18 02/14/18 18:59 06:59 18:59 Intake Total 1220 / 1220 480 / 480 300 / 300 Balance 1220 / 1220 480 / 480 300 / 300 Weight 66.1 kg Intake: IV 500 / 500 300 / 300 Unasyn Inj 1,500 MG In NS Inj 300 / 300 200 / 200 100 ML @ 200 mls/hr IV.SIG Q6H MARY Rx#:[id number] KCl 20 mEq Premix Inj 20 meq In 100 / 100 100 ml @ 50 mls/hr IV.SIG Q2H PRN Rx#:[id number] Keppra 1000 mg/100 mL Premix 100 / 100 100 / 100 100 ML @ 400 mls/hr IV.SIG Q12H MARY Rx#:[id number] Oral 720 / 720 480 / 480 Other: # Voids 1 3 Date of Last Bowel Movement 02/11/18 Narrative: GENERAL: 27-year-old well-nourished, well developed female lying in bed in no acute distress. SKIN: Warm and dry. Left facial and bilateral neck edema noted. HEAD: Normocephalic. EYES: Pupils equal and round. Left sub-conjunctival hemorrhage noted. ENT: No nasal bleeding or discharge. Mucous membranes pink and moist. NECK: Trachea midline. No JVD. Bilateral neck sutures well approximated, no erythema noted. CARDIOVASCULAR: Regular rate and rhythm. RESPIRATORY: No accessory muscle use. Lungs clear to auscultation bilaterally. GASTROINTESTINAL: Abdomen soft, non-tender, nondistended. + BS. MUSCULOSKELETAL: Extremities without cyanosis, or edema. MAEW, + perfused NEUROLOGICAL: Awake and alert. Normal speech. - Urinary Catheter Management Indwelling Urethral Catheter Cath placed during this visit: yes, but has since been removed by the nurse Reason for continuing: Hourly intake/output Insertion date: 02/11/18 Removal date: 02/12/18 Results - Labs CBC & Chem 7: 02/16/18 04:18 02/17/18 07:24 Laboratory Results - last 24 hr 02/14/18 02/14/18 03:52 03:52 WBC 3.6 L RBC 2.56 L Hgb 8.7 L Hct 25.3 L MCV 98.9 MCH 34.0 MCHC 34.4 RDW 12.3 Plt Count 107 L MPV 8.6 Neut % (Auto) 66.9 Lymph % (Auto) 22.4 [place] % (Auto) 8.5 H Eos % (Auto) 1.7 Baso % (Auto) 0.5 Neut # (Auto) 2.4 Lymph # (Auto) 0.8 L [place] # (Auto) 0.3 Eos # (Auto) 0.1 Baso # (Auto) 0.0 WBC Differential . Differential Comment Auto diff final Sodium 143 Potassium 3.7 D Chloride 111 H Carbon Dioxide 24.6 Anion Gap 7 BUN 3 L Creatinine 0.51 Estimated GFR Greater than 89 Random Glucose 98 Calcium 7.8 L Assessment and Plan - Plan [place]: Reportedly had a seizure at home in the presence of several pit bulls. One of the pit bulls became excited and bit the patient on the right face and left neck. Initially the patient was awake and alert complaining of SOB then she began to deteriorate, become lethargic and gurgling blood so she was intubated by EMS. INJURIES: Puncture wounds/dog bites BILAT neck ?Aspiration PMHx: Epilepsy Puncture wounds/dog bites BILAT neck, ?Aspiration 02/11: Intubated 02/11: Exploration of the right neck with ligation of various branches of the jugular vein and irrigation of the neck tissues with drain placement. 02/11: Primary closure of multiple bilateral face and neck lacerations (>10cm) 02/12: Extubated Supportive care Wound care: Apply Bacitracin BID to neck wounds and leave [employer] Continue IV Unasyn until tomorrow Speech therapy consulted for swallow evaluation Low-grade temps Pain control Bowel regimen OOB- PT and OT ordered Lovenox Epilepsy Neurology consulted CT head shows no acute abnormalities Seizure precautions IV Keppra Home Lamictal, Zonegran resumed Neuropsychology consulted RN to update Tegretol dose EEG shows encephalopathy, no seizure activity MRI per neurology Plan of care discussed with patient and her mother at bedside. Collaborating Trauma surgeon agrees with plan. Case management consulted to assist with discharge planning. - Attending Attestation The exam, history, and the medical decision-making described in the above note were completed with the assistance of the mid-level provider. I reviewed and agree with the findings presented. I attest that I had a [id number] encounter with the patient on the same day, and personally performed and documented my assessment and findings in the medical record. s/p dog bite to neck hx seizure disorder pt GCS15 A/A/Ox3 d/w family, check with neurology about MRI fu neurology recs wounds clean, no signs of infection, cont ABX
[2018-02-14] MEDS: Pantoprazole Inj 40 MG Vial IV.PUSH SCH (20:00)
[2018-02-14] MEDS: Enoxaparin Inj 40 MG/0.4 ML Syringe SQ SCH (20:01)
[2018-02-15] MEDS: Ampicillin/Sulbactam Inj 1,500 MG IV.SIG SCH ×4 (00:33→08:52)
[2018-02-15] MEDS: Sod Chloride 0.9% Inj 1,000 ML IV.CONT SCH (05:56)
--- NOTE | 2018-02-15 07:38 | P.PN ---
Subjective Interval history: Patient resting comfortably in bed this morning. Afebrile overnight. Physical Exam Vital signs: Vital Signs 02/14/18 07:50 02/14/18 08:00 02/14/18 12:00 Temperature 98.2 F 98.2 F Pulse Rate 100 H 75 91 H Respiratory Rate 18 17 19 Blood Pressure 111/57 L 108/69 Pulse Oximetry 92 L 97 02/14/18 13:36 02/14/18 16:43 02/14/18 20:00 Temperature 98.6 F 98.5 F Pulse Rate 91 H 94 H 107 H Respiratory Rate 18 19 20 Blood Pressure 116/65 115/66 Pulse Oximetry 90 L 100 02/14/18 20:18 02/14/18 21:11 02/15/18 00:00 Temperature 98.1 F Pulse Rate 107 H 97 H Respiratory Rate 16 18 18 Blood Pressure 111/64 Pulse Oximetry 95 96 02/15/18 01:07 Temperature Pulse Rate Respiratory Rate 18 Blood Pressure Pulse Oximetry Intake & Output 02/14/18 02/15/18 02/15/18 18:59 06:59 18:59 Intake Total 500 / 500 1300 / 1300 Balance 500 / 500 1300 / 1300 Weight 64 kg Intake: IV 500 / 500 1300 / 1300 NS Inj 1,000 ML @ 50 mls/hr IV. 1000 / 1000 CONT .Q20H MARY Rx#:[id number] Unasyn Inj 1,500 MG In NS Inj 300 / 300 200 / 200 100 ML @ 200 mls/hr IV.SIG Q6H MARY Rx#:[id number] Keppra 1000 mg/100 mL Premix 200 / 200 100 / 100 100 ML @ 400 mls/hr IV.SIG Q12H MARY Rx#:[id number] Other: # Voids 1 Narrative: General: Awake, following commands. Neurological: CNV and CNVII intact bilaterally. HEENT: Head/Face: Repaired lacerations of the bilateral neck and face, sutures in place , hemostatic, no drainage appreciated from neck wounds. Cardiovascular: Regular rate Pulmonary: Normal work of breathing on room air Abdomen: Soft, non-distended. Extremities: Warm, well perfused. - Urinary Catheter Management Indwelling Urethral Catheter Cath placed during this visit: yes Reason for continuing: Hourly intake/output Insertion date: 02/11/18 Results - Labs CBC & Chem 7: 02/14/18 03:52 02/14/18 03:52 Assessment and Plan - Assessment (1) Dog bite of face Code(s): S01.85XA - Open bite of other part of head, initial encounter; W54.0XXA - Bitten by dog, initial encounter Status: Acute (2) Dog bite of multiple sites of scalp and neck Code(s): S01.05XA - Open bite of scalp, initial encounter; S11.95XA - Open bite of unspecified part of neck, initial encounter; W54.0XXA - Bitten by dog, initial encounter Status: Acute - Plan 27 y/o F with a history of seizure disorder who suffered a dog bite injury with multiple lacerations to the bilateral neck and face. Patient is now s/p exploration of the right neck and primary closure of bilateral neck and face lacerations on 02/11/18. A ASHTYN drain was also placed in the right neck which has been subsequently removed. Recommendations: - OK to use bacitracin to the bilateral neck for 2 more days. No need for Xeroform or gauze coverage. Patient may leave lacerations open to air. Do not submerge incision for at least two weeks. OK to shower but do not direct shower stream to neck. - Continue antibiotic prophylaxis with Unasyn 3g IV q6h with transition to PO Augmentin 875-125mg bid at discharge for a total antibiotic course of 7 days. - Pain management per primary service. - Patient to follow-up 1 week after discharge in office with me ([facility], [address] [place] [id number], [phone]) Thank you for this consultation. Please do not hesitate to contact me with any questions or concerns at [phone]. Tee Severino DDS, (2) Dog bite of multiple sites of scalp and neck Qualifiers: Encounter type: initial encounter Qualified Code(s): S01.05XA - Open bite of scalp, initial encounter; S11.95XA - Open bite of unspecified part of neck, initial encounter; W54.0XXA - Bitten by dog, initial encounter
[2018-02-15] MEDS: Sertraline 50 MG Tablet PO SCH (08:49)
[2018-02-15] MEDS: lamoTRIgine 100 MG Tablet PO SCH ×4 (08:49→20:47)
[2018-02-15] MEDS: levETIRAcetam 1000mg/100mL Inj 100 ML IV.SIG SCH ×2 (08:50→20:39)
[2018-02-15] MEDS: Polyethylene Glycol 3350 17 GM Packet PO SCH (08:50)
[2018-02-15] MEDS: Sodium Chloride 0.9% 2 ML Flush BID IV.FLUSH SCH ×2 (08:52→20:40)
--- NOTE | 2018-02-15 09:56 | MR ---
EXAM DATE: 02/15/2018 9:46 AM EST AGE/SEX: 27 years / Female INDICATIONS: Seizures. CLINICAL DATA: This is the patient's initial encounter. Patient reports that signs and symptoms have been present for 4 - 6 days and indicates a pain score of 0/10. MEDICAL/SURGICAL HISTORY: None. Cholecystectomy. COMPARISON: [facility] [place]/O [place], 02/11/2018. . TECHNIQUE: Multiplanar, multisequence examination of the brain was performed without contrast. FINDINGS: Cerebrum: The ventricles are normal for age. No evidence of midline shift, mass lesion, hemorrhage or acute cortical infarction. No extraaxial fluid collections are seen. The pituitary gland and sup rasellar cistern are normal in configuration. White Matter: Small subcortical T2 hyperintensities with restricted diffusion are identified in the right centrum semiovale and subcortical white matter of both frontal and parietal lobes. The white ma tter tracts within the left cerebral hemisphere and osteophytes are unremarkable. Posterior Fossa: The cerebellum and brainstem are intact. The 4th ventricle is midline. The cerebel lopontine angle is unremarkable. The cerebellar tonsils are normal in position. Diffusion Imaging: No other focal areas of restricted diffusion are seen. Extracranial: The visualized portions of the orbits and paranasal sinuses are unremarkable. CONCLUSION: 1. Right sided deep white matter and subcortical white matter T2 hyperintensities with restricted di ffusion. These may represent small embolic infarcts or operating inflammatory/infectious disease. 2. No evidence of significant mass effect, shift or hemorrhage. 3. Otherwise normal exam. Electronically signed by: Zana Sheth MD Board Certified Radiologist 02/15/2018 9:55 AM EST
[2018-02-15] MEDS: Morphine Inj 4 MG/ML Vial IV.PUSH PRN ×2 (10:07→20:47)
[2018-02-15] MEDS: carBAMazepine 100 MG Chewable Tablets PO SCH ×2 (10:27→20:39)
--- NOTE | 2018-02-15 11:46 | P.PNNEU ---
Subjective Subjective Comments: patient has right arm weakness. Active Medications: Active Medications Al Hydroxide/Mg Hydroxide (Milk Of Magnesia Liq) 30 ml PO Q12H PRN PRN Reason: Mild Constipation Albuterol (Duoneb Neb (Prn)) 1 ampul NEB Q2HR NEB PRN PRN Reason: SHORTNESS OF BREATH Albuterol (Duoneb Neb (Valdo)) 1 ampul NEB Q6HR WHILE AWAKE NEB [facility] Last Admin: 02/15/18 08:54 Dose: Not Given Aspirin (Aspirin) 325 mg PO DAILY [facility] Bacitracin (Baciguent Oint) 1 applicatio TOPICAL BID [facility] Last Admin: 02/15/18 10:28 Dose: 1 applicatio Bisacodyl (Dulcolax Supp) 10 mg RECTAL DAILY PRN PRN Reason: SEVERE CONSITIPATION Carbamazepine (Tegretol Chewable) 300 mg PO BID [facility] Last Admin: 02/15/18 10:27 Dose: 300 mg Enoxaparin Sodium (Lovenox Inj) 40 mg SQ Q24H [facility] Last Admin: 02/14/18 20:01 Dose: 40 mg Levetiracetam (Keppra 1000 Mg/100 Ml Premix) 100 mls @ 400 mls/hr IV.SIG Q12H [facility] Last Infusion: 02/15/18 09:05 Dose: Infused Lactulose (Lactulose Liq) 30 ml PO DAILY PRN PRN Reason: SEVERE CONSITIPATION Lamotrigine (Lamictal) 100 mg PO BID [facility] Last Admin: 02/15/18 10:28 Dose: 100 mg Lamotrigine (Lamictal) 200 mg PO BID [facility] Last Admin: 02/15/18 08:49 Dose: 200 mg Morphine Sulfate (Morphine Inj) 4 mg IV.PUSH Q3H PRN PRN Reason: BREAKTHROUGH PAIN Last Admin: 02/15/18 10:07 Dose: 4 mg Naloxone HCl (Narcan Inj) 0.4 mg IV.PUSH UNSCH PRN PRN Reason: SEE LABEL COMMENTS Ondansetron HCl (Zofran Inj) 4 mg IV.PUSH Q6H PRN PRN Reason: NAUSEA OR VOMITING Last Admin: 02/14/18 15:58 Dose: 4 mg Oxycodone HCl (Roxicodone) 5 mg PO Q4H PRN PRN Reason: PAIN SCALE 3 TO 5 Oxycodone HCl (Roxicodone) 10 mg PO Q4H PRN PRN Reason: PAIN SCALE 6 TO 10 Last Admin: 02/15/18 08:49 Dose: 10 mg Pantoprazole Sodium (Protonix Inj) 40 mg IV.PUSH Q24H [facility] Last Admin: 02/14/18 20:00 Dose: 40 mg Polyethylene Glycol (Miralax) 17 gm PO DAILY [facility] Last Admin: 02/15/18 08:50 Dose: Not Given Sennosides (Senokot) 17.2 mg PO Q12H PRN PRN Reason: Moderate Constipation Sertraline HCl (Zoloft) 150 mg PO DAILY [facility] Last Admin: 02/15/18 08:49 Dose: 150 mg Sodium Chloride (Ns Flush) 2 ml IV.FLUSH BID [facility] Last Admin: 02/15/18 08:52 Dose: Not Given Sodium Chloride (Ns Flush) 2 ml IV.FLUSH PRN PRN PRN Reason: FLUSH AFTER USING IV ACCESS Zonisamide (Zonegran) 300 mg PO BID [facility] Last Admin: 02/15/18 08:49 Dose: 300 mg Allergies/Adverse Reactions: Allergies Allergy/AdvReac Type Severity Reaction Status Date / Time No Known Allergies Allergy Verified 02/12/18 14:55 Physical Exam Vital signs: Vital Signs 02/14/18 12:00 02/14/18 13:36 02/14/18 16:43 Temperature 98.2 F 98.6 F Pulse Rate 91 H 91 H 94 H Respiratory Rate 19 18 19 Blood Pressure 108/69 116/65 Pulse Oximetry 97 90 L 02/14/18 20:00 02/14/18 20:18 02/14/18 21:11 Temperature 98.5 F Pulse Rate 107 H 107 H Respiratory Rate 20 16 18 Blood Pressure 115/66 Pulse Oximetry 100 95 02/15/18 00:00 02/15/18 01:07 02/15/18 08:00 Temperature 98.1 F 98.0 F Pulse Rate 97 H 80 Respiratory Rate 18 18 17 Blood Pressure 111/64 118/77 Pulse Oximetry 96 90 L Intake & Output 02/14/18 02/15/18 02/15/18 18:59 06:59 18:59 Intake Total 500 / 500 1300 / 1300 100 / 100 Balance 500 / 500 1300 / 1300 100 / 100 Weight 64 kg Intake: IV 500 / 500 1300 / 1300 100 / 100 NS Inj 1,000 ML @ 50 mls/hr IV. 1000 / 1000 CONT .Q20H [facility] Rx#:[id number] Unasyn Inj 1,500 MG In NS Inj 300 / 300 200 / 200 100 ML @ 200 mls/hr IV.SIG Q6H [facility] Rx#:[id number] Keppra 1000 mg/100 mL Premix 200 / 200 100 / 100 100 / 100 100 ML @ 400 mls/hr IV.SIG Q12H [facility] Rx#:[id number] Other: # Voids 1 - Routine Neurological Exam alert, speech normal CN--?left facial weakness, PERRL, EOM intact. MOTOR 4/5 right deltoid, biceps, triceps, interossei. 5/5 LUE - Urinary Catheter Management Indwelling Urethral Catheter Cath placed during this visit: yes Reason for continuing: Hourly intake/output Insertion date: 02/11/18 Objective Radiology Results: MRI brain--several small diffusion abnormality right parietal c/w acute/ subacute strokes Review/Management - Review/Management Plan: She has evidence of acute/subacute infarction right hemisphere. R/O carotid dissection. Right arm weakness is likely a brachial plexopathy. stat CTA carotid to r/o right carotid dissection. Start asa CTA brain MRI cervical spine and right brachial plexus
--- NOTE | 2018-02-15 12:49 | P.PN ---
Subjective Interval history: MRI brain shows several small diffusion abnormality right parietal lobe- follow up exams per neuro Pain controlled Afebrile, neck wounds without s/s of infection Physical Exam Vital signs: Vital Signs 02/14/18 13:36 02/14/18 16:43 02/14/18 20:00 Temperature 98.6 F 98.5 F Pulse Rate 91 H 94 H 107 H Respiratory Rate 18 19 20 Blood Pressure 116/65 115/66 Pulse Oximetry 90 L 100 02/14/18 20:18 02/14/18 21:11 02/15/18 00:00 Temperature 98.1 F Pulse Rate 107 H 97 H Respiratory Rate 16 18 18 Blood Pressure 111/64 Pulse Oximetry 95 96 02/15/18 01:07 02/15/18 08:00 02/15/18 11:43 Temperature 98.0 F Pulse Rate 80 82 Respiratory Rate 18 17 18 Blood Pressure 118/77 Pulse Oximetry 90 L 02/15/18 12:00 Temperature 97.3 F L Pulse Rate 97 H Respiratory Rate 17 Blood Pressure 108/59 L Pulse Oximetry 100 Intake & Output 02/14/18 02/15/18 02/15/18 18:59 06:59 18:59 Intake Total 500 / 500 1300 / 1300 100 / 100 Balance 500 / 500 1300 / 1300 100 / 100 Weight 64 kg Intake: IV 500 / 500 1300 / 1300 100 / 100 NS Inj 1,000 ML @ 50 mls/hr IV. 1000 / 1000 CONT .Q20H MARY Rx#:[id number] Unasyn Inj 1,500 MG In NS Inj 300 / 300 200 / 200 100 ML @ 200 mls/hr IV.SIG Q6H MARY Rx#:[id number] Keppra 1000 mg/100 mL Premix 200 / 200 100 / 100 100 / 100 100 ML @ 400 mls/hr IV.SIG Q12H MARY Rx#:[id number] Other: # Voids 1 Narrative: GENERAL: 27-year-old well-nourished, well developed female sitting up in bed in no acute distress. SKIN: Warm and dry. Left facial and bilateral neck edema noted. HEAD: Normocephalic. EYES: Pupils equal and round. Left sub-conjunctival hemorrhage noted. ENT: No nasal bleeding or discharge. Mucous membranes pink and moist. NECK: Trachea midline. No JVD. Bilateral neck sutures well approximated, no erythema or drainage noted. CARDIOVASCULAR: Regular rate and rhythm. RESPIRATORY: No accessory muscle use. Lungs clear to auscultation bilaterally. GASTROINTESTINAL: Abdomen soft, non-tender, nondistended. + BS. MUSCULOSKELETAL: Extremities without cyanosis, or edema. MAEW, + perfused NEUROLOGICAL: Awake and alert. Normal speech. Flat affect. - Urinary Catheter Management Indwelling Urethral Catheter Cath placed during this visit: yes Reason for continuing: Hourly intake/output Insertion date: 02/11/18 Results - Labs CBC & Chem 7: 02/16/18 04:18 02/17/18 07:24 - Imaging Impressions Head MRI 02/15/18 00:00 CONCLUSION: 1. Right sided deep white matter and subcortical white matter T2 hyperintensities with restricted diffusion. These may represent small embolic infarcts or operating inflammatory/infectious disease. 2. No evidence of significant mass effect, shift or hemorrhage. 3. Otherwise normal exam. Assessment and Plan - Plan [place]: Reportedly had a seizure at home in the presence of several pit bulls. One of the pit bulls became excited and bit the patient on the right face and left neck. Initially the patient was awake and alert complaining of SOB then she began to deteriorate, become lethargic and gurgling blood so she was intubated by EMS. INJURIES: Puncture wounds/dog bites BILAT neck ?Aspiration PMHx: Epilepsy Puncture wounds/dog bites BILAT neck, ?Aspiration 02/11: Intubated 02/11: Exploration of the right neck with ligation of various branches of the jugular vein and irrigation of the neck tissues with drain placement. 02/11: Primary closure of multiple bilateral face and neck lacerations (>10cm) 02/12: Extubated Supportive care Wound care: Apply Bacitracin BID to neck wounds and leave DAVE IV Unasyn complete Speech therapy consulted for swallow evaluation Afebrile overnight Pain control Bowel regimen OOB- PT and OT ordered Lovenox Epilepsy Neurology consulted CT head shows no acute abnormalities EEG negative for seizures Seizure precautions IV Keppra Home Lamictal, Zonegran, Tegretol, Lamotrigine resumed Neuropsychology consulted 02/15: MRI brain shows several small diffusion abnormality right parietal lobe CTA carotid to r/o right carotid dissection, CTA brain, MRI cervical spine and right brachial plexus Plan of care discussed with patient and RN at bedside. Collaborating Trauma surgeon agrees with plan. Case management consulted to assist with discharge planning.
[2018-02-15] MEDS ORDERED: Gadobutrol PF 7.5 MMOL/7.5 ML Vial (for RAD) IV.SIG ONE (13:01)
--- NOTE | 2018-02-15 13:49 | MR ---
EXAM DATE: 02/15/2018 1:11 PM EST AGE/SEX: 27 years / Female INDICATIONS: Trauma. Right shoulder pain s/p injuries from dog attack. CLINICAL DATA: This is the patient's initial encounter. Patient reports that signs and symptoms have been present for 1 week and indicates a pain score of 4/10. MEDICAL/SURGICAL HISTORY: None. Cholecystectomy. COMPARISON: [facility] – [place], [place] SOFT TISSUE NECK W CONTRAST, 02/11/2018. . TECHNIQUE: Multiplanar, multisequence MRI examination of the cervical spine was performed without an d with 6cc ml Gadavist (gadobutrol) contrast as a single exam dose. FINDINGS: ALIGNMENT: Mild reversal of normal lordosis is noted. Vertebral bodies are otherwise satisfactorily a ligned without evidence of listhesis. FACET AND OSSEOUS STRUCTURES: Mild prevertebral and paraspinal soft tissue inflammation is noted. The re are no discrete fluid collections. The paraspinal inflammation is slightly greater along the right anterolateral neck. Vertebral body height is well-maintained. There is no evidence of acute fracture, bone marrow edema or destructive changes. There is no significant facet arthropathy. INTERVERTEBRAL DISC SPACES: Intervertebral disc are well-maintained without evidence of significant degenerative change. There is no evidence of disc herniation. NEUROLOGIC STRUCTURES: The spinal cord and nerve roots appear normal. There is no evidence of jim fausto. . CONCLUSION: 1. Prevertebral and paraspinal inflammation. 2. No findings to suggest nerve root avulsion or pseudomeningocele development. 3. Otherwise normal evaluation of the cervical spine without evidence of acute bony trauma or disc h erniation. Electronically signed by: Zana Sheth MD Board Certified Radiologist 02/15/2018 1:48 PM EST
--- NOTE | 2018-02-15 14:17 | MR ---
EXAM DATE: 02/15/2018 1:16 PM EST AGE/SEX: 27 years / Female INDICATIONS: Trauma. Right shoulder pain s/p injuries from dog attack. CLINICAL DATA: This is the patient's initial encounter. Patient reports that signs and symptoms have been present for 1 week and indicates a pain score of 4/10. MEDICAL/SURGICAL HISTORY: None. Cholecystectomy. COMPARISON: No prior exams available for comparison. TECHNIQUE: Multiplanar, multisequence MRI examination of the right brachial plexus was performed wit hout contrast and after intravenous administration of 6cc ml Gadavist (gadobutrol) contrast as a sin gle exam dose. FINDINGS: Soft Tissues: Extensive soft tissue edema is identified within the deep cervical soft tissues involv ing the prevertebral space, retropharyngeal space, carotid space and subcutaneous soft tissues. The i nflammatory changes extend caudally and appear to enter the superior mediastinum. Laboratory changes are identified in the right sided prevertebral muscles. Lungs: The visualized pulmonary apex is unremarkable. Neurovascular: Inflammatory changes are identified throughout the brachial plexus with poor lineatio n of the neurologic structures on the right. Inflammatory changes are especially prominent surroundin g the trunks and divisions. The carotid sheath structures appear intact without evidence of occlusion or dissection. Bony Structures: There is homogeneous signal in the marrow of the visualized bones. CONCLUSION: 1. Extensive soft tissue inflammation as described above within the neck extending from the proximal cervical region into the upper mediastinum. The retropharyngeal space leads into the mediastinum and may result in mediastinitis. 2. Right-sided prevertebral muscular inflammation 3. No evidence of abscess formation 4. Poor delineation of the neurologic structures within the right brachial plexus which are obscured by extensive inflammation. 5. No evidence of vascular occlusion or dissection. 6. Verbal report given to Dr. Wilkinson Electronically signed by: Zana Sheth MD Board Certified Radiologist 02/15/2018 2:16 PM EST
[2018-02-15] MEDS: Aspirin 325 MG Tablet PO SCH (14:20)
--- NOTE | 2018-02-15 15:19 | CT ---
EXAM DATE: 02/15/2018 2:46 PM EST AGE/SEX: 27 years / Female INDICATIONS: Right arm weakness. CLINICAL DATA: This is the patient's initial encounter. Patient reports that signs and symptoms have been present for 1 day and indicates a pain score of 0/10. MEDICAL/SURGICAL HISTORY: Seizures. None. RADIATION DOSE: 28.50 CTDI (mGy) ; Combined studies COMPARISON: No prior exams available for comparison. TECHNIQUE: Volumetric scanning was performed using a multirow detector CT scanner during bolus infus ion of 75 ml Omnipaque 350 (iohexol) nonionic water-soluble contrast as a cumulative dose for multip le exams. The data was postprocessed with a variety of visualization algorithms including full-volu me maximum intensity projection, multiplanar sliding thin-slab reformation, curved-planar reformation , and surface-rendering techniques. Using automated exposure control and adjustment of the mA and/or kV according to patient size, radiation dose was kept as low as reasonably achievable to obtain opti mal diagnostic quality images. DICOM format image data is available electronically for review and co mparison. FINDINGS: Aortic Arch: There is a three-vessel origin of the great vessels from the aorta. No evidence of ost ial narrowing Right Carotid: Focal deformity is identified in the distal right internal carotid artery just proxim al to the bifurcation. There is short mild to moderate segmental narrowing which is less than 50%. Th is is followed by focal aneurysmal enlargement of the vessel which measures approximately 6 to 7 mm i n length by 9 mm in width. This characteristic of focal vascular vascular wall injury with posttrauma tic aneurysmal formation. There is no evidence of distal or proximal intimal dissection. There are no intraluminal filling defects. Left Carotid: The common carotid artery is intact. The carotid bulb has a normal configuration with out ulceration or narrowing. The internal carotid artery lumen is smooth without stenosis. The exte rnal carotid artery is intact. Vertebrals: The left vertebral artery is large and dominant. A small hypoplastic right vertebral art jenna is noted. Percent stenosis is calculated using the diameter of the stenotic region over the diameter of the nor mal distal internal carotid artery. CONCLUSION: 1. 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 There is no evidence of intraluminal filling defect, s ignificant stenosis or distal dissection. 2. Intact left carotid 3. Dominant left vertebral artery. Electronically signed by: Zana Sheth MD Board Certified Radiologist 02/15/2018 3:18 PM EST
--- NOTE | 2018-02-15 15:22 | CT ---
EXAM DATE: 02/15/2018 2:45 PM EST AGE/SEX: 27 years / Female INDICATIONS: Right arm weakness. CLINICAL DATA: This is the patient's initial encounter. Patient reports that signs and symptoms have been present for 1 day and indicates a pain score of 0/10. MEDICAL/SURGICAL HISTORY: Seizures. None. RADIATION DOSE: 28.50 CTDI (mGy) COMPARISON: [facility] [place] HEAD W/O CONTRAST, 02/11/2018. . TECHNIQUE: Volumetric scanning was performed using a multi-row detector CT scanner during bolus infu fausto of 75 ml Omnipaque 350 (iohexol) nonionic water-soluble contrast as a cumulative dose for multi ple exams. The data was post processed with a variety of visualization algorithms including full vo lume maximum intensity projection, multi-planar sliding thin slab reformation, curved planar reformat ion, and surface rendering techniques. Using automated exposure control and adjustment of the mA and /or kV according to patient size, radiation dose was kept as low as reasonably achievable to obtain o ptimal diagnostic quality images. DICOM format image data is available electronically for review and comparison. FINDINGS: There is excellent visualization of the major intracranial arteries out to the second-order branch ve ssels. There is no evidence for aneurysm, vessel truncation or stenosis, and no evidence for vascula r malformation. CONCLUSION: Negative CTA Head. Electronically signed by: Zana Sheth MD Board Certified Radiologist 02/15/2018 3:21 PM EST
[2018-02-15] MEDS ORDERED: Vancomycin Consult Pharmacy OTHER PRN (15:40)
--- NOTE | 2018-02-15 17:30 | ECG ---
Date Performed: 02/15/2018 Time Performed: 16:20:22 PTAGE: 27 years EKG: Sinus rhythm WITH SINUS ARRHYTHMIA NORMAL ECG NO PREVIOUS TRACING DOCTOR: Sim Lovelace Interpretating Date/Time 02/15/2018 17:29:34
[2018-02-15] MEDS: Piperacil/Tazo 4.5 GM Premix 4.5 GM/100 ML BAG IV.SIG SCH ×2 (18:27→23:25)
[2018-02-15] MEDS: Vancomycin Inj 1,000 MG in Sodium Chlor 0.9% Inj 250 ML IV.SIG SCH (19:25)
[2018-02-15] MEDS: Enoxaparin Inj 40 MG/0.4 ML Syringe SQ SCH (20:39)
[2018-02-15] MEDS: Senna/Docusate Sodium 8.6/50 MG Tablet PO SCH (20:40)
[2018-02-16] MEDS: Vancomycin Inj 1,000 MG in Sodium Chlor 0.9% Inj 250 ML IV.SIG SCH ×2 (04:38→17:18)
[2018-02-16 04:41] LABS: Baso % (Auto) 0.7 % (0.0-2.0); Eos # (Auto) 0.1 th/mm3 (0.0-0.4); Eos % (Auto) 3.2 % (0.0-4.0); Hematocrit 30.7 % (35.0-46.0); Hemoglobin 10.7 gm/dL (11.6-15.3); Lymph # (Auto) 1.1 th/mm3 (1.0-4.8); Lymph % (Auto) 25.5 % (9.0-44.0); Mean Corpuscular HGB Conc 34.7 % (32.0-36.0); Mean Corpuscular Hemoglobin 34.1 pg (27.0-34.0); Mean Corpuscular Volume 98.4 fL (80.0-100.0); Mean Platelet Volume 8.3 fL (7.0-11.0); Mono # (Auto) 0.4 th/mm3 (0.0-0.9); Mono % (Auto) 9.5 % (0.0-8.0); Neut # (Auto) 2.6 th/mm3 (1.8-7.7); Neut % (Auto) 61.1 % (16.0-70.0); Platelet Count 161 th/mm3 (150-450); Red Blood Count 3.12 mil/mm3 (4.00-5.30); Red Cell Distribution Width 12.4 % (11.6-17.2); White Blood Count 4.3 th/mm3 (4.0-11.0)
[2018-02-16 05:33] LABS: Calcium 8.3 mg/dL (8.5-10.1); Potassium 3.8 meq/L (3.5-5.1)
[2018-02-16] MEDS: Piperacil/Tazo 4.5 GM Premix 4.5 GM/100 ML BAG IV.SIG SCH ×4 (06:23→23:15)
[2018-02-16] MEDS: levETIRAcetam 1000mg/100mL Inj 100 ML IV.SIG SCH (08:07)
[2018-02-16] MEDS: Aspirin 325 MG Tablet PO SCH (08:08)
[2018-02-16] MEDS: Sertraline 50 MG Tablet PO SCH (08:09)
[2018-02-16] MEDS: lamoTRIgine 100 MG Tablet PO SCH ×4 (08:09→20:06)
[2018-02-16] MEDS: Senna/Docusate Sodium 8.6/50 MG Tablet PO SCH ×2 (08:09→20:06)
[2018-02-16] MEDS: Sodium Chloride 0.9% 2 ML Flush BID IV.FLUSH SCH ×2 (08:10→20:05)
[2018-02-16] MEDS: carBAMazepine 100 MG Chewable Tablets PO SCH ×2 (08:17→20:05)
--- NOTE | 2018-02-16 12:10 | P.PN ---
Subjective Interval history: Nauseated, Zofran ineffective per pt Afebrile Ambulates halls per nursing Physical Exam Vital signs: Vital Signs 02/15/18 12:00 02/15/18 16:00 02/15/18 20:00 Temperature 97.3 F L 97.6 F 98.0 F Pulse Rate 97 H 110 H 100 H Respiratory Rate 17 17 20 Blood Pressure 108/59 L 130/75 114/69 Pulse Oximetry 100 96 99 02/15/18 20:28 02/16/18 00:00 02/16/18 07:29 Temperature 98.5 F Pulse Rate 89 114 H 80 Respiratory Rate 14 20 16 Blood Pressure 122/69 Pulse Oximetry 95 02/16/18 08:00 Temperature 98.0 F Pulse Rate 99 H Respiratory Rate 16 Blood Pressure 126/66 Pulse Oximetry 94 L Intake & Output 02/15/18 02/16/18 02/16/18 18:59 06:59 18:59 Intake Total 1700 / 1700 550 / 550 450 / 450 Balance 1700 / 1700 550 / 550 450 / 450 Weight 62.3 kg Intake: IV 100 / 100 550 / 550 450 / 450 Zosyn 4.5 GM Premix 4.5 gm In 200 / 200 100 / 100 100 ml @ 300 mls/hr IV.SIG Q6H [facility] Rx#:[id number] Vancomycin Inj 1,000 MG In NS 250 / 250 250 / 250 Inj 250 ML @ 250 mls/hr IV.SIG Q12H [facility] Rx#:[id number] Keppra 1000 mg/100 mL Premix 100 / 100 100 / 100 100 / 100 100 ML @ 400 mls/hr IV.SIG Q12H [facility] Rx#:[id number] Oral 1600 / 1600 Other: # Voids 4 2 # Bowel Movements 1 Narrative: GENERAL: 27-year-old well-nourished, well developed female lying in bed playing on her cellphone. SKIN: Warm and dry. Left facial and bilateral neck edema noted. EYES: Pupils equal and round. Left sub-conjunctival hemorrhage noted. ENT: No nasal bleeding or discharge. Mucous membranes pink and moist. NECK: Trachea midline. No JVD. Bilateral neck sutures well approximated, no erythema or drainage noted. CARDIOVASCULAR: Regular rate and rhythm. RESPIRATORY: No accessory muscle use. Lungs clear to auscultation bilaterally. GASTROINTESTINAL: Abdomen soft, non-tender, nondistended. + BS. MUSCULOSKELETAL: Extremities without cyanosis, or edema. MAEW, + perfused NEUROLOGICAL: Awake and alert. Normal speech. Flat affect. - Urinary Catheter Management Indwelling Urethral Catheter Cath placed during this visit: yes, but has since been removed by the nurse Reason for continuing: Hourly intake/output Insertion date: 02/11/18 Removal date: 02/12/18 Results - Labs CBC & Chem 7: 02/16/18 04:18 02/16/18 04:18 Laboratory Results - last 24 hr 02/15/18 02/16/18 02/16/18 14:32 04:18 04:18 WBC 4.3 RBC 3.12 L Hgb 10.7 L Hct 30.7 L MCV 98.4 MCH 34.1 H MCHC 34.7 RDW 12.4 Plt Count 161 D MPV 8.3 Neut % (Auto) 61.1 Lymph % (Auto) 25.5 [place] % (Auto) 9.5 H Eos % (Auto) 3.2 Baso % (Auto) 0.7 Neut # (Auto) 2.6 Lymph # (Auto) 1.1 [place] # (Auto) 0.4 Eos # (Auto) 0.1 Baso # (Auto) 0.0 WBC Differential . Differential Comment Auto diff final Sodium 142 Potassium 3.8 Chloride 108 H Carbon Dioxide 26.0 Anion Gap 8 BUN 5 L Creatinine 0.83 Estimated GFR 82 L Random Glucose 79 Calcium 8.3 L Beta HCG, Qual Less than 1.0 - Imaging Impressions Brachial Plexus MRI 02/15/18 00:00 CONCLUSION: 1. Extensive soft tissue inflammation as described above within the neck extending from the proximal cervical region into the upper mediastinum. The retropharyngeal space leads into the mediastinum and may result in mediastinitis. 2. Right-sided prevertebral muscular inflammation 3. No evidence of abscess formation 4. Poor delineation of the neurologic structures within the right brachial plexus which are obscured by extensive inflammation. 5. No evidence of vascular occlusion or dissection. 6. Verbal report given to Dr. Wilkinson Cervical Spine MRI 02/15/18 00:00 CONCLUSION: 1. Prevertebral and paraspinal inflammation. 2. No findings to suggest nerve root avulsion or pseudomeningocele development. 3. Otherwise normal evaluation of the cervical spine without evidence of acute bony trauma or disc herniation. Head CTA 02/15/18 11:39 CONCLUSION: Negative CTA Head. Neck CTA 02/15/18 11:39 CONCLUSION: 1. Focal vascular injury involving the distal right internal carotid artery with focal narrowing followed by post traumatic aneurysm as described. There is no evidence of intraluminal filling defect, significant stenosis or distal dissection. 2. Intact left carotid 3. Dominant left vertebral artery. Assessment and Plan - Plan [place]: Reportedly had a seizure at home in the presence of several pit bulls. One of the pit bulls became excited and bit the patient on the right face and left neck. Initially the patient was awake and alert complaining of SOB then she began to deteriorate, become lethargic and gurgling blood so she was intubated by EMS. INJURIES: Puncture wounds/dog bites BILAT neck ?Aspiration PMHx: Epilepsy Puncture wounds/dog bites BILAT neck, ?Aspiration 02/11: Intubated 02/11: Exploration of the right neck with ligation of various branches of the jugular vein and irrigation of the neck tissues with drain placement. 02/11: Primary closure of multiple bilateral face and neck lacerations (>10cm) 02/12: Extubated Supportive care Pain control Bowel regimen OOB- PT and OT ordered Wound care: Apply Bacitracin BID to neck wounds and leave EXECUTIVE PASTRY CHEF 02/15: Brachial plexus MRI- Extensive soft tissue inflammation extending from the neck into the upper mediastinum IV Abx: Vanco and Zosyn Afebrile 02/15: CTA neck- R internal carotid vascular injury ASA 325mg QD Lovenox 40mg QD Epilepsy, RIGHT parietal CVA Neurology consulted CT head shows no acute abnormalities Seizure precautions IV Keppra Home Lamictal, Zonegran, Tegretol, Lamotrigine resumed Neuropsychology consulted 02/15: MRI brain shows several small diffusion abnormality right parietal lobe 02/15: Head CTA- negative 02/15: MRI c-spine- negative for acute fx or subluxation EEG- neg for seizure activity Echocardiogram pending Zofran, Decadron IV PRN N/V Plan of care discussed with patient and RN at bedside. Collaborating Trauma surgeon agrees with plan. Case management consulted to assist with discharge planning.
--- NOTE | 2018-02-16 17:44 | P.PNNEU ---
Subjective Subjective Comments: No new neurologic SX. RUE weakness without change. Denies left sided sx. Active Medications: Active Medications Al Hydroxide/Mg Hydroxide (Milk Of Magnesia Liq) 30 ml PO Q12H PRN PRN Reason: Mild Constipation Albuterol (Duoneb Neb (Prn)) 1 ampul NEB Q2HR NEB PRN PRN Reason: SHORTNESS OF BREATH Albuterol (Duoneb Neb (Valdo)) 1 ampul NEB Q6HR WHILE AWAKE NEB [facility] Last Admin: 02/16/18 13:43 Dose: 1 ampul Aspirin (Aspirin) 325 mg PO DAILY [facility] Last Admin: 02/16/18 08:08 Dose: 325 mg Bacitracin (Baciguent Oint) 1 applicatio TOPICAL BID [facility] Last Admin: 02/16/18 08:10 Dose: 1 applicatio Bisacodyl (Dulcolax Supp) 10 mg RECTAL DAILY PRN PRN Reason: SEVERE CONSITIPATION Carbamazepine (Tegretol Chewable) 300 mg PO BID [facility] Last Admin: 02/16/18 08:17 Dose: 300 mg Dexamethasone Sodium Phosphate (Decadron Inj) 4 mg IV.PUSH Q6HR PRN PRN Reason: NAUSEA Enoxaparin Sodium (Lovenox Inj) 40 mg SQ Q24H [facility] Last Admin: 02/15/18 20:39 Dose: 40 mg Vancomycin HCl 1,000 mg/ (Sodium Chloride) 250 mls @ 250 mls/hr IV.SIG Q12H [facility] Last Admin: 02/16/18 17:18 Dose: 125 mls/hr Piperacillin/Tazobactam/Dextrose (Zosyn 4.5 Gm Premix) 4.5 gm in 100 mls @ 300 mls/hr IV.SIG Q6H [facility] Last Admin: 02/16/18 17:15 Dose: 300 mls/hr Lactulose (Lactulose Liq) 30 ml PO DAILY PRN PRN Reason: SEVERE CONSITIPATION Lactulose (Lactulose Liq) 30 ml PO DAILY [facility] Last Admin: 02/16/18 08:11 Dose: 30 ml Lamotrigine (Lamictal) 100 mg PO BID [facility] Last Admin: 02/16/18 08:10 Dose: 100 mg Lamotrigine (Lamictal) 200 mg PO BID [facility] Last Admin: 02/16/18 08:09 Dose: 200 mg Levetiracetam (Keppra) 500 mg PO BID [facility] Miscellaneous Information ([facility] Ordered Lab Info) 0 each OTHER ONCE ONE Stop: 02/17/18 04:46 Naloxone HCl (Narcan Inj) 0.4 mg IV.PUSH UNSCH PRN PRN Reason: SEE LABEL COMMENTS Ondansetron HCl (Zofran Inj) 4 mg IV.PUSH Q6H PRN PRN Reason: NAUSEA OR VOMITING Last Admin: 02/16/18 08:17 Dose: 4 mg Oxycodone HCl (Roxicodone) 5 mg PO Q4H PRN PRN Reason: PAIN SCALE 3 TO 5 Oxycodone HCl (Roxicodone) 10 mg PO Q4H PRN PRN Reason: PAIN SCALE 6 TO 10 Last Admin: 02/16/18 17:17 Dose: 10 mg Pharmacy Profile Note (Vancomycin Consult Pharmacy) 1 each OTHER UNSCH PRN PRN Reason: Pharmacy to dose Senna/Docusate Sodium (Hanna-Colace) 1 tab PO BID [facility] Last Admin: 02/16/18 08:09 Dose: 1 tab Sennosides (Senokot) 17.2 mg PO Q12H PRN PRN Reason: Moderate Constipation Sertraline HCl (Zoloft) 150 mg PO DAILY [facility] Last Admin: 02/16/18 08:09 Dose: 150 mg Sodium Chloride (Ns Flush) 2 ml IV.FLUSH BID [facility] Last Admin: 02/16/18 08:10 Dose: Not Given Sodium Chloride (Ns Flush) 2 ml IV.FLUSH PRN PRN PRN Reason: FLUSH AFTER USING IV ACCESS Zonisamide (Zonegran) 300 mg PO BID [facility] Last Admin: 02/16/18 08:09 Dose: 300 mg Allergies/Adverse Reactions: Allergies Allergy/AdvReac Type Severity Reaction Status Date / Time No Known Allergies Allergy Verified 02/12/18 14:55 Physical Exam Vital signs: Vital Signs 02/15/18 20:00 02/15/18 20:28 02/16/18 00:00 Temperature 98.0 F 98.5 F Pulse Rate 100 H 89 114 H Respiratory Rate 20 14 20 Blood Pressure 114/69 122/69 Pulse Oximetry 99 95 02/16/18 07:29 02/16/18 08:00 02/16/18 12:00 Temperature 98.0 F 98.3 F Pulse Rate 80 99 H 92 H Respiratory Rate 16 16 18 Blood Pressure 126/66 107/78 Pulse Oximetry 94 L 96 02/16/18 13:43 02/16/18 16:00 Temperature 98.0 F Pulse Rate 113 H 118 H Respiratory Rate 18 16 Blood Pressure 100/56 L Pulse Oximetry 96 Intake & Output 02/15/18 02/16/18 02/16/18 18:59 06:59 18:59 Intake Total 1700 / 1700 550 / 550 550 / 550 Balance 1700 / 1700 550 / 550 550 / 550 Weight 62.3 kg Intake: IV 100 / 100 550 / 550 550 / 550 Zosyn 4.5 GM Premix 4.5 gm In 200 / 200 200 / 200 100 ml @ 300 mls/hr IV.SIG Q6H [facility] Rx#:[id number] Vancomycin Inj 1,000 MG In NS 250 / 250 250 / 250 Inj 250 ML @ 250 mls/hr IV.SIG Q12H [facility] Rx#:[id number] Keppra 1000 mg/100 mL Premix 100 / 100 100 / 100 100 / 100 100 ML @ 400 mls/hr IV.SIG Q12H [facility] Rx#:[id number] Oral 1600 / 1600 Other: # Voids 4 2 # Bowel Movements 1 - Routine Neurological Exam alert, speech normal CN intact MOTOR 4/5 right deltoid, biceps, triceps, brachioradialis interossei 5/5 LUE and LLE - Urinary Catheter Management Indwelling Urethral Catheter Cath placed during this visit: yes, but has since been removed by the nurse Reason for continuing: Hourly intake/output Insertion date: 02/11/18 Removal date: 02/12/18 Objective Radiology Results: MRI cervical spine and brachila plexus noted CTA--small injury to proximal ICA with aneurysm associated. No significant stenosis CTA brain normal Laboratory Results - last 24 hr 02/16/18 02/16/18 04:18 04:18 WBC 4.3 RBC 3.12 L Hgb 10.7 L Hct 30.7 L MCV 98.4 MCH 34.1 H MCHC 34.7 RDW 12.4 Plt Count 161 D MPV 8.3 Neut % (Auto) 61.1 Lymph % (Auto) 25.5 [place] % (Auto) 9.5 H Eos % (Auto) 3.2 Baso % (Auto) 0.7 Neut # (Auto) 2.6 Lymph # (Auto) 1.1 [place] # (Auto) 0.4 Eos # (Auto) 0.1 Baso # (Auto) 0.0 WBC Differential . Differential Comment Auto diff final Sodium 142 Potassium 3.8 Chloride 108 H Carbon Dioxide 26.0 Anion Gap 8 BUN 5 L Creatinine 0.83 Estimated GFR 82 L Random Glucose 79 Calcium 8.3 L Review/Management - Review/Management Plan: continue asa PT/OT
[2018-02-16] MEDS: Enoxaparin Inj 40 MG/0.4 ML Syringe SQ SCH (20:05)
[2018-02-16] MEDS: levETIRAcetam 500 MG Tablet PO SCH (20:05)
[2018-02-17] MEDS: Vancomycin Inj 1,000 MG in Sodium Chlor 0.9% Inj 250 ML IV.SIG SCH (04:33)
[2018-02-17] MEDS ORDERED: Pharmacy Ordered Lab Info OTHER ONE (04:45)
[2018-02-17] MEDS: Piperacil/Tazo 4.5 GM Premix 4.5 GM/100 ML BAG IV.SIG SCH ×3 (05:52→18:16)
[2018-02-17] MEDS: Aspirin 325 MG Tablet PO SCH (08:00)
[2018-02-17] MEDS: Sertraline 50 MG Tablet PO SCH (08:01)
[2018-02-17] MEDS: Senna/Docusate Sodium 8.6/50 MG Tablet PO SCH ×2 (08:01→21:58)
--- NOTE | 2018-02-17 08:32 | P.PNNEU ---
Subjective Subjective Comments: No new neuro sx. She takes tegretol ER 300 mg bid, lamictal 200 mg bid and zonisamide 300 mg bid for sz. She states as long as she takes these her sz are controlled. She states she was not taking her anticonvulsants when she had the sz. Active Medications: Active Medications Al Hydroxide/Mg Hydroxide (Milk Of Magnesia Liq) 30 ml PO Q12H PRN PRN Reason: Mild Constipation Albuterol (Duoneb Neb (Prn)) 1 ampul NEB Q2HR NEB PRN PRN Reason: SHORTNESS OF BREATH Albuterol (Duoneb Neb (Valdo)) 1 ampul NEB Q6HR WHILE AWAKE NEB [facility] Last Admin: 02/17/18 07:43 Dose: 1 ampul Aspirin (Aspirin) 325 mg PO DAILY [facility] Last Admin: 02/17/18 08:00 Dose: 325 mg Bacitracin (Baciguent Oint) 1 applicatio TOPICAL BID [facility] Last Admin: 02/16/18 20:05 Dose: 1 applicatio Bisacodyl (Dulcolax Supp) 10 mg RECTAL DAILY PRN PRN Reason: SEVERE CONSITIPATION Carbamazepine (Tegretol Chewable) 300 mg PO BID [facility] Last Admin: 02/16/18 20:05 Dose: 300 mg Enoxaparin Sodium (Lovenox Inj) 40 mg SQ Q24H [facility] Last Admin: 02/16/18 20:05 Dose: 40 mg Vancomycin HCl 1,000 mg/ (Sodium Chloride) 250 mls @ 250 mls/hr IV.SIG Q12H [facility] Last Infusion: 02/17/18 06:27 Dose: Infused Piperacillin/Tazobactam/Dextrose (Zosyn 4.5 Gm Premix) 4.5 gm in 100 mls @ 300 mls/hr IV.SIG Q6H [facility] Last Admin: 02/17/18 05:52 Dose: 100 mls/hr Lactulose (Lactulose Liq) 30 ml PO DAILY PRN PRN Reason: SEVERE CONSITIPATION Lactulose (Lactulose Liq) 30 ml PO DAILY [facility] Last Admin: 02/17/18 08:02 Dose: 30 ml Lamotrigine (Lamictal) 200 mg PO BID [facility] Last Admin: 02/16/18 20:06 Dose: 200 mg Levetiracetam (Keppra) 500 mg PO BID [facility] Last Admin: 02/16/18 20:05 Dose: 500 mg Naloxone HCl (Narcan Inj) 0.4 mg IV.PUSH UNSCH PRN PRN Reason: SEE LABEL COMMENTS Ondansetron HCl (Zofran Inj) 4 mg IV.PUSH Q6H PRN PRN Reason: NAUSEA OR VOMITING Last Admin: 02/16/18 08:17 Dose: 4 mg Oxycodone HCl (Roxicodone) 5 mg PO Q4H PRN PRN Reason: PAIN SCALE 3 TO 5 Oxycodone HCl (Roxicodone) 10 mg PO Q4H PRN PRN Reason: PAIN SCALE 6 TO 10 Last Admin: 02/16/18 17:17 Dose: 10 mg Pharmacy Profile Note (Vancomycin Consult Pharmacy) 1 each OTHER UNSCH PRN PRN Reason: Pharmacy to dose Senna/Docusate Sodium (Hanna-Colace) 1 tab PO BID [facility] Last Admin: 02/17/18 08:01 Dose: 1 tab Sennosides (Senokot) 17.2 mg PO Q12H PRN PRN Reason: Moderate Constipation Sertraline HCl (Zoloft) 150 mg PO DAILY [facility] Last Admin: 02/17/18 08:01 Dose: 150 mg Sodium Chloride (Ns Flush) 2 ml IV.FLUSH BID [facility] Last Admin: 02/16/18 20:05 Dose: 2 ml Sodium Chloride (Ns Flush) 2 ml IV.FLUSH PRN PRN PRN Reason: FLUSH AFTER USING IV ACCESS Zonisamide (Zonegran) 300 mg PO BID [facility] Last Admin: 02/16/18 20:05 Dose: 300 mg Allergies/Adverse Reactions: Allergies Allergy/AdvReac Type Severity Reaction Status Date / Time No Known Allergies Allergy Verified 02/12/18 14:55 Physical Exam Vital signs: Vital Signs 02/16/18 12:00 02/16/18 13:43 02/16/18 16:00 Temperature 98.3 F 98.0 F Pulse Rate 92 H 113 H 118 H Respiratory Rate 18 18 16 Blood Pressure 107/78 100/56 L Pulse Oximetry 96 96 02/16/18 20:00 02/16/18 20:13 02/16/18 23:06 Temperature 98 F 98 F Pulse Rate 93 H 102 H 127 H Respiratory Rate 18 16 22 Blood Pressure 114/68 125/83 Pulse Oximetry 97 98 02/17/18 00:06 02/17/18 01:06 02/17/18 03:00 Temperature 97.8 F 98.0 F 98.0 F Pulse Rate 108 H 105 H 108 H Respiratory Rate 18 18 16 Blood Pressure 111/67 110/61 112/71 Pulse Oximetry 95 94 L 94 L 02/17/18 04:00 02/17/18 06:06 02/17/18 07:45 Temperature 98.4 F 98.1 F Pulse Rate 105 H 105 H 102 H Respiratory Rate 19 18 16 Blood Pressure 113/74 114/61 Pulse Oximetry 94 L Intake & Output 02/16/18 02/17/18 02/17/18 18:59 06:59 18:59 Intake Total 1750 / 1750 1660 / 1660 Balance 1750 / 1750 1660 / 1660 Weight 62.1 kg Intake: IV 550 / 550 700 / 700 Zosyn 4.5 GM Premix 4.5 gm In 200 / 200 200 / 200 100 ml @ 300 mls/hr IV.SIG Q6H [facility] Rx#:[id number] Vancomycin Inj 1,000 MG In NS 250 / 250 500 / 500 Inj 250 ML @ 250 mls/hr IV.SIG Q12H [facility] Rx#:[id number] Keppra 1000 mg/100 mL Premix 100 / 100 100 ML @ 400 mls/hr IV.SIG Q12H [facility] Rx#:[id number] Oral 1200 / 1200 960 / 960 Other: # Voids 4 3 # Bowel Movements 1 - Routine Neurological Exam alert, oriented , speech/comprehension normal CN intact MOTOR 4/5 RUE proximally and distally. 5/5 LUE - Urinary Catheter Management Indwelling Urethral Catheter Cath placed during this visit: yes, but has since been removed by the nurse Reason for continuing: Hourly intake/output Insertion date: 02/11/18 Removal date: 02/12/18 Objective Laboratory Results - last 24 hr 02/17/18 02/17/18 04:30 07:24 Creatinine 0.85 Estimated GFR 80 L Vancomycin Trough 6.1 Review/Management - Review/Management Plan: continue asa continue same anticonvulsant medications ok form neurology standpoint to dc home when ok with primary surgery service.
[2018-02-17] MEDS: levETIRAcetam 500 MG Tablet PO SCH ×2 (11:20→21:58)
[2018-02-17] MEDS: lamoTRIgine 100 MG Tablet PO SCH ×2 (11:20→21:56)
[2018-02-17] MEDS: carBAMazepine 100 MG Chewable Tablets PO SCH ×2 (11:20→21:57)
[2018-02-17] MEDS: Sodium Chloride 0.9% 2 ML Flush BID IV.FLUSH SCH ×2 (11:22→21:59)
--- NOTE | 2018-02-17 11:44 | P.CONID ---
History of Present Illness Service: Infectious disease Consult date: 02/17/18 Requesting Physician: Anish Meneses Reason for Consult: Evaluate patient with infarcts in the right brain Primary Care Provider: Chris Hernandez MD Chief Complaint: s/p dog bite History of Present Illness: Patient seen and examined. Records reviewed. Patient is a 27-year-old female, brought into the hospital as a trauma alert. Patient apparently has known seizures, and she has not been taking her medication. She had a seizure at home and during the course of her seizure the dog attacked the patient and she sustained multiple bites on her neck and left side of the face. When EMS initially evaluated the patient she was apparently complaining of shortness of breath, and over the course of the evaluation she became lethargic, and started having some respiratory difficulty and required intubation. Patient had undergone surgery on admission, and had exploration of the right neck, ligation of branches of the jugular vein, irrigation of the neck , and placement of a drain. She had primary closure of the multiple bilateral facial and neck laceration. She was successfully extubated on February 12. She had been on Unasyn, and on February 13 she had some fevers up to 100.4. Her antibiotic was changed to Zosyn, and on the vancomycin was added. Her fevers have improved. She has had multiple imaging studies, and CT of the neck showed that there are some evidence of injury to the right ICA. MRI of the brain is showing evidence of acute/subacute infarcts. Patient felt also to have brachial plexopathy causing the right-sided weakness in her RUE. Patient states she has some mild difficulty in swallowing but has not had any choking spells. She is currently on IV vancomycin and Zosyn. Infectious disease consultation has been requested to evaluate the patient Review of Systems Constitutional: Reports headache(s), Reports lack of energy, Denies chills, Denies fever(s) Eyes: Denies discharge, Denies dry eyes Ears, Nose, Mouth, and Throat: Reports difficulty swallowing, Reports dizziness , Reports nasal trauma, Reports neck pain, Denies dental pain, Denies nasal discharge, Denies pain with swallowing, Denies sore throat, Denies tongue swelling Cardiovascular: Denies chest pain, Denies shortness of breath Respiratory: Denies chest congestion, Denies cough, Denies shortness of breath Gastrointestinal: Reports difficulty swallowing, Reports nausea, Denies abdominal pain, Denies loose stools, Denies pain with swallowing, Denies vomiting Genitourinary: Denies difficulty urinating, Denies painful urination Musculoskeletal: Reports neck pain, Denies joint pain, Denies joint swelling Skin/Breast: Reports wounds Neurologic: Reports dizziness, Reports localized weakness, Reports convulsions PMFSH - History History Provided By: Patient, Family Member - Medical History Medical History: Medical History (Last Reviewed 02/17/18 @ 11:35 by Nimisha Good MD) Cholecystectomy planned Seizures - Tobacco History Second Hand Smoke Exposure: Yes Tobacco Use In Past 30 Days: Yes Smoking Status: Heavy tobacco smoker Tobacco Type: Cigarettes - Alcohol History How Often Do You Have a Drink Containing Alcohol: Never - Substance Use History Substance History: Past History - Substance Use Type Alcohol Status: Sustained Remission Route Used: By Mouth Reason for Use: Socialization Comment: Partyed - Immunization History Tetanus Immunization: Unsure Hx Influenza Vaccine This Season: No Medications and Allergies Active Medications: Active Medications Al Hydroxide/Mg Hydroxide (Milk Of Yuridia Schmidt) 30 ml PO Q12H PRN PRN Reason: Mild Constipation Albuterol (Duoneb Neb (Prn)) 1 ampul NEB Q2HR NEB PRN PRN Reason: SHORTNESS OF BREATH Albuterol (Duoneb Neb (Valdo)) 1 ampul NEB Q6HR WHILE AWAKE NEB [facility] Last Admin: 02/17/18 07:43 Dose: 1 ampul Aspirin (Aspirin) 325 mg PO DAILY [facility] Last Admin: 02/17/18 08:00 Dose: 325 mg Bacitracin (Baciguent Oint) 1 applicatio TOPICAL BID [facility] Last Admin: 02/17/18 11:22 Dose: 1 applicatio Bisacodyl (Dulcolax Supp) 10 mg RECTAL DAILY PRN PRN Reason: SEVERE CONSITIPATION Carbamazepine (Tegretol Chewable) 300 mg PO BID [facility] Last Admin: 02/17/18 11:20 Dose: 300 mg Enoxaparin Sodium (Lovenox Inj) 40 mg SQ Q24H [facility] Last Admin: 02/16/18 20:05 Dose: 40 mg Piperacillin/Tazobactam/Dextrose (Zosyn 4.5 Gm Premix) 4.5 gm in 100 mls @ 300 mls/hr IV.SIG Q6H [facility] Last Admin: 02/17/18 05:52 Dose: 100 mls/hr Vancomycin HCl 1,000 mg/ (Sodium Chloride) 250 mls @ 250 mls/hr IV.SIG Q8H [facility] Lactulose (Lactulose Liq) 30 ml PO DAILY PRN PRN Reason: SEVERE CONSITIPATION Lactulose (Lactulose Liq) 30 ml PO DAILY [facility] Last Admin: 02/17/18 08:02 Dose: 30 ml Lamotrigine (Lamictal) 200 mg PO BID [facility] Last Admin: 02/17/18 11:20 Dose: 200 mg Levetiracetam (Keppra) 500 mg PO BID [facility] Last Admin: 02/17/18 11:20 Dose: 500 mg Miscellaneous Information ([facility] Ordered Lab Info) 0 each OTHER ONCE ONE Stop: 02/18/18 12:46 Naloxone HCl (Narcan Inj) 0.4 mg IV.PUSH UNSCH PRN PRN Reason: SEE LABEL COMMENTS Ondansetron HCl (Zofran Inj) 4 mg IV.PUSH Q6H PRN PRN Reason: NAUSEA OR VOMITING Last Admin: 02/16/18 08:17 Dose: 4 mg Oxycodone HCl (Roxicodone) 5 mg PO Q4H PRN PRN Reason: PAIN SCALE 3 TO 5 Oxycodone HCl (Roxicodone) 10 mg PO Q4H PRN PRN Reason: PAIN SCALE 6 TO 10 Last Admin: 02/16/18 17:17 Dose: 10 mg Pharmacy Profile Note (Vancomycin Consult Pharmacy) 1 each OTHER UNSCH PRN PRN Reason: Pharmacy to dose Senna/Docusate Sodium (Hanna-Colace) 1 tab PO BID [facility] Last Admin: 02/17/18 08:01 Dose: 1 tab Sennosides (Senokot) 17.2 mg PO Q12H PRN PRN Reason: Moderate Constipation Sertraline HCl (Zoloft) 150 mg PO DAILY [facility] Last Admin: 02/17/18 08:01 Dose: 150 mg Sodium Chloride (Ns Flush) 2 ml IV.FLUSH BID [facility] Last Admin: 02/17/18 11:22 Dose: Not Given Sodium Chloride (Ns Flush) 2 ml IV.FLUSH PRN PRN PRN Reason: FLUSH AFTER USING IV ACCESS Zonisamide (Zonegran) 300 mg PO BID [facility] Last Admin: 02/17/18 11:22 Dose: 300 mg Allergies Allergy/AdvReac Type Severity Reaction Status Date / Time No Known Allergies Allergy Verified 02/12/18 14:55 Home Medications Medication Instructions Recorded Confirmed Type lamotrigine 1 tab PO BID 02/13/18 02/13/18 History sertraline 150 mg PO QAM 02/13/18 02/13/18 History zonisamide 3 cap PO BID 02/13/18 02/13/18 History carbamazepine 300 mg PO BID 02/14/18 02/14/18 History Exam Vital signs: Vital Signs 02/16/18 12:00 02/16/18 13:43 02/16/18 16:00 Temperature 98.3 F 98.0 F Pulse Rate 92 H 113 H 118 H Respiratory Rate 18 18 16 Blood Pressure 107/78 100/56 L Pulse Oximetry 96 96 02/16/18 20:00 02/16/18 20:13 02/16/18 23:06 Temperature 98 F 98 F Pulse Rate 93 H 102 H 127 H Respiratory Rate 18 16 22 Blood Pressure 114/68 125/83 Pulse Oximetry 97 98 02/17/18 00:06 02/17/18 01:06 02/17/18 03:00 Temperature 97.8 F 98.0 F 98.0 F Pulse Rate 108 H 105 H 108 H Respiratory Rate 18 18 16 Blood Pressure 111/67 110/61 112/71 Pulse Oximetry 95 94 L 94 L 02/17/18 04:00 02/17/18 06:06 02/17/18 07:45 Temperature 98.4 F 98.1 F Pulse Rate 105 H 105 H 102 H Respiratory Rate 19 18 16 Blood Pressure 113/74 114/61 Pulse Oximetry 94 L 02/17/18 08:00 Temperature 97.6 F Pulse Rate 89 Respiratory Rate 16 Blood Pressure 121/64 Pulse Oximetry 92 L Intake & Output 02/16/18 02/17/18 02/17/18 18:59 06:59 18:59 Intake Total 1750 / 1750 1660 / 1660 Balance 1750 / 1750 1660 / 1660 Weight 62.1 kg Intake: IV 550 / 550 700 / 700 Zosyn 4.5 GM Premix 4.5 gm In 200 / 200 200 / 200 100 ml @ 300 mls/hr IV.SIG Q6H [facility] Rx#:[id number] Vancomycin Inj 1,000 MG In NS 250 / 250 500 / 500 Inj 250 ML @ 250 mls/hr IV.SIG Q12H [facility] Rx#:[id number] Keppra 1000 mg/100 mL Premix 100 / 100 100 ML @ 400 mls/hr IV.SIG Q12H [facility] Rx#:[id number] Oral 1200 / 1200 960 / 960 Other: # Voids 4 3 # Bowel Movements 1 Narrative: Physical examination GENERAL: Patient is a well-nourished, well-developed young female, awake and alert, not in respiratory distress. SKIN: Cool and dry. No generalized rash. Has dry abarsions on L side of neck , and dry wounds with sutures in oplace, no redness noted. No evidence of embolic lesions. HEAD: Atraumatic. Normocephalic. No temporal wasting, or tenderness. EYES: [place] conjunctiva. Has scleral hemorrhage on L eye. EARS, NOSE AND THROAT: Nose without bleeding or purulent nasal discharge. No sinus tenderness. Mucous membranes pink and moist. Has some white coating on her tongues. NECK: Has sutured lacerations on R side of neck with sutures in place, there is some mild erythema and induration around the area, with tenderness. Supple. L side with multiple dry wounds and small sutured lacerations including to the L lower cheek CARDIOVASCULAR: Regular rate and rhythm. No murmurs, rubs or gallops heard RESPIRATORY: Clear to auscultation. Breath sounds equal bilaterally. No rales , wheezing or rhonchi ABDOMEN: Soft, non-tender, nondistended. Bowel sounds present and normoactive. No guarding. No rebound. No organomegaly. EXTREMITIES: No clubbing, cyanosis, or edema.No joint effusion, has good ROM. No calf tenderness. Well perfused and warm. NEUROLOGICAL: Awake and alert. NO facial asymmetry noted, tongue midline. Weakness in RUE, about 3-4/5 compared to the LUE. Symmterical motor in BLE. No Babinski, no clonus PSYCHIATRIC: Flat affect, calm and cooperative. LINE: No evidence of infection Results - Labs CBC & Chem 7: 02/16/18 04:18 02/17/18 07:24 Labs: Laboratory Results - last 24 hr 12/31/18 12/31/18 12/31/18 04:30 07:24 07:24 Creatinine 0.85 Estimated GFR 80 L Vancomycin Trough 6.1 Carbamazepine 9.7 Assessment and Plan - Plan Impression Acute/subacute infarcts on brain MRI, possibly due to the injuries to her neck from dog bite, more on R likely due to ARAMIS injury Multiple dog bites to neck and face, severe on R Low grade fever resolved, likely due to ongoing inflammation in her neck as a result of the dog bite Seizures Recommendation Continue Zosyn OK to D/C Vanco Get 2 BC Follow C/S MOnitor progress I will determine course of Abx once work-up completed I will follow along with you Thank you for this consultation
--- NOTE | 2018-02-17 12:44 | ECHRPT ---
Indication: SEPSIS POSS ENDOCARDITIS CONCLUSIONS Normal left ventricular size. Wall thickness is normal. The left ventricular systolic function is normal with an estimated ejection fraction in the range of 60-65%. Puzfb-[id number] mitral valve regurgitation. There is trace tricuspid valve regurgitation. The estimated pulmonary arterial pressure is 26 mmHg. BP: / HR: Rhythm: Sinus MEASUREMENTS (Male / Female) Normal Values Technical Quality:Fair 2D ECHO LV Diastolic Diameter PLAX 4.3 cm 4.2 - 5.9 / 3.9 - 5.3 cm LV Systolic Diameter PLAX 3.2 cm IVS Diastolic Thickness 0.8 cm 0.6 - 1.0 / 0.6 - 0.9 cm LVPW Diastolic Thickness 0.7 cm 0.6 - 1.0 / 0.6 - 0.9 cm LV Relative Wall Thickness 0.3 RV Internal Dim ED PLAX 2.1 cm LVOT Diameter 1.8 cm Aortic Root Diameter 2.7 cm LA Systolic Diameter LX 3.0 cm 3.0 - 4.0 / 2.7 - 3.8 cm DOPPLER AV Peak Velocity 129.0 cm/s AV Peak Gradient 6.7 mmHg LVOT Peak Velocity 90.8 cm/s LVOT Peak Gradient 3.3 mmHg AV Area Cont Eq pk 1.8 cm Mitral E Point Velocity 84.4 cm/s Mitral A Point Velocity 48.9 cm/s Mitral E to A Ratio 1.7 LV E' Lateral Velocity 17.2 cm/s Mitral E to LV E' Lateral Ratio 4.9 LV E' Septal Velocity 14.7 cm/s Mitral E to LV E' Septal Ratio 5.7 TR Peak Velocity 200.0 cm/s TR Peak Gradient 16.0 mmHg Right Atrial Pressure 10.0 mmHg Pulmonary Artery Systolic Pressu 26.0 mmHg Right Ventricular Systolic Press 26.0 mmHg PV Peak Velocity 115.0 cm/s PV Peak Gradient 5.3 mmHg FINDINGS LEFT VENTRICLE Normal left ventricular size. Wall thickness is normal. The left ventricular systolic function is normal with an estimated ejection fraction in the range of 60-65%. RIGHT VENTRICLE Normal right ventricular size and systolic function. LEFT ATRIUM The left atrial size is normal. RIGHT ATRIUM The right atrial size is normal. ATRIAL SEPTUM Normal atrial septal thickness without atrial level shunting by limited color doppler interrogation. AORTA The aortic root and proximal ascending aorta are normal in size on limited imaging. MITRAL VALVE Yxkmt-sj-akuz mitral valve regurgitation. AORTIC VALVE Trileaflet aortic valve. No aortic valve stenosis or regurgitation. TRICUSPID VALVE There is trace tricuspid valve regurgitation. The estimated pulmonary arterial pressure is 26 mmHg. PULMONARY VALVE No pulmonary valve regurgitation or stenosis. VESSELS The inferior vena cava is normal in size. PERICARDIUM No pericardial effusion. Mohan Mclean MD, FACC (Electronically Signed) Final Date:17 February 2018 12:43
[2018-02-17] MEDS ORDERED: Vancomycin Inj 1,000 MG in Sodium Chlor 0.9% Inj 250 ML IV.SIG SCH (13:00)
--- NOTE | 2018-02-17 15:28 | P.PN ---
Subjective Interval history: Trauma PTD: 6 Patient lying in bed asleep. Visitor in bed with patient, also asleep. Arouses easily to trauma team in room for morning rounds. Patient offers no complaints. Physical Exam Vital signs: Vital Signs 02/16/18 16:00 02/16/18 20:00 02/16/18 20:13 Temperature 98.0 F 98 F Pulse Rate 118 H 93 H 102 H Respiratory Rate 16 18 16 Blood Pressure 100/56 L 114/68 Pulse Oximetry 96 97 02/16/18 23:06 02/17/18 00:06 02/17/18 01:06 Temperature 98 F 97.8 F 98.0 F Pulse Rate 127 H 108 H 105 H Respiratory Rate 22 18 18 Blood Pressure 125/83 111/67 110/61 Pulse Oximetry 98 95 94 L 02/17/18 03:00 02/17/18 04:00 02/17/18 06:06 Temperature 98.0 F 98.4 F 98.1 F Pulse Rate 108 H 105 H 105 H Respiratory Rate 16 19 18 Blood Pressure 112/71 113/74 114/61 Pulse Oximetry 94 L 94 L 02/17/18 07:45 02/17/18 08:00 02/17/18 12:00 Temperature 97.6 F 97.8 F Pulse Rate 102 H 89 99 H Respiratory Rate 16 16 15 Blood Pressure 121/64 118/63 Pulse Oximetry 92 L 91 L 02/17/18 12:10 Temperature Pulse Rate 99 H Respiratory Rate 18 Blood Pressure Pulse Oximetry Intake & Output 02/16/18 02/17/18 02/17/18 18:59 06:59 18:59 Intake Total 1750 / 1750 1760 / 1760 Balance 1750 / 1750 1760 / 1760 Weight 62.1 kg Intake: IV 550 / 550 800 / 800 Zosyn 4.5 GM Premix 4.5 gm In 200 / 200 300 / 300 100 ml @ 300 mls/hr IV.SIG Q6H [facility] Rx#:[id number] Vancomycin Inj 1,000 MG In NS 250 / 250 500 / 500 Inj 250 ML @ 250 mls/hr IV.SIG Q12H [facility] Rx#:[id number] Keppra 1000 mg/100 mL Premix 100 / 100 100 ML @ 400 mls/hr IV.SIG Q12H [facility] Rx#:[id number] Oral 1200 / 1200 960 / 960 Other: # Voids 4 3 # Bowel Movements 1 Narrative: GENERAL: This is a 27-year-old female lying in bed. No distress noted. SKIN: Warm and dry. HEAD: Atraumatic. Normocephalic. EYES: PERRLA ENT: No nasal bleeding or discharge. Mucous membranes pink and moist. NECK: Trachea midline. No JVD. lacerations noted to right neck with sutures in place. DAVE. Slight swelling and scattered erythema noted. Scattered lacerations noted to left side of neck with few sutures in place. DAVE. No drainage noted. CARDIOVASCULAR: Regular rate and rhythm. RESPIRATORY: No accessory muscle use. Lungs are clear to auscultation. Breath sounds equal bilaterally. No distress or dyspnea. GASTROINTESTINAL: BS + x 4 quads. Abdomen soft, non-tender, nondistended. MUSCULOSKELETAL: Extremities without cyanosis, or edema. + peripheral pulses x 4 extremities. Warm with good capillary refill and sensation. MAEW. NEUROLOGICAL: Awake and alert. Normal speech and pattern. - Urinary Catheter Management Indwelling Urethral Catheter Cath placed during this visit: yes, but has since been removed by the nurse Reason for continuing: Hourly intake/output Insertion date: 02/11/18 Removal date: 02/12/18 Results - Labs CBC & Chem 7: 02/16/18 04:18 02/17/18 07:24 Laboratory Results - last 24 hr 02/17/18 02/17/18 02/17/18 04:30 07:24 07:24 Creatinine 0.85 Estimated GFR 80 L Vancomycin Trough 6.1 Carbamazepine 9.7 Assessment and Plan - Assessment (1) Dog bite of multiple sites of scalp and neck Code(s): S01.05XA - Open bite of scalp, initial encounter; S11.95XA - Open bite of unspecified part of neck, initial encounter; W54.0XXA - Bitten by dog, initial encounter Status: Acute (2) Dog bite of face Code(s): S01.85XA - Open bite of other part of head, initial encounter; W54.0XXA - Bitten by dog, initial encounter Status: Acute - Plan YSLETA DEL SUR: This is a 27-year-old female who reportedly had a seizure at home in the presence of several pit bulls. 1 of the put bowls became excited and bit the patient on the right side of her face and left neck. Initially the patient was awake and alert complaining of shortness of breath, then she began to deteriorate. She became lethargic and was gurgling blood, so she was intubated by EMS. INJURIES: BILAT face lacerations/dog bites Puncture wounds BILAT neck Extensive anterior cervical soft tissue injury with diffuse subcutaneous emphysema extending to near the skull base Suspected RIGHT thyroid cartilage injury Mild to moderate narrowing of the distal RIGHT common carotid artery ?Aspiration PMHx: Epilepsy Procedures: 02/11: Intubated 02/11: Exploration of the right neck with ligation of various branches of the jugular vein and irrigation of the neck tissues with drain placement. 02/11: Primary closure of multiple bilateral face and neck lacerations (>10cm) 02/12: Extubated Consults: Plastics. Neurology. Infectious disease. Neuropsych. Case management. Diet: Regular diet. Tolerating po diet. Encourage good po intake with each meal. Pulmonary: Encourage good pulmonary toileting. IS and Acapella at bedside and pt encouraged to use. Rationale for use explained to patient, and verbalized understanding. Duo nebs as needed PAIN Management: Oxycodone 5-10 mg every 4 hours Activity: OOB. PT and OT ordered. GI prophylaxis: Not indicated at this time Bowel regimen: Hanna-colace. MOM PRN. Lactulose. Senna PRN. Bisacodyl PRN. LBM: 02/17 DVT prophylaxis: Mechanical VTE with SCDs. Chemical management with Lovenox 40 mg QD. ASA 325 mg daily. DC Planning: Case management consulted for assistance with final discharge disposition. Emotional support provided to patient and visitor at bedside and plan of care discussed. Discussed with RN at bedside. Discussed pt condition and plan of care with collaborating trauma surgeon. Patient is hemodynamically stable and being managed on the med/surg floor. The trauma team will round each day, and evaluate plan of care on a daily basis. Puncture wounds/dog bites BILAT neck ?Aspiration Respiratory failure in trauma 02/11: Intubated 02/11: Exploration of the right neck with ligation of various branches of the jugular vein and irrigation of the neck tissues with drain placement. 02/11: Primary closure of multiple bilateral face and neck lacerations (>10cm) 02/12: Extubated Scans: 02/15: MRI brain -right small embolic infarcts or inflammatory/infectious disease. 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 No root avulsion. But stable. 02/15: Brachial plexus MRI- Extensive soft tissue inflammation extending from the neck into the upper mediastinum. R prevertebral muscular inflammation 02/12: EEG- neg sz Supportive care Aggressive pulmonary toileting Duo nebs as needed Pain management Seizure precautions Seizure prophylaxis -Keppra along with home medications Encourage out of bed PT and OT ordered Wound care: Apply Bacitracin BID to neck wounds and leave CLIENT DELIVERY SPECIALIST Infectious disease consulted and assisted in management and care IV Abx: Zosyn (DC Vanco today by ID) 02/17: Blood culture pending Afebrile Labs stable Bowel regimen ASA 325mg QD Lovenox 40mg QD Epilepsy RIGHT parietal CVA Neurology consulted and assisting in management and care 02/15: MRI brain -right small embolic infarcts or inflammatory/infectious disease. 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 No root avulsion. But stable. 02/15: Brachial plexus MRI- Extensive soft tissue inflammation extending from the neck into the upper mediastinum. R prevertebral muscular inflammation 02/12: EEG- neg sz Seizure precautions -Keppra Home seizure regimen resumed: Lamictal 200 mg BID. Tegretol 300 mg BID. Zonagram 300 mg BID. Neuropsychology consulted Echocardiogram pending Neurology has cleared the patient for discharge - Attending Attestation The exam, history, and the medical decision-making described in the above note were completed with the assistance of the mid-level provider. I reviewed and agree with the findings presented. I attest that I had a [id number] encounter with the patient on the same day, and personally performed and documented my assessment and findings in the medical record. s/p dog attack Neuro exam stable, GCS 15, alert and awake right neck with minimal swelling, no obvious infection consult ID for input/eval. prior to DC continue PT eval and treat counseled pt and family about home safety and safe discharge plan (1) Dog bite of multiple sites of scalp and neck Qualifiers: Encounter type: initial encounter Qualified Code(s): S01.05XA - Open bite of scalp, initial encounter; S11.95XA - Open bite of unspecified part of neck, initial encounter; W54.0XXA - Bitten by dog, initial encounter (2) Dog bite of face Qualifiers: Encounter type: initial encounter Qualified Code(s): S01.85XA - Open bite of other part of head, initial encounter; W54.0XXA - Bitten by dog, initial encounter
[2018-02-17] MEDS: Enoxaparin Inj 40 MG/0.4 ML Syringe SQ SCH (21:59)
[2018-02-18] MEDS: Piperacil/Tazo 4.5 GM Premix 4.5 GM/100 ML BAG IV.SIG SCH ×4 (00:52→17:42)
[2018-02-18] MEDS: carBAMazepine 100 MG Chewable Tablets PO SCH ×2 (08:34→22:38)
[2018-02-18] MEDS: Aspirin 325 MG Tablet PO SCH (08:34)
[2018-02-18] MEDS: levETIRAcetam 500 MG Tablet PO SCH ×2 (08:35→22:39)
[2018-02-18] MEDS: Sertraline 50 MG Tablet PO SCH (08:35)
[2018-02-18] MEDS: Senna/Docusate Sodium 8.6/50 MG Tablet PO SCH ×2 (08:35→22:38)
[2018-02-18] MEDS: lamoTRIgine 100 MG Tablet PO SCH ×2 (08:38→22:38)
[2018-02-18] MEDS: Sodium Chloride 0.9% 2 ML Flush BID IV.FLUSH SCH ×2 (09:00→22:28)
--- NOTE | 2018-02-18 09:49 | P.PN ---
Subjective Interval history: Trauma PTD: 7 Patient sitting up in bed, eating morning meal. No distress noted. Patient concerned with bleeding from posterior scalp. "It bled a lot after I brushed my hair. He [points to visitor] freaked out." Patient states that her pain is "okay." Physical Exam Vital signs: Vital Signs 02/17/18 12:00 02/17/18 12:10 02/17/18 16:00 Temperature 97.8 F 97.6 F Pulse Rate 99 H 99 H 89 Respiratory Rate 15 18 16 Blood Pressure 118/63 96/53 L Pulse Oximetry 91 L 91 L 02/17/18 20:00 02/17/18 21:02 02/17/18 22:06 Temperature 98.8 F 98.8 F Pulse Rate 103 H 114 H 103 H Respiratory Rate 20 15 20 Blood Pressure 111/66 111/66 Pulse Oximetry 96 96 02/18/18 00:00 02/18/18 02:06 02/18/18 08:00 Temperature 98.1 F 98.1 F 98.4 F Pulse Rate 98 H 98 H 83 Respiratory Rate 18 18 16 Blood Pressure 113/69 113/69 124/58 L Pulse Oximetry 96 96 90 L Intake & Output 02/17/18 02/18/18 02/18/18 18:59 06:59 18:59 Intake Total 100 / 100 920 / 920 Balance 100 / 100 920 / 920 Weight 59.3 kg Intake: IV 100 / 100 200 / 200 Zosyn 4.5 GM Premix 4.5 gm In 100 / 100 200 / 200 100 ml @ 300 mls/hr IV.SIG Q6H [facility] Rx#:[id number] Oral 720 / 720 Other: # Voids 2 Date of Last Bowel Movement 02/17/18 # Bowel Movements 1 Narrative: GENERAL: This is a 27-year-old female lying in bed. No distress noted. SKIN: Warm and dry. HEAD: Atraumatic. Normocephalic. Posterior scalp with small wound -appears fresh, as if a scab was freshly removed. No active bleeding. EYES: PERRLA ENT: No nasal bleeding or discharge. Mucous membranes pink and moist. NECK: Trachea midline. No JVD. Lacerations noted to right neck with sutures in place. [employer]. Slight swelling and scattered erythema noted. Scattered lacerations noted to left side of neck. [employer]. No drainage noted. CARDIOVASCULAR: Regular rate and rhythm. RESPIRATORY: No accessory muscle use. Lungs are clear to auscultation. Breath sounds equal bilaterally. No distress or dyspnea. GASTROINTESTINAL: BS + x 4 quads. Abdomen soft, non-tender, nondistended. MUSCULOSKELETAL: Extremities without cyanosis, or edema. + peripheral pulses x 4 extremities. Warm with good capillary refill and sensation. MAEW. NEUROLOGICAL: Awake and alert. Normal speech and pattern, however voice remains raspy - Urinary Catheter Management Indwelling Urethral Catheter Cath placed during this visit: yes, but has since been removed by the nurse Reason for continuing: Hourly intake/output Insertion date: 02/11/18 Removal date: 02/12/18 Results - Labs CBC & Chem 7: 02/16/18 04:18 02/17/18 07:24 Assessment and Plan - Assessment (1) Dog bite of multiple sites of scalp and neck Code(s): S01.05XA - Open bite of scalp, initial encounter; S11.95XA - Open bite of unspecified part of neck, initial encounter; W54.0XXA - Bitten by dog, initial encounter Status: Acute (2) Dog bite of face Code(s): S01.85XA - Open bite of other part of head, initial encounter; W54.0XXA - Bitten by dog, initial encounter Status: Acute - Plan [place]: This is a 27-year-old female who reportedly had a seizure at home in the presence of several pit bulls. 1 of the put bowls became excited and bit the patient on the right side of her face and left neck. Initially the patient was awake and alert complaining of shortness of breath, then she began to deteriorate. She became lethargic and was gurgling blood, so she was intubated by EMS. INJURIES: BILAT face lacerations/dog bites Puncture wounds BILAT neck Extensive anterior cervical soft tissue injury with diffuse subcutaneous emphysema extending to near the skull base Suspected RIGHT thyroid cartilage injury Mild to moderate narrowing of the distal RIGHT common carotid artery ?Aspiration PMHx: Epilepsy Procedures: 02/11: Intubated 02/11: Exploration of the right neck with ligation of various branches of the jugular vein and irrigation of the neck tissues with drain placement. 02/11: Primary closure of multiple bilateral face and neck lacerations (>10cm) 02/12: Extubated Consults: Plastics. Neurology. Infectious disease. Neuropsych. Case management. Diet: Regular diet. Tolerating po diet. Encourage good po intake with each meal. Pulmonary: Encourage good pulmonary toileting. IS and Acapella at bedside and pt encouraged to use. Rationale for use explained to patient, and verbalized understanding. Duo nebs as needed PAIN Management: Oxycodone 5-10 mg every 4 hours Activity: OOB. PT and OT ordered. GI prophylaxis: Not indicated at this time Bowel regimen: Hanna-colace. MOM PRN. Lactulose. Senna PRN. Bisacodyl PRN. LBM: 02/17 DVT prophylaxis: Mechanical VTE with SCDs. Chemical management with Lovenox 40 mg QD. ASA 325 mg daily. DC Planning: Case management consulted for assistance with final discharge disposition. Emotional support provided to patient and visitor at bedside and plan of care discussed. Discussed with RN at bedside. Discussed pt condition and plan of care with collaborating trauma surgeon. Patient is hemodynamically stable and being managed on the med/surg floor. The trauma team will round each day, and evaluate plan of care on a daily basis. Puncture wounds/dog bites BILAT neck ?Aspiration Respiratory failure in trauma 02/11: Intubated 02/11: Exploration of the right neck with ligation of various branches of the jugular vein and irrigation of the neck tissues with drain placement. 02/11: Primary closure of multiple bilateral face and neck lacerations (>10cm) 02/12: Extubated Scans: 02/15: MRI brain -right small embolic infarcts or inflammatory/infectious disease. 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 No root avulsion. But stable. 02/15: Brachial plexus MRI- Extensive soft tissue inflammation extending from the neck into the upper mediastinum. R prevertebral muscular inflammation 02/12: EEG- neg sz Supportive care Aggressive pulmonary toileting Duo nebs as needed Pain management Seizure precautions Seizure prophylaxis -Keppra along with home medications Encourage out of bed PT and OT ordered Wound care: Apply Bacitracin BID to neck wounds and leave DAVE Infectious disease consulted and assisted in management and care IV Abx: Zosyn (DC Vanco by ID) 02/17: Blood culture pending Afebrile Labs stable Bowel regimen ASA 325mg QD Lovenox 40mg QD Bleeding from posterior scalp Appears as a scab was removed as she was brushing her hair. No current bleeding noted Plan for healing for secondary intention Epilepsy RIGHT parietal CVA Neurology consulted and assisting in management and care 02/15: MRI brain -right small embolic infarcts or inflammatory/infectious disease. 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 No root avulsion. But stable. 02/15: Brachial plexus MRI- Extensive soft tissue inflammation extending from the neck into the upper mediastinum. R prevertebral muscular inflammation 02/12: EEG- neg sz Seizure precautions -Keppra Home seizure regimen resumed: Lamictal 200 mg BID. Tegretol 300 mg BID. Zonagram 300 mg BID. Neuropsychology consulted Echocardiogram pending Neurology has cleared the patient for discharge (1) Dog bite of multiple sites of scalp and neck Qualifiers: Encounter type: initial encounter Qualified Code(s): S01.05XA - Open bite of scalp, initial encounter; S11.95XA - Open bite of unspecified part of neck, initial encounter; W54.0XXA - Bitten by dog, initial encounter (2) Dog bite of face Qualifiers: Encounter type: initial encounter Qualified Code(s): S01.85XA - Open bite of other part of head, initial encounter; W54.0XXA - Bitten by dog, initial encounter
--- NOTE | 2018-02-18 10:58 | P.PN ---
Subjective Interval history: Patient reports finding a loose piece of skin in her posterior scalp after brushing hair and taking shower. She also reports a mechanical fall ambulating to the shower where she struck her nose. She reports some nasal congestion today. She denies any pain in her neck but does report numbness over her bilateral neck as well as decreased mobility of her right upper extremity. Physical Exam Vital signs: Vital Signs 02/17/18 12:00 02/17/18 12:10 02/17/18 16:00 Temperature 97.8 F 97.6 F Pulse Rate 99 H 99 H 89 Respiratory Rate 15 18 16 Blood Pressure 118/63 96/53 L Pulse Oximetry 91 L 91 L 02/17/18 20:00 02/17/18 21:02 02/17/18 22:06 Temperature 98.8 F 98.8 F Pulse Rate 103 H 114 H 103 H Respiratory Rate 20 15 20 Blood Pressure 111/66 111/66 Pulse Oximetry 96 96 02/18/18 00:00 02/18/18 02:06 02/18/18 08:00 Temperature 98.1 F 98.1 F 98.4 F Pulse Rate 98 H 98 H 83 Respiratory Rate 18 18 16 Blood Pressure 113/69 113/69 124/58 L Pulse Oximetry 96 96 90 L Intake & Output 02/17/18 02/18/18 02/18/18 18:59 06:59 18:59 Intake Total 100 / 100 920 / 920 Balance 100 / 100 920 / 920 Weight 59.3 kg Intake: IV 100 / 100 200 / 200 Zosyn 4.5 GM Premix 4.5 gm In 100 / 100 200 / 200 100 ml @ 300 mls/hr IV.SIG Q6H [facility] Rx#:[id number] Oral 720 / 720 Other: # Voids 2 Date of Last Bowel Movement 02/17/18 # Bowel Movements 1 Narrative: General: Awake, following commands. Neurological: CNV and CNVII intact bilaterally. Decreased sensation over bilateral neck and left posterior auricular region. HEENT: Head/Face: Repaired lacerations of the bilateral neck and face, sutures in place , hemostatic, no drainage appreciated from neck wounds. Edema over left preauricular region, no overlying erythema of the skin, mildly fluctuant. Hemorrhagic crusting over incisions. Posterior scalp with 1cm laceration with serous fluid. 2mm laceration over nasal bridge, hemostatic, band-aid in place. Left subconjunctival hemorrhage. Cardiovascular: Regular rate Pulmonary: Normal work of breathing on room air Abdomen: Soft, non-distended. Extremities: Warm, well perfused. Decreased strength in RUE. - Urinary Catheter Management Indwelling Urethral Catheter Cath placed during this visit: yes, but has since been removed by the nurse Reason for continuing: Hourly intake/output Insertion date: 02/11/18 Removal date: 02/12/18 Results - Labs CBC & Chem 7: 02/16/18 04:18 02/17/18 07:24 Assessment and Plan - Assessment (1) Dog bite of face Code(s): S01.85XA - Open bite of other part of head, initial encounter; W54.0XXA - Bitten by dog, initial encounter Status: Acute (2) Dog bite of multiple sites of scalp and neck Code(s): S01.05XA - Open bite of scalp, initial encounter; S11.95XA - Open bite of unspecified part of neck, initial encounter; W54.0XXA - Bitten by dog, initial encounter Status: Acute - Plan 27 y/o F with a history of seizure disorder who suffered a dog bite injury with multiple lacerations to the bilateral neck and face. Patient is now s/p exploration of the right neck and primary closure of bilateral neck and face lacerations on 02/11/18. Edematous left pre-auricular region likely consistent with seroma or hematoma formation, would observe at the current time, no erythema of the overlying skin indicating infection. Posterior scalp laceration would elect to allow to heal by secondary intention. Recommendations: - Patient may leave lacerations open to air. Please clean hemorrhagic crusting with 3 part normal saline/1 part hydrogen peroxide mixture to prevent scarring. Do not submerge incision for at least two weeks. OK to shower but do not direct shower stream to neck. - Wet-to-dry dressings to posterior scalp laceration while inpatient. - Defer antibiotic management to infectious disease service. - Pain management per primary service. - Patient to follow-up 1 week after discharge in office with me ([facility], [address] [place] [id number], [phone]) - Cleared for discharge from a maxillofacial standpoint. Thank you for this consultation. Please do not hesitate to contact me with any questions or concerns at [phone]. Tee Severino DDS, (1) Dog bite of face Qualifiers: Encounter type: initial encounter Qualified Code(s): S01.85XA - Open bite of other part of head, initial encounter; W54.0XXA - Bitten by dog, initial encounter (2) Dog bite of multiple sites of scalp and neck Qualifiers: Encounter type: initial encounter Qualified Code(s): S01.05XA - Open bite of scalp, initial encounter; S11.95XA - Open bite of unspecified part of neck, initial encounter; W54.0XXA - Bitten by dog, initial encounter
--- NOTE | 2018-02-18 12:44 | P.PNID ---
Subjective Remarks: Patient is a 27-year-old female, brought into the hospital as a trauma alert. Patient apparently has known seizures, and she has not been taking her medication. She had a seizure at home and during the course of her seizure the dog attacked the patient and she sustained multiple bites on her neck and left side of the face. When EMS initially evaluated the patient she was apparently complaining of shortness of breath, and over the course of the evaluation she became lethargic, and started having some respiratory difficulty and required intubation. Patient had undergone surgery on admission, and had exploration of the right neck, ligation of branches of the jugular vein, irrigation of the neck , and placement of a drain. She had primary closure of the multiple bilateral facial and neck laceration. She was successfully extubated on February 12. She had been on Unasyn, and on February 13 she had some fevers up to 100.4. Her antibiotic was changed to Zosyn, and on the vancomycin was added. Her fevers have improved. She has had multiple imaging studies, and CT of the neck showed that there are some evidence of injury to the right ICA. MRI of the brain is showing evidence of acute/subacute infarcts. Patient felt also to have brachial plexopathy causing the right-sided weakness in her RUE. Patient states she has some mild difficulty in swallowing but has not had any choking spells. She is currently on IV vancomycin and Zosyn. Infectious disease consultation has been requested to evaluate the patient Notes reviewed Temps ok Swallowing ok NO new complaints Antibiotics: Zosyn Past Medical History: Cholecystectomy Seizures Allergies/Adverse Reactions: Allergies No Known Allergies Allergy (Verified 02/12/18 14:55) Objective Vital Signs 02/17/18 16:00 02/17/18 20:00 02/17/18 21:02 Temperature 97.6 F 98.8 F Pulse Rate 89 103 H 114 H Respiratory Rate 16 20 15 Blood Pressure 96/53 L 111/66 Pulse Oximetry 91 L 96 02/17/18 22:06 02/18/18 00:00 02/18/18 02:06 Temperature 98.8 F 98.1 F 98.1 F Pulse Rate 103 H 98 H 98 H Respiratory Rate 20 18 18 Blood Pressure 111/66 113/69 113/69 Pulse Oximetry 96 96 96 02/18/18 08:00 02/18/18 12:00 Temperature 98.4 F 97.9 F Pulse Rate 83 100 H Respiratory Rate 16 16 Blood Pressure 124/58 L 117/66 Pulse Oximetry 90 L 94 L Intake & Output 02/17/18 02/18/18 02/18/18 18:59 06:59 18:59 Intake Total 100 / 100 920 / 920 0 / 0 Balance 100 / 100 920 / 920 0 / 0 Weight 59.3 kg Intake: IV 100 / 100 200 / 200 0 / 0 Zosyn 4.5 GM Premix 4.5 gm In 100 / 100 200 / 200 0 / 0 100 ml @ 300 mls/hr IV.SIG Q6H [facility] Rx#:[id number] Oral 720 / 720 Other: # Voids 2 Date of Last Bowel Movement 02/17/18 # Bowel Movements 1 02/17/18 12:55 Blood - Peripheral Aerobic Blood Culture - Preliminary No growth in 1 day 02/17/18 12:55 Blood - Peripheral Anaerobic Blood Culture - Preliminary No growth in 1 day 02/17/18 12:50 Blood - Peripheral Aerobic Blood Culture - Preliminary No growth in 1 day 02/17/18 12:50 Blood - Peripheral Anaerobic Blood Culture - Preliminary No growth in 1 day Lab - Chemistry Results 02/17/18 07:24 Creatinine 0.85 Estimated GFR 80 L Imaging: ITS Impressions Head CT 02/11/18 00:00 CONCLUSION: 1. No acute intracranial abnormality. 2. Cervical soft tissue emphysema extending towards the skull base. Please see CT neck report for additional details. . Soft Tissue Neck CT 02/11/18 00:00 CONCLUSION: 1. Extensive anterior cervical soft tissue injury with diffuse subcutaneous emphysema extending to near the skull base, as described above. 2. There is an ET tube in good position. There is obliteration of the laryngeal and oropharyngeal air and fat planes consistent with diffuse edema. 3. Suspect right thyroid cartilage injury which appears displaced posteriorly. 4. Focal circumferential mild to moderate narrowing of the distal right common carotid artery just below the bulb. No definitive evidence for dissection or active hemorrhage at this time. Cannot exclude focal vasospasm. Chest X-Ray 02/13/18 06:00 CONCLUSION: 1. Status post extubation without acute abnormality. Brachial Plexus MRI 02/15/18 00:00 CONCLUSION: 1. Extensive soft tissue inflammation as described above within the neck extending from the proximal cervical region into the upper mediastinum. The retropharyngeal space leads into the mediastinum and may result in mediastinitis. 2. Right-sided prevertebral muscular inflammation 3. No evidence of abscess formation 4. Poor delineation of the neurologic structures within the right brachial plexus which are obscured by extensive inflammation. 5. No evidence of vascular occlusion or dissection. 6. Verbal report given to Dr. Wilkinson Cervical Spine MRI 02/15/18 00:00 CONCLUSION: 1. Prevertebral and paraspinal inflammation. 2. No findings to suggest nerve root avulsion or pseudomeningocele development. 3. Otherwise normal evaluation of the cervical spine without evidence of acute bony trauma or disc herniation. Head MRI 02/15/18 00:00 CONCLUSION: 1. Right sided deep white matter and subcortical white matter T2 hyperintensities with restricted diffusion. These may represent small embolic infarcts or operating inflammatory/infectious disease. 2. No evidence of significant mass effect, shift or hemorrhage. 3. Otherwise normal exam. Head CTA 02/15/18 11:39 CONCLUSION: Negative CTA Head. Neck CTA 02/15/18 11:39 CONCLUSION: 1. Focal vascular injury involving the distal right internal carotid artery with focal narrowing followed by post traumatic aneurysm as described. There is no evidence of intraluminal filling defect, significant stenosis or distal dissection. 2. Intact left carotid 3. Dominant left vertebral artery. Physical Exam: GENERAL: awake and alert, not in respiratory distress. SKIN: Cool and dry. No generalized rash. Has dry abarsions on L side of neck , and dry wounds with sutures in place, no redness noted. No evidence of embolic lesions. HEAD: Atraumatic. Normocephalic. No temporal wasting, or tenderness. EYES: [place] conjunctiva. Has scleral hemorrhage on L eye. EARS, NOSE AND THROAT: Nose without bleeding or purulent nasal discharge. No sinus tenderness. Mucous membranes pink and moist. Has some white coating on her tongues. NECK: Has sutured lacerations on R side of neck with sutures in place, there is improving erythema and induration around the area, with min tenderness. Supple. L side with multiple dry wounds and small sutured lacerations including to the L lower cheek, no redness CARDIOVASCULAR: Regular rate and rhythm. No murmurs, rubs or gallops heard RESPIRATORY: Clear to auscultation. Breath sounds equal bilaterally. No rales , wheezing or rhonchi ABDOMEN: Soft, non-tender, nondistended. Bowel sounds present and normoactive. No guarding. No rebound. No organomegaly. EXTREMITIES: No clubbing, cyanosis, or edema.No joint effusion, has good ROM. No calf tenderness. Well perfused and warm. NEUROLOGICAL: Awake and alert. NO facial asymmetry noted, tongue midline. Weakness in RUE, about 3-4/5 compared to the LUE. Symmetrical motor in BLE. No Babinski, no clonus PSYCHIATRIC: Flat affect, calm and cooperative. LINE: No evidence of infection Assessment and Plan - Plan Impression Acute/subacute infarcts on brain MRI, possibly due to the injuries to her neck from dog bite, more on R likely due to ARAMIS injury Multiple dog bites to neck and face, severe on R Low grade fever resolved, likely due to ongoing inflammation in her neck as a result of the dog bite Seizures Recommendation Continue Zosyn Follow C/S MOnitor progress I will determine course of Abx once work-up completed
[2018-02-18] MEDS ORDERED: Pharmacy Ordered Lab Info OTHER ONE (12:45)
[2018-02-19] MEDS: Enoxaparin Inj 40 MG/0.4 ML Syringe SQ SCH (00:01)
[2018-02-19] MEDS: Piperacil/Tazo 4.5 GM Premix 4.5 GM/100 ML BAG IV.SIG SCH ×2 (00:01→05:37)
[2018-02-19] MEDS: Senna/Docusate Sodium 8.6/50 MG Tablet PO SCH (08:56)
[2018-02-19] MEDS: Aspirin 325 MG Tablet PO SCH (08:56)
[2018-02-19] MEDS: levETIRAcetam 500 MG Tablet PO SCH (08:56)
[2018-02-19] MEDS: Sertraline 50 MG Tablet PO SCH (08:56)
[2018-02-19] MEDS: Sodium Chloride 0.9% 2 ML Flush BID IV.FLUSH SCH (08:57)
[2018-02-19] MEDS: lamoTRIgine 100 MG Tablet PO SCH (08:57)
[2018-02-19] MEDS: carBAMazepine 100 MG Chewable Tablets PO SCH (08:57)
--- NOTE | 2018-02-19 11:24 | P.PNID ---
Subjective Remarks: Patient is a 27-year-old female, brought into the hospital as a trauma alert. Patient apparently has known seizures, and she has not been taking her medication. She had a seizure at home and during the course of her seizure the dog attacked the patient and she sustained multiple bites on her neck and left side of the face. When EMS initially evaluated the patient she was apparently complaining of shortness of breath, and over the course of the evaluation she became lethargic, and started having some respiratory difficulty and required intubation. Patient had undergone surgery on admission, and had exploration of the right neck, ligation of branches of the jugular vein, irrigation of the neck , and placement of a drain. She had primary closure of the multiple bilateral facial and neck laceration. She was successfully extubated on February 12. She had been on Unasyn, and on February 13 she had some fevers up to 100.4. Her antibiotic was changed to Zosyn, and on the vancomycin was added. Her fevers have improved. She has had multiple imaging studies, and CT of the neck showed that there are some evidence of injury to the right ICA. MRI of the brain is showing evidence of acute/subacute infarcts. Patient felt also to have brachial plexopathy causing the right-sided weakness in her RUE. Patient states she has some mild difficulty in swallowing but has not had any choking spells. She is currently on IV vancomycin and Zosyn. Infectious disease consultation has been requested to evaluate the patient Notes reviewed Temps ok Swallowing ok NO new complaints Antibiotics: Zosyn Past Medical History: Cholecystectomy Seizures Allergies/Adverse Reactions: Allergies No Known Allergies Allergy (Verified 02/12/18 14:55) Objective Vital Signs 02/18/18 12:00 02/18/18 16:00 02/18/18 20:00 Temperature 97.9 F 97.7 F 98.2 F Pulse Rate 100 H 98 H 94 H Respiratory Rate 16 17 20 Blood Pressure 117/66 114/67 128/63 Pulse Oximetry 94 L 92 L 95 02/19/18 00:00 02/19/18 08:00 Temperature 97.1 F L 98.1 F Pulse Rate 80 87 Respiratory Rate 18 18 Blood Pressure 122/70 132/69 Pulse Oximetry 98 95 Intake & Output 02/18/18 02/19/18 02/19/18 18:59 06:59 18:59 Intake Total 200 / 200 642 / 642 Balance 200 / 200 642 / 642 Weight 59.6 kg Intake: IV 200 / 200 200 / 200 Zosyn 4.5 GM Premix 4.5 gm In 200 / 200 200 / 200 100 ml @ 300 mls/hr IV.SIG Q6H MARY Rx#:[id number] Oral 442 / 442 Other: # Voids 2 Date of Last Bowel Movement 03/19/18 02/18/18 02/18/18 # Bowel Movements 1 02/17/18 12:55 Blood - Peripheral Aerobic Blood Culture - Preliminary No growth in 2 days 02/17/18 12:55 Blood - Peripheral Anaerobic Blood Culture - Preliminary No growth in 2 days 02/17/18 12:50 Blood - Peripheral Aerobic Blood Culture - Preliminary No growth in 2 days 02/17/18 12:50 Blood - Peripheral Anaerobic Blood Culture - Preliminary No growth in 2 days Imaging: ITS Impressions Head CT 02/11/18 00:00 CONCLUSION: 1. No acute intracranial abnormality. 2. Cervical soft tissue emphysema extending towards the skull base. Please see CT neck report for additional details. . Soft Tissue Neck CT 02/11/18 00:00 CONCLUSION: 1. Extensive anterior cervical soft tissue injury with diffuse subcutaneous emphysema extending to near the skull base, as described above. 2. There is an ET tube in good position. There is obliteration of the laryngeal and oropharyngeal air and fat planes consistent with diffuse edema. 3. Suspect right thyroid cartilage injury which appears displaced posteriorly. 4. Focal circumferential mild to moderate narrowing of the distal right common carotid artery just below the bulb. No definitive evidence for dissection or active hemorrhage at this time. Cannot exclude focal vasospasm. Chest X-Ray 02/13/18 06:00 CONCLUSION: 1. Status post extubation without acute abnormality. Brachial Plexus MRI 02/15/18 00:00 CONCLUSION: 1. Extensive soft tissue inflammation as described above within the neck extending from the proximal cervical region into the upper mediastinum. The retropharyngeal space leads into the mediastinum and may result in mediastinitis. 2. Right-sided prevertebral muscular inflammation 3. No evidence of abscess formation 4. Poor delineation of the neurologic structures within the right brachial plexus which are obscured by extensive inflammation. 5. No evidence of vascular occlusion or dissection. 6. Verbal report given to Dr. Wilkinson Cervical Spine MRI 02/15/18 00:00 CONCLUSION: 1. Prevertebral and paraspinal inflammation. 2. No findings to suggest nerve root avulsion or pseudomeningocele development. 3. Otherwise normal evaluation of the cervical spine without evidence of acute bony trauma or disc herniation. Head MRI 02/15/18 00:00 CONCLUSION: 1. Right sided deep white matter and subcortical white matter T2 hyperintensities with restricted diffusion. These may represent small embolic infarcts or operating inflammatory/infectious disease. 2. No evidence of significant mass effect, shift or hemorrhage. 3. Otherwise normal exam. Head CTA 02/15/18 11:39 CONCLUSION: Negative CTA Head. Neck CTA 02/15/18 11:39 CONCLUSION: 1. Focal vascular injury involving the distal right internal carotid artery with focal narrowing followed by post traumatic aneurysm as described. There is no evidence of intraluminal filling defect, significant stenosis or distal dissection. 2. Intact left carotid 3. Dominant left vertebral artery. Physical Exam: GENERAL: awake and alert, not in respiratory distress. SKIN: Cool and dry. No generalized rash. HEAD: Atraumatic. Normocephalic. No temporal wasting, or tenderness. EYES: [place] conjunctiva. Has scleral hemorrhage on L eye. EARS, NOSE AND THROAT: Mucous membranes pink and moist. Has some white coating on her tongues. NECK: Has sutured lacerations on R side of neck with sutures in place, there is no erythema and improving induration around the area, with min tenderness. Supple. L side with multiple dry wounds and small sutured lacerations including to the L lower cheek, no redness CARDIOVASCULAR: Regular rate and rhythm. No murmurs, rubs or gallops heard RESPIRATORY: Clear to auscultation. Breath sounds equal bilaterally. No rales , wheezing or rhonchi ABDOMEN: Soft, non-tender, nondistended. Bowel sounds present and normoactive. No guarding. No rebound. No organomegaly. EXTREMITIES: No clubbing, cyanosis, or edema.No joint effusion, has good ROM. No calf tenderness. Well perfused and warm. NEUROLOGICAL: Awake and alert. NO facial asymmetry noted, tongue midline. Weakness in RUE, about 3-4/5 compared to the LUE. Symmetrical motor in BLE. No Babinski, no clonus PSYCHIATRIC: Flat affect, calm and cooperative. LINE: No evidence of infection Assessment and Plan - Plan Impression Acute/subacute infarcts on brain MRI, possibly due to the injuries to her neck from dog bite, more on R likely due to ARAMIS injury Multiple dog bites to neck and face, severe on R Low grade fever resolved, likely due to ongoing inflammation in her neck as a result of the dog bite Seizures Recommendation Change to po Augmentin 500 TID x 14 days - she wants to try the tablets; if not swallowing well, will switch to suspension I spoke with Dr Wilkinson yesterday and he agrees also that infarcts due to the vascular injury from the bite Explained plan to patient
[2018-02-19] MEDS ORDERED: Amoxicillin/Clavulanate 500/125 MG Tablet PO SCH (14:00)
--- NOTE | 2018-02-20 15:35 | P.DS ---
<Lolis Wilkerson - Last Filed: 02/20/18 15:30> Date of admission: 02/11/18 18:06 Primary care physician: Chris Hernandez MD Attending physician on discharge: Makenna Wang Anticipated date of discharge: 02/19/18 Brief History from admission: Dog bite DS: Diagnosis - Discharge Diagnosis (1) Dog bite of multiple sites of scalp and neck Status: Acute (2) Dog bite of face Status: Acute DS: Medications - Discharge Medications Prescriptions: amoxicillin-pot clavulanate [Augmentin] 1 tab PO Q8HR 14 Days #42 tab oxycodone-acetaminophen [Percocet] 1 tab PO Q6H PRN 3 Days #12 tab PRN Reason: Pain DS: Summary Hospital Course: NOOKS[place]: This is a 27-year-old female who reportedly had a seizure at home in the presence of several pit bulls. 1 of the put bowls became excited and bit the patient on the right side of her face and left neck. Initially the patient was awake and alert complaining of shortness of breath, then she began to deteriorate. She became lethargic and was gurgling blood, so she was intubated by EMS. INJURIES: BILAT face lacerations/dog bites Puncture wounds BILAT neck Extensive anterior cervical soft tissue injury with diffuse subcutaneous emphysema extending to near the skull base Suspected RIGHT thyroid cartilage injury Mild to moderate narrowing of the distal RIGHT common carotid artery ?Aspiration PMHx: Epilepsy Procedures: 02/11: Intubated 02/11: Exploration of the right neck with ligation of various branches of the jugular vein and irrigation of the neck tissues with drain placement. 02/11: Primary closure of multiple bilateral face and neck lacerations (>10cm) 02/12: Extubated Consults: Plastics. Neurology. Infectious disease. Neuropsych. Case management. The patient really wants to go home today. The patient is now tolerating a po diet. Eating and drinking well. Pain is being managed well with PO pain medications, and patient is being a provided with a script for pain meds upon discharge. [This patient will be prescribed narcotic pain medications due to her traumatic injuries. The patient has a normal physiological response to severe traumatic injuries and surgery. He will need acute pain management with prescribed narcotic treatment. The [employer] prescription drug monitoring program database has been queried.] (NO driving while taking narcotic pain medication enforced to patient.) Pt is having regular bowel movements, and have recommended to patient to continue with stool softeners while taking narcotic pain medications to prevent constipation. Pt has been participating in PT and OT while admitted at [facility] and has been ambulating with their assistance and independently. No home PT needs All follow up appointments have been provided and discussed with the patient. It is recommended that the patient keeps all his follow up appointments for continued recovery. Patient's condition and plan of care discussed with collaborating trauma surgeon. He is agreeable to plan for discharge today. Therefore, the patient is stable to be safely discharged home from a trauma surgery standpoint. Thank you for allowing us to participate in her care. We wish Michelle the best in her recovery. Puncture wounds/dog bites BILAT neck ?Aspiration Respiratory failure in trauma 02/11: Intubated 02/11: Exploration of the right neck with ligation of various branches of the jugular vein and irrigation of the neck tissues with drain placement. 02/11: Primary closure of multiple bilateral face and neck lacerations (>10cm) 02/12: Extubated Scans: 02/15: MRI brain -right small embolic infarcts or inflammatory/infectious disease. 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 No root avulsion. But stable. 02/15: Brachial plexus MRI- Extensive soft tissue inflammation extending from the neck into the upper mediastinum. R prevertebral muscular inflammation 02/12: EEG- neg sz Supportive care Aggressive pulmonary toileting Duo nebs as needed Pain management Seizure precautions Seizure prophylaxis -Keppra along with home medications Encourage out of bed PT and OT ordered Wound care: Apply Bacitracin BID to neck wounds and leave DAVE Infectious disease consulted and assisted in management and care IV Abx: Zosyn 02/17: Blood culture pending Collaborated with Dr. Good -and she is cleared the patient for discharge Recommends Augmentin 500 mg TID for discharge Afebrile Labs stable Bowel regimen ASA 325mg QD Lovenox 40mg QD Follow-up with [facility] outpatient Follow-up in trauma clinic outpatient Epilepsy RIGHT parietal CVA Neurology consulted and assisting in management and care 02/15: MRI brain -right small embolic infarcts or inflammatory/infectious disease. 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 No root avulsion. But stable. 02/15: Brachial plexus MRI- Extensive soft tissue inflammation extending from the neck into the upper mediastinum. R prevertebral muscular inflammation 02/12: EEG- neg sz Seizure precautions -Keppra Continue Home seizure regimen Lamictal 200 mg BID. Tegretol 300 mg BID. Zonagram 300 mg BID. Neuropsychology consulted Echocardiogram pending Neurology has cleared the patient for discharge -follow-up outpatient - Time Spent with Patient Total time spent providing and/or coordinating discharge services: Greater than 30 minutes - Quality: VTE Deep Vein Thrombosis/Pulmonary Embolism Present on Admission: No Exam Vital signs: Intake & Output 02/19/18 02/20/18 02/20/18 18:59 06:59 18:59 Other: Date of Last Bowel Movement 02/18/18 Narrative: GENERAL: This is a 27-year-old female OOB in room. No distress noted. SKIN: Warm and dry. HEAD: Atraumatic. Normocephalic. EYES: PERRLA ENT: No nasal bleeding or discharge. Mucous membranes pink and moist. NECK: Trachea midline. No JVD. Lacerations noted to right neck with sutures in place. DAVE. Slight swelling and scattered erythema noted. Scattered lacerations noted to left side of neck. DAVE. No drainage noted. CARDIOVASCULAR: Regular rate and rhythm. RESPIRATORY: No accessory muscle use. Lungs are clear to auscultation. Breath sounds equal bilaterally. No distress or dyspnea. GASTROINTESTINAL: BS + x 4 quads. Abdomen soft, non-tender, nondistended. MUSCULOSKELETAL: Extremities without cyanosis, or edema. + peripheral pulses x 4 extremities. Warm with good capillary refill and sensation. MAEW. NEUROLOGICAL: Awake and alert. Normal speech and pattern. Results Procedures completed during hospitalization: , Labs on day of discharge: Preliminary micro results at discharge 02/17/18 12:55 Aerobic Blood Culture - Preliminary Blood - Peripheral No growth in 3 days Anaerobic Blood Culture - Preliminary No growth in 3 days 02/17/18 12:50 Aerobic Blood Culture - Preliminary Blood - Peripheral No growth in 3 days Anaerobic Blood Culture - Preliminary No growth in 3 days - Impressions ITS Impressions Head CT 02/11/18 00:00 CONCLUSION: 1. No acute intracranial abnormality. 2. Cervical soft tissue emphysema extending towards the skull base. Please see CT neck report for additional details. . Soft Tissue Neck CT 02/11/18 00:00 CONCLUSION: 1. Extensive anterior cervical soft tissue injury with diffuse subcutaneous emphysema extending to near the skull base, as described above. 2. There is an ET tube in good position. There is obliteration of the laryngeal and oropharyngeal air and fat planes consistent with diffuse edema. 3. Suspect right thyroid cartilage injury which appears displaced posteriorly. 4. Focal circumferential mild to moderate narrowing of the distal right common carotid artery just below the bulb. No definitive evidence for dissection or active hemorrhage at this time. Cannot exclude focal vasospasm. Chest X-Ray 02/13/18 06:00 CONCLUSION: 1. Status post extubation without acute abnormality. Brachial Plexus MRI 02/15/18 00:00 CONCLUSION: 1. Extensive soft tissue inflammation as described above within the neck extending from the proximal cervical region into the upper mediastinum. The retropharyngeal space leads into the mediastinum and may result in mediastinitis. 2. Right-sided prevertebral muscular inflammation 3. No evidence of abscess formation 4. Poor delineation of the neurologic structures within the right brachial plexus which are obscured by extensive inflammation. 5. No evidence of vascular occlusion or dissection. 6. Verbal report given to Dr. Wilkinson Cervical Spine MRI 02/15/18 00:00 CONCLUSION: 1. Prevertebral and paraspinal inflammation. 2. No findings to suggest nerve root avulsion or pseudomeningocele development. 3. Otherwise normal evaluation of the cervical spine without evidence of acute bony trauma or disc herniation. Head MRI 02/15/18 00:00 CONCLUSION: 1. Right sided deep white matter and subcortical white matter T2 hyperintensities with restricted diffusion. These may represent small embolic infarcts or operating inflammatory/infectious disease. 2. No evidence of significant mass effect, shift or hemorrhage. 3. Otherwise normal exam. Head CTA 02/15/18 11:39 CONCLUSION: Negative CTA Head. Neck CTA 02/15/18 11:39 CONCLUSION: 1. Focal vascular injury involving the distal right internal carotid artery with focal narrowing followed by post traumatic aneurysm as described. There is no evidence of intraluminal filling defect, significant stenosis or distal dissection. 2. Intact left carotid 3. Dominant left vertebral artery. <Makenna Wang - Last Filed: 02/20/18 21:09> Date of admission: 02/11/18 18:06 Primary care physician: Chris Hernandez MD DS: Summary - Time Spent with Patient Total time spent providing and/or coordinating discharge services: Results Labs on day of discharge: Preliminary micro results at discharge 02/17/18 12:55 Aerobic Blood Culture - Preliminary Blood - Peripheral No growth in 3 days Anaerobic Blood Culture - Preliminary No growth in 3 days 02/17/18 12:50 Aerobic Blood Culture - Preliminary Blood - Peripheral No growth in 3 days Anaerobic Blood Culture - Preliminary No growth in 3 days - Impressions ITS Impressions Head CT 02/11/18 00:00 CONCLUSION: 1. No acute intracranial abnormality. 2. Cervical soft tissue emphysema extending towards the skull base. Please see CT neck report for additional details. . Soft Tissue Neck CT 02/11/18 00:00 CONCLUSION: 1. Extensive anterior cervical soft tissue injury with diffuse subcutaneous emphysema extending to near the skull base, as described above. 2. There is an ET tube in good position. There is obliteration of the laryngeal and oropharyngeal air and fat planes consistent with diffuse edema. 3. Suspect right thyroid cartilage injury which appears displaced posteriorly. 4. Focal circumferential mild to moderate narrowing of the distal right common carotid artery just below the bulb. No definitive evidence for dissection or active hemorrhage at this time. Cannot exclude focal vasospasm. Chest X-Ray 02/13/18 06:00 CONCLUSION: 1. Status post extubation without acute abnormality. Brachial Plexus MRI 02/15/18 00:00 CONCLUSION: 1. Extensive soft tissue inflammation as described above within the neck extending from the proximal cervical region into the upper mediastinum. The retropharyngeal space leads into the mediastinum and may result in mediastinitis. 2. Right-sided prevertebral muscular inflammation 3. No evidence of abscess formation 4. Poor delineation of the neurologic structures within the right brachial plexus which are obscured by extensive inflammation. 5. No evidence of vascular occlusion or dissection. 6. Verbal report given to Dr. Wilkinson Cervical Spine MRI 02/15/18 00:00 CONCLUSION: 1. Prevertebral and paraspinal inflammation. 2. No findings to suggest nerve root avulsion or pseudomeningocele development. 3. Otherwise normal evaluation of the cervical spine without evidence of acute bony trauma or disc herniation. Head MRI 02/15/18 00:00 CONCLUSION: 1. Right sided deep white matter and subcortical white matter T2 hyperintensities with restricted diffusion. These may represent small embolic infarcts or operating inflammatory/infectious disease. 2. No evidence of significant mass effect, shift or hemorrhage. 3. Otherwise normal exam. Head CTA 02/15/18 11:39 CONCLUSION: Negative CTA Head. Neck CTA 02/15/18 11:39 CONCLUSION: 1. Focal vascular injury involving the distal right internal carotid artery with focal narrowing followed by post traumatic aneurysm as described. There is no evidence of intraluminal filling defect, significant stenosis or distal dissection. 2. Intact left carotid 3. Dominant left vertebral artery. Addendum Is overall stable wounds are clean will be discharged with outpatient follow-up Discharge Plan - Discharge Order Discharge Orders: Discharge Order (Routine); Ordered 02/19/18 Ordered By: Lolis Wilkerson - Physicians Team Primary Care Provider: Chris Hernandez Attending Provider: Anish Meneses Other Providers: Althea Carrasco MD ; Manuel Rm MD ; Dheeraj Zayas MD ; [employer] ; Terry Paiz MD ; Lolis Wilkerson ARNP ; Vazquez Thomas MD ; Makenna Wang MD ; Rachel Hirsch ARNP ; Anish Meneses MD ; Neeraj Sheldon, PhD ; Nimisha Good MD
== END 2018-02-19 13:06 | disposition home or self-care (01) | DRG 579 ==
LOC: NEPI 17:34 → EDBD 18:06 → NEDH 18:06 → HPAC 19:30 → NEDH 19:30 → N03 21:10 → N07 02-13 15:28
PROVIDERS: ADMIT Surgery; ATTEND Surgery
PROC: IDMOUTH (2018-02-11 17:56)
CPT/HCPCS: 70450; 70491; 70496; 70498; 70551; 71010; 71045; 72156; 73220; 76937; 80048; 80156; 80202; 82040; 82565; 82805; 84703; 85025; 85610; 85730; 86850; 86900; 86901; 87040; 87641; 90471; 90658; 90686; 90715; 90774; 90775; 90784; 92526; 92610; 93005; 93306; 94003; 94150; 94640; 94657; 94664; 94665; 95819; 96374; 96375; 97110; 97116; 97162; 97167; 97535; 99291; A9585; C8952; C9113; C9238; G0195; G0390; J0295; J1644; J1650; J1953; J2250; J2270; J2405; J2543; J2704; J2720; J3010; J3370; J3480; J7030; J7050; Q2038; Q9967